=== PATIENT | female | born 1935 | race Caucasian/White ===

== ENCOUNTER → 2016-08-12 | Outpatient (CLI) | payer MEDICARE, BC ==
[~2016-08-12] MED LIST: DENOSUMAB 60 MG/ML 1 ML SYRINGE SQ ONE
[2016-08-12 11:51] VITALS: BP 127/62; PULSE 73; RESP 17; TEMP 98.7
== END | disposition home or self-care (01) ==
LOC: PROCWHC3 11:03
PROVIDERS: ATTEND Family Medicine
DX: M81.0 Age-related osteoporosis without current pathological fracture (principal)
CPT/HCPCS: 96372; J0897

== ENCOUNTER → 2017-08-30 | Outpatient (CLI) | payer MEDICARE, BC ==
[2017-08-30 11:11] VITALS: BP 143/65; PULSE 74; RESP 16; TEMP 97.9
== END | disposition home or self-care (01) ==
LOC: PROCWHC3 10:44
PROVIDERS: ATTEND Family Medicine
DX: M81.0 Age-related osteoporosis without current pathological fracture (principal)
CPT/HCPCS: 96372; J0897

== ENCOUNTER → 2018-03-24 | Outpatient (CLI) | payer MEDICARE, BC ==
[2018-03-24 12:57] VITALS: BP 159/75; PULSE 102; RESP 18; TEMP 97.9
== END ==
LOC: PROCWHC3 12:23
PROVIDERS: ATTEND Family Medicine
DX: M81.0 Age-related osteoporosis without current pathological fracture (principal)
CPT/HCPCS: 96372; J0897

== ENCOUNTER → 2018-08-25 | Outpatient (CLI) | payer MEDICARE, BC ==
[2018-08-25 12:43] VITALS: BP 124/57; PULSE 66; RESP 16; TEMP 97.9
== END ==
LOC: PROCWHC3 12:25
PROVIDERS: ATTEND Family Medicine
DX: M81.0 Age-related osteoporosis without current pathological fracture (principal)
CPT/HCPCS: 96372; J0897

== ENCOUNTER → 2018-12-21 | Outpatient (CLI) | payer MEDICARE, BC ==
--- NOTE | 2018-12-21 15:41 | US ---
EXAMINATION TYPE: US venous doppler duplex LE DATE OF EXAM: 12/21/2018 2:37 PM LOWER EXTREMITY VENOUS INSUFFICIENCY CLINICAL HISTORY: E11.51 Peripheral circulatory disorder associated. SIDE PERFORMED: Bilateral 1) Color flow is present and patency is documented in the following vessels. No DVT or SVT is noted . EIV Common Femoral Vein Deep Femoral Vein Femoral Vein Popliteal Vein Proximal Calf Veins Greater Saph Vein Upper Small Saph Vein 2) There is venous reflux noted at the following venous levels: none 3) Incompetent perforators are noted at these levels: none IMPRESSION: No evidence for venous reflux for DVT.
== END ==
LOC: RADUSWWP 13:40
PROVIDERS: ATTEND Family Medicine
DX: E11.51 Type 2 diabetes mellitus with diabetic peripheral angiopathy without gangrene (principal); R60.0 Localized edema
CPT/HCPCS: 93922; 93970

== ENCOUNTER → 2019-04-05 | Outpatient (CLI) | payer MEDICARE, BC ==
[2019-04-05 11:11] VITALS: BP 144/84; PULSE 84; RESP 16; TEMP 97.9
== END ==
LOC: PROCWHC3 10:58
PROVIDERS: ATTEND Family Medicine
DX: M81.0 Age-related osteoporosis without current pathological fracture (principal)
CPT/HCPCS: 96372; J0897

== ENCOUNTER → 2019-10-05 | Outpatient (CLI) | payer MEDICARE, BC ==
[2019-10-05 12:12] VITALS: BP 159/72; PULSE 67; RESP 16; TEMP 97.8
== END | disposition home or self-care (01) ==
LOC: PROCWHC3 11:19
DX: M81.0 Age-related osteoporosis without current pathological fracture (principal)
CPT/HCPCS: 96372; J0897

== ENCOUNTER → 2020-04-08 | Outpatient (CLI) | payer MEDICARE, BC ==
[~2020-04-08] MED LIST changes: +DENOSUMAB 60 MG/ML 1 ML SYRINGE SQ NR; -DENOSUMAB 60 MG/ML 1 ML SYRINGE SQ ONE
[2020-04-08 10:34] VITALS: BP 177/71; PULSE 89; RESP 18; TEMP 97.8
== END | disposition home or self-care (01) ==
LOC: PROCWHC3 10:25
PROVIDERS: ATTEND Family Medicine
DX: M81.0 Age-related osteoporosis without current pathological fracture (principal)
CPT/HCPCS: 96372; J0897

== ENCOUNTER → 2020-06-03 | Outpatient (CLI) | payer MEDICARE, BC ==
[2020-06-03 13:51] LABS: Basophils # (A) 0.1 k/uL (0-0.2); Basophils % (A) 1 %; Eosinophils # (A) 0.2 k/uL (0-0.7); Eosinophils % (A) 2 %; HCT 39.7 % (34.0-46.0); HGB 13.7 gm/dL (11.4-16.0); Lymphocytes % (A) 11 %; MCH 31.4 pg (25.0-35.0); MCHC 34.4 g/dL (31.0-37.0); MCV 91.3 fL (80.0-100.0); Monocytes # (A) 0.5 k/uL (0-1.0); Monocytes % (A) 5 %; Neutrophils # (A) 7.6 k/uL (1.3-7.7); Neutrophils % (A) 81 %; Platelet Count 463 k/uL (150-450); RBC 4.35 m/uL (3.80-5.40); RDW 13.2 % (11.5-15.5); WBC 9.4 k/uL (3.8-10.6)
[2020-06-03 14:00] LABS: Calcium 9.4 mg/dL (8.4-10.2); Potassium 4.2 mmol/L (3.5-5.1)
== END | disposition home or self-care (01) ==
LOC: LABPAT 12:55
PROVIDERS: ATTEND Obstetrics & Gynecology
DX: Z01.812 Encounter for preprocedural laboratory examination (principal); N81.4 Uterovaginal prolapse, unspecified; E11.9 Type 2 diabetes mellitus without complications; I10 Essential (primary) hypertension; R94.31 Abnormal electrocardiogram [ECG] [EKG]
CPT/HCPCS: 36415; 80048; 85025; 86850; 86900; 86901; 87077; 87086; 87186; 93005

== ENCOUNTER → 2020-06-07 | Outpatient (CLI) | payer MEDICARE, BC ==
--- NOTE | 2020-06-07 12:34 | CT ---
EXAMINATION TYPE: CT chest wo con DATE OF EXAM: 06/07/2020 COMPARISON: None HISTORY: Pleural scarring CT DLP: 222.6 mGycm, Automated exposure control for dose reduction was used. CONTRAST: Performed injected with 0 mL of Isovue 300. TECHNIQUE: Axial images were obtained at 5 mm thick sections. Reconstructed images are reviewed on [employer] computer in the coronal plane. FINDINGS: Portion of the thyroid visualized is normal. There is a 0.3 cm by 0.6 cm dimension focus of density at the left apex. This could be some apical sc arring. Nodule is not excluded. Follow-up is recommended. There appears to be a loculated pleural effusion on the right extending from the apex to the base. Co mpressive atelectasis may be at the right lung base. There is a lobular mass in the posterior right upper lobe measuring 5.4 x 4.4 x 6.3 cm. Additional wo rkup for neoplasm is recommended. Left lung appears otherwise clear No enlarged mediastinal or hilar adenopathy is evident. The ascending aorta diameter at the level o f the main pulmonary artery is 2.8 cm. The main pulmonary artery diameter at the bifurcation is 2.5 cm. Very minimal pericardial effusion may be present. Limited CT sections are obtained through the upper abdomen. Abdomen is essentially unremarkable. IMPRESSIONS: 1. 5 x 4 x 6 cm lobular mass right upper lobe suspicious for neoplasm. 2. Loculated right pleural effusion. 3. Compressive atelectasis right base. 4. Enlarged paratracheal lymphadenopathy suspicious for metastatic disease.
== END ==
LOC: RADCTMAIN 11:06
PROVIDERS: ATTEND Family Medicine
DX: J90 Pleural effusion, not elsewhere classified (principal); J98.11 Atelectasis; R59.1 Generalized enlarged lymph nodes
CPT/HCPCS: 71250

== ENCOUNTER 2020-06-10 13:52 | Inpatient (IN) | payer MEDICARE, BC ==
[2020-06-10] MEDS ORDERED: SODIUM CHLORIDE 0.9% 1,000 ML IV STA (14:40)
--- NOTE | 2020-06-10 14:43 | ED ---
General Adult HPI - General Chief complaint: Shortness of Breath Stated complaint: Weakness Time Seen by Provider: 06/10/20 14:02 Source: patient, family, RN notes reviewed, old records reviewed Mode of arrival: ambulatory Limitations: no limitations - History of Present Illness Initial comments: Patient is a pleasant 84-year-old female presenting to the emergency Department with complaints of fatigue and generalized weakness. Onset of symptoms was c lose to a month ago. Patient does have mild cough. No dyspnea. Patient did have computed tomography scan done several days ago with concerning for right upper lobe mass. Patient was diagnosed with pneumonia. Patient has worsening symptoms. Patient has decreased oral intake. Patient feels dry and thirsty. Patient also had recent urinary tract infection on laboratory work from a few days ago. - Related Data Home Medications Medication Instructions Recorded Confirmed Aspirin [Adult Low Dose Aspirin EC] 81 mg PO DAILY 08/12/16 04/08/20 Atorvastatin [Lipitor] 20 mg PO DAILY 08/12/16 04/08/20 Calcium Carbonate/Vitamin D3 1 each PO DAILY 08/12/16 04/08/20 [Calcium 500-Vit D3 600 Tablet] Levothyroxine Sodium [Synthroid] 100 mcg PO DAILY 08/12/16 04/08/20 amLODIPine [Norvasc] 10 mg PO DAILY 08/12/16 04/08/20 Metoclopramide HCl [Reglan] 5 mg PO TID 04/08/20 04/08/20 Semaglutide [Ozempic] 0.25 mg SQ 04/08/20 Allergies Allergy/AdvReac Type Severity Reaction Status Date / Time No Known Allergies Allergy Verified 06/10/20 14:00 Review of Systems ROS Statement: Those systems with pertinent positive or pertinent negative responses have been documented in the HPI. ROS Other: All systems not noted in ROS Statement are negative. Constitutional: Denies: fever Eyes: Denies: eye pain ENT: Denies: ear pain Respiratory: Reports: cough Cardiovascular: Denies: chest pain Endocrine: Reports: fatigue Gastrointestinal: Reports: nausea. Denies: abdominal pain Genitourinary: Denies: dysuria Musculoskeletal: Denies: back pain Skin: Denies: rash Neurological: Denies: headache Past Medical History Past Medical History: Asthma, Diabetes Mellitus, GERD/Reflux Additional Past Medical History / Comment(s): broke L knee cap, L hand,R foot, L shoulder, Multiple ribs, R hand, R foot, L wrist, Nose. Branden cataract. kidney stones. plates L wrist. osteoporosis. History of Any Multi-Drug Resistant Organisms: None Reported Past Surgical History: Cholecystectomy Past Anesthesia/Blood Transfusion Reactions: No Reported Reaction Past Psychological History: No Psychological Hx Reported Smoking Status: Former smoker Past Alcohol Use History: None Reported Past Drug Use History: None Reported General Exam Limitations: no limitations General appearance: alert, in no apparent distress Head exam: Present: atraumatic Eye exam: Present: normal appearance, PERRL ENT exam: Present: mucous membranes dry Neck exam: Present: normal inspection Respiratory exam: Present: normal lung sounds bilaterally Cardiovascular Exam: Present: regular rate, normal rhythm GI/Abdominal exam: Present: soft. Absent: tenderness Extremities exam: Present: normal inspection. Absent: pedal edema, calf tenderness Neurological exam: Present: alert Psychiatric exam: Present: normal affect, normal mood Skin exam: Present: normal color Course Vital Signs 06/10/20 06/10/20 06/10/20 13:58 15:00 15:23 Temperature 98.1 F Pulse Rate 102 H 94 Respiratory 24 20 18 Rate Blood Pressure 130/61 108/73 O2 Sat by Pulse 91 L 95 Oximetry - Reevaluation(s) Reevaluation #1: 06/10/20 16:02 Patient has document a urinary tract infection and questionable pneumonia. Patient does meet sepsis criteria diagnosed at 1600. Blood culture and lactic acid were ordered. IV antibiotics ordered. EKG Findings - EKG Comments: EKG Findings:: Sinus rhythm with rate of 96. MA 142. QRS 70. QT 328. QTC 419. Normal axis. Septal Q waves. No acute ST change. Medical Decision Making - Medical Decision Making Patient reevaluated. Patient and family updated on results and plan. Case was discussed with Dr. Judd, who will admit covering with Dr. Munson. - Lab Data Result diagrams: 06/10/20 14:58 06/10/20 14:58 Lab Results 06/10/20 06/10/20 06/10/20 Range/Units 14:58 14:58 14:58 WBC 8.6 (3.8-10.6) k/uL RBC 4.69 (3.80-5.40) m/uL Hgb 14.0 (11.4-16.0) gm/dL Hct 42.4 (34.0-46.0) % MCV 90.4 (80.0-100.0) fL MCH 29.9 (25.0-35.0) pg MCHC 33.1 (31.0-37.0) g/dL RDW 13.8 (11.5-15.5) % Plt Count 345 (150-450) k/uL MPV 6.9 Neutrophils % 89 % Lymphocytes % 3 % Monocytes % 5 % Eosinophils % 1 % Basophils % 0 % Neutrophils # 7.7 (1.3-7.7) k/uL Lymphocytes # 0.3 L (1.0-4.8) k/uL Monocytes # 0.5 (0-1.0) k/uL Eosinophils # 0.1 (0-0.7) k/uL Basophils # 0.0 (0-0.2) k/uL PT 12.4 H (9.0-12.0) sec INR 1.2 H (<1.2) APTT 27.2 (22.0-30.0) sec Sodium 132 L (137-145) mmol/L Potassium 4.5 (3.5-5.1) mmol/L Chloride 96 L (98-107) mmol/L Carbon Dioxide 18 L (22-30) mmol/L Anion Gap 18 mmol/L BUN 26 H (7-17) mg/dL Creatinine 1.15 H (0.52-1.04) mg/dL Est GFR (CKD-EPI)AfAm 51 (>60 ml/min/1.73 sqM) Est GFR (CKD-EPI)NonAf 45 (>60 ml/min/1.73 sqM) Glucose 183 H (74-99) mg/dL Plasma Lactic Acid Brandon (0.7-2.0) mmol/L Calcium 9.5 (8.4-10.2) mg/dL Total Bilirubin 0.7 (0.2-1.3) mg/dL AST 35 (14-36) U/L ALT 18 (4-34) U/L Alkaline Phosphatase 99 (38-126) U/L Total Protein 7.9 (6.3-8.2) g/dL Albumin 4.5 (3.5-5.0) g/dL 06/10/20 Range/Units 14:58 WBC (3.8-10.6) k/uL RBC (3.80-5.40) m/uL Hgb (11.4-16.0) gm/dL Hct (34.0-46.0) % MCV (80.0-100.0) fL MCH (25.0-35.0) pg MCHC (31.0-37.0) g/dL RDW (11.5-15.5) % Plt Count (150-450) k/uL MPV Neutrophils % % Lymphocytes % % Monocytes % % Eosinophils % % Basophils % % Neutrophils # (1.3-7.7) k/uL Lymphocytes # (1.0-4.8) k/uL Monocytes # (0-1.0) k/uL Eosinophils # (0-0.7) k/uL Basophils # (0-0.2) k/uL PT (9.0-12.0) sec INR (<1.2) APTT (22.0-30.0) sec Sodium (137-145) mmol/L Potassium (3.5-5.1) mmol/L Chloride (98-107) mmol/L Carbon Dioxide (22-30) mmol/L Anion Gap mmol/L BUN (7-17) mg/dL Creatinine (0.52-1.04) mg/dL Est GFR (CKD-EPI)AfAm (>60 ml/min/1.73 sqM) Est GFR (CKD-EPI)NonAf (>60 ml/min/1.73 sqM) Glucose (74-99) mg/dL Plasma Lactic Acid Brandon 1.6 (0.7-2.0) mmol/L Calcium (8.4-10.2) mg/dL Total Bilirubin (0.2-1.3) mg/dL AST (14-36) U/L ALT (4-34) U/L Alkaline Phosphatase (38-126) U/L Total Protein (6.3-8.2) g/dL Albumin (3.5-5.0) g/dL - Radiology Data Radiology results: image reviewed (Chest x-ray shows right mid to upper lobe mass with right-sided effusion. Cannot exclude pneumonia.) Critical Care Time Critical Care Time: Yes Total Critical Care Time: 32 Disposition Clinical Impression: Urinary tract infection, Lung mass, Pneumonia, Sepsis Disposition: ADMITTED IP TO THIS HOSP Is patient prescribed a controlled substance at d/c from ED?: No Referrals: Aguilar Aj MD [Primary Care Provider] - 1-2 days Decision Time: 16:02
[2020-06-10 15:12] LABS: Basophils % (A) 0 %; Eosinophils # (A) 0.1 k/uL (0-0.7); Eosinophils % (A) 1 %; HCT 42.4 % (34.0-46.0); Lymphocytes # (A) 0.3 k/uL (1.0-4.8); Lymphocytes % (A) 3 %; MCH 29.9 pg (25.0-35.0); MCHC 33.1 g/dL (31.0-37.0); MCV 90.4 fL (80.0-100.0); Mean Platelet Volume 6.9; Monocytes # (A) 0.5 k/uL (0-1.0); Monocytes % (A) 5 %; Neutrophils # (A) 7.7 k/uL (1.3-7.7); Neutrophils % (A) 89 %; Platelet Count 345 k/uL (150-450); RBC 4.69 m/uL (3.80-5.40); RDW 13.8 % (11.5-15.5); WBC 8.6 k/uL (3.8-10.6)
[2020-06-10 15:20] LABS: INR 1.2 (<1.2); Partial Thromboplastin Time 27.2 sec (22.0-30.0); Prothrombin Time 12.4 sec (9.0-12.0)
[2020-06-10 15:22] LABS: Albumin 4.5 g/dL (3.5-5.0); Calcium 9.5 mg/dL (8.4-10.2); Potassium 4.5 mmol/L (3.5-5.1); Total Bilirubin 0.7 mg/dL (0.2-1.3); Total Protein 7.9 g/dL (6.3-8.2)
--- NOTE | 2020-06-10 15:46 | XR ---
EXAMINATION TYPE: XR chest 2V DATE OF EXAM: 06/10/2020 COMPARISON: CT chest 07/08/2020 HISTORY: Abnormal chest CT, lung mass TECHNIQUE: Frontal and lateral views of the chest are obtained. FINDINGS: Lung mass in the right upper lobe is again seen, there is some volume loss in the right he mithorax, right hemidiaphragm is obscured and there is blunting the right costophrenic angle. There i s no evident pneumothorax. Aorta is dense. Heart is partially obscured and not felt likely to be enla rged. Old right-sided rib fractures again noted on the right. Question some left-sided patchy density within the lungs. IMPRESSION: Findings suggest right upper lobe lung mass, pleural effusion, difficult to exclude pneu monia, atelectasis
[2020-06-10] MEDS ORDERED: PNEUMONIA PROTOCOL UTILIZED 1 EACH MISC PO PRN (16:05)
[2020-06-10] MEDS ORDERED: AZITHROMYCIN 500 MG in SODIUM CHLORIDE 0.9% 250 ML IVPB STA (16:05)
[2020-06-10] MEDS ORDERED: ACETAMINOPHEN TAB 325 MG TAB PO STA (16:16)
[2020-06-10] MEDS: SODIUM CHLORIDE 0.9% 1,000 ML IV SCH (16:34)
[2020-06-11] MEDS: SODIUM CHLORIDE 0.9% 1,000 ML IV SCH ×3 (02:12→20:46)
--- NOTE | 2020-06-11 08:18 | XR ---
EXAMINATION TYPE: XR chest 2V DATE OF EXAM: 06/11/2020 COMPARISON: 06/11/1999 TECHNIQUE: PA and lateral views submitted. HISTORY: Difficulty breathing FINDINGS: Lung mass in the right upper lobe is again seen, there is some volume loss in the right hemithorax, r ight hemidiaphragm is obscured and there is blunting the right costophrenic angle. There is no eviden t pneumothorax. Aorta is dense. Heart is partially obscured and not felt likely to be enlarged. Old r ight-sided rib fractures again noted on the right. Question some left-sided patchy density within the lungs. IMPRESSION: 1. Right-sided pleural-parenchymal changes stable from prior exam. A large right lung mass with areas of consolidation and pleural effusion noted. Underlying pneumonia not excluded
[2020-06-11] MEDS ORDERED: METOCLOPRAMIDE 5 MG TAB PO PRN (08:31)
[2020-06-11] MEDS: amLODIPine 10 MG TAB PO SCH (09:35)
[2020-06-11] MEDS: LEVOTHYROXINE 100 MCG TAB PO SCH (09:39)
[2020-06-11] MEDS: FAMOTIDINE 20 MG TAB PO SCH (09:39)
[2020-06-11 11:27] LABS: Glucose,Whole Blood 112 mg/dL (75-99)
[2020-06-11] MEDS: INSULIN ASPART (NovoLOG) 100 UNIT/ML VIAL SQ SCH ×3 (11:30→20:45)
--- NOTE | 2020-06-11 12:07 | P.CNPUL ---
History of Present Illness Consult date: 06/11/20 Reason for consult: dyspnea, lung mass History of present illness: This is a 84-year-old female patient was admitted for some increased shortness of breath and generalized weakness. Note that the patient has been having this issue for quite some time. The patient a chest x-ray on outpatient basis that showed a right upper lobe mass. The patient was in a CAT scan of the was done on 06/07/2020 patient was found to have a lobular mass in the supraclavicular low measuring 5.4 x 4.4 x 6.3 cm in size and neoplasm is highly suspected. At the same time, the patient have another 6 mm nodular focus in the left apex, apical scarring, a loculated right-sided effusion was present along with compressive atelectasis of the right lung base and there was enlarged mediastinal lymphadenopathy. Upon further review, there is paratracheal lymphadenopathy to suspicious also for metastasis. Left lung was essentially clear. The pulmonary consultation was requested. There was a COVID 19 screening was done that was negative. Liver function test is within normal limits. BUN is 26 with a creatinine of 1.15.. The patient was hospitalized. The patient was further broad-spectrum antibiotics with initially Rocephin and Zithromax. The patient was taking Bactrim on outpatient basis. Review of Systems Constitutional: Denies chills, Denies fever Eyes: denies as per HPI, denies blurred vision, denies bulging eye, denies decr eased vision, denies diplopia, denies discharge, denies dry eye, denies irritation, denies itching, denies pain, denies photophobia, denies loss of peripheral vision, denies loss of vision, denies tunnel vision/blind spots Ears: deny: decreased hearing, ear discharge, earache, tinnitus Ears, nose, mouth and throat: Reports as per HPI Breasts: absent: as per HPI, change in shape, gynecomastia, masses, nipple discharge, pain, skin changes, swelling Cardiovascular: Reports decreased exercise tolerance, Reports dyspnea on exertion Respiratory: Reports dyspnea Gastrointestinal: Reports as per HPI Genitourinary: Reports as per HPI Menstruation: Reports as per HPI Musculoskeletal: Reports as per HPI Musculoskeletal: absent: ankle pain, ankle stiffness, ankle swelling, as per HPI, elbow pain, elbow stiffness, elbow swelling, foot pain, foot stiffness, foot swelling, hand pain, hand stiffness, hand swelling, hip pain, hip stiffness, hip swelling, knee pain, knee stiffness, knee swelling, shoulder pain, shoulder stiffness, shoulder swelling, wrist pain, wrist stiffness, wrist swelling Integumentary: Reports as per HPI Neurological: Reports as per HPI Psychiatric: Reports as per HPI Endocrine: Reports as per HPI Hematologic/Lymphatic: Reports as per HPI Allergic/Immunologic: Reports as per HPI Past Medical History Past Medical History: Asthma, Diabetes Mellitus, GERD/Reflux Additional Past Medical History / Comment(s): broke L knee cap, L hand,R foot, L shoulder, Multiple ribs, R hand, R foot, L wrist, Nose. Branden cataract. kidney stones. plates L wrist. osteoporosis. History of Any Multi-Drug Resistant Organisms: None Reported Past Surgical History: Cholecystectomy Past Anesthesia/Blood Transfusion Reactions: No Reported Reaction Past Psychological History: No Psychological Hx Reported Smoking Status: Former smoker Past Alcohol Use History: None Reported Past Drug Use History: None Reported Medications and Allergies Home Medications Medication Instructions Recorded Confirmed Type Atorvastatin [Lipitor] 20 mg PO HS 08/12/16 06/10/20 History Levothyroxine Sodium [Synthroid] 100 mcg PO DAILY 08/12/16 06/10/20 History amLODIPine [Norvasc] 10 mg PO DAILY 08/12/16 06/10/20 History Metoclopramide HCl [Reglan] 5 mg PO TID PRN 04/08/20 06/10/20 History Exenatide Microspheres [Bydureon 2 mg SQ CUMMINGS 06/10/20 06/10/20 History Pen] Famotidine 40 mg PO DAILY 06/10/20 06/10/20 History Pantoprazole Sodium 40 mg PO HS 06/10/20 06/10/20 History Sulfamethoxazole/Trimethoprim 1 tab PO BID 06/10/20 06/10/20 History [Bactrim DS 800-160 mg] Allergies Allergy/AdvReac Type Severity Reaction Status Date / Time No Known Allergies Allergy Verified 06/10/20 14:00 Physical Exam Vitals: Vital Signs Temp Pulse Pulse Resp BP BP Pulse Ox 06/11/20 07:36 97.8 F 78 20 113/45 94 L 06/11/20 02:22 97.5 F L 89 116/65 93 L 03/23/21 02:07 18 06/11/20 01:13 97.9 F 86 18 122/63 92 L 06/11/20 00:00 98.0 F 90 18 114/57 92 L 06/10/20 19:13 94 L 06/10/20 19:00 91 18 94 L 06/10/20 18:00 91 18 107/61 94 L 06/10/20 17:00 18 94 L 06/10/20 16:00 99 18 138/63 94 L 06/10/20 15:23 18 06/10/20 15:00 94 20 108/73 95 06/10/20 13:58 98.1 F 102 H 24 130/61 91 L Intake and Output 06/10/20 06/11/20 06/11/20 22:59 06:59 14:59 Other: Voiding Method Toilet # Voids 1 Weight 58.513 kg Gen. appearance, comfortable active distress and the patient is currently on 2 L about 2 by nasal cannula Head exam was generally normal. There was no scleral icterus or corneal arcus. Mucous membranes were moist. Neck was supple and without jugular venous distension, thyromegaly, or carotid bruits. Carotids were easily palpable bilaterally. There was no adenopathy. Lungs sounds are diminished in the right lung base along with that there is dullness to percussion and the rest of the face symmetrical diminished breath on the right lung base Cardiac exam revealed the PMI to be normally situated and sized. The rhythm was regular and no extrasystoles were noted during several minutes of auscultation. The first and second heart sounds were normal and physiologic splitting of the second heart sound was noted. There were no murmurs, rubs, clicks, or gallops. Abdominal exam revealed normal bowel sounds. The abdomen was soft, non-tender, and without masses, organomegaly, or appreciable enlargement of the abdominal aorta. Examination of the extremities revealed easily palpable radial, femoral and pedal pulses. There was no cyanosis, clubbing or edema. Examination of the skin revealed no evidence of significant rashes, suspicious appearing nevi or other concerning lesions. Neurologically, the patient is awake and alert and the patient does not have any focal neurological deficit. Cranial nerves are essentially intact. Results - Laboratory Findings CBC and BMP: 06/10/20 14:58 06/10/20 14:58 PT/INR, D-dimer PT 12.4 sec (9.0-12.0) H 06/10/20 14:58 INR 1.2 (<1.2) H 06/10/20 14:58 Abnormal lab findings: Abnormal Labs 06/10/20 06/10/20 06/10/20 14:58 14:58 14:58 Lymphocytes # 0.3 L PT 12.4 H INR 1.2 H Sodium 132 L Chloride 96 L Carbon Dioxide 18 L BUN 26 H Creatinine 1.15 H Glucose 183 H POC Glucose (mg/dL) 06/11/20 11:26 Lymphocytes # PT INR Sodium Chloride Carbon Dioxide BUN Creatinine Glucose POC Glucose (mg/dL) 112 H - Diagnostic Findings Chest x-ray: image reviewed CT scan - chest: image reviewed Assessment and Plan Plan: Assessment 1 right upper lobe mass, lobulated,5.4 x 4.4 x 6.3 , involving the posterior/apical segment of the right upper lobe associated with a right-sided pleural effusion and right paratracheal lymphadenopathy and some atelectatic changes in the right lung base. Findings are highly suspicious for a primary bronchogenic carcinoma. 2 shortness of breath secondary to above, 3 diabetes mellitus 4 history of kidney stones 5 osteoarthritis 6 osteoporosis 7 history of kidney stones Plan patient will need a diagnostic and therapeutic procedure. This will be a thoracentesis which would improve the patient shortness of breath and at the same time may be diagnostic in terms of malignancy. Also, a bronchoscopy will be done today to stage especially if the calculus comes back negative and cytology. Is a high suspicion for underlying malignancy family concern is an underlying bronchogenic carcinoma the lung. The patient will be given all the details and the procedure be explained and further recommendations are to follow.
--- NOTE | 2020-06-11 12:25 | P.PCN ---
Date of Procedure: 06/11/20 Preoperative Diagnosis: Right-sided pleural effusion, right upper lobe mass Postoperative Diagnosis: Right-sided pleural effusion, right upper lobe mass Procedure(s) Performed: Thoracentesis Anesthesia: local Surgeon: Pete Rodriguez Estimated Blood Loss (ml): 0 Pathology: other Disposition: floor Operative Findings: A time out was performed and the chest x-ray was reviewed, the appropriate side was confirmed and marked. My hands were washed immediately prior to the procedure. I wore a surgical cap, mask with protective eyewear, sterile gown and sterile gloves throughout the procedure. The patient was prepped and draped in a sterile manner using chlorhexidine scrub after the appropriate level was percussed and confirmed by ultrasound. 1% lidocaine was used to anesthesize the skin, subcutaneous tissue, superior aspect of the rib periosteum and parietal pleura. A finder needle was then introduced over the superior aspect of the rib to locate the pleural fluid; 2colored fluid was aspirated at a depth of approximately 2 cm. A 10-blade scalpel was used to pili the skin at the insertion site. The [id number] needle was then introduced through the skin incision into the pleural space using negative aspiration pressure and the red colometric indicator to confirm appropriate positioning of the needle. The thoracentesis catheter was then threaded without difficulty. 750 ml of turbid colored fluid was removed without difficulty. The catheter was then removed. No immediate complications were noted during the procedure. A post-procedure chest x-ray is pending at the time of this note. The fluid will be sent for studies. Estimated blood loss is 0cc
--- NOTE | 2020-06-11 12:52 | XR ---
EXAMINATION TYPE: XR chest 1V portable DATE OF EXAM: 06/11/2020 COMPARISON: 06/11/2020 HISTORY: Post right thoracentesis TECHNIQUE: Single frontal view of the chest is obtained. FINDINGS: Persistent pleural-based density and consolidation with large right upper lobe lung mass. Left lung is clear. There is a deformity of the left humerus. Diffuse osteopenia. No pneumothorax. Bi apical pleural thickening. Elevated right hemidiaphragm. Atherosclerotic change of the aorta. IMPRESSION: 1. Right upper lobe lung mass with right lower lobe consolidation and small effusion.
[2020-06-11] MEDS: AZITHROMYCIN 500 MG TAB PO SCH (16:28)
[2020-06-11 16:42] LABS: Glucose,Whole Blood 126 mg/dL (75-99)
[2020-06-11 17:21] LABS: Appearance,BF Hazy; Nucleated Cells, Body Fluid 140 /uL; RBC, Body Fluid 1630 /uL
[2020-06-11 17:23] LABS: Mononuclear WBC,Body Fluid 98 %; Total Cells Counted,Body Fluid 100
[2020-06-11 20:37] LABS: Glucose,Whole Blood 132 mg/dL (75-99)
[2020-06-11] MEDS: ATORVASTATIN 20 MG TAB PO SCH (20:57)
[2020-06-11] MEDS: PANTOPRAZOLE 40 MG TABLET PO SCH (20:57)
--- NOTE | 2020-06-12 00:10 | P.HPIM ---
History of Present Illness H&P Date: 06/11/20 Chief Complaint: Short of breath History of presenting complaint: This is a pleasant 84-year-old patient of Dr. valdes. Chronic stable medical conditions include diabetes, GERD, osteoarthritis, kidney stones. Patient presents for increasing shortness of breath more so in the last 1 week. Does been present for some time. Has got a cough. No fever no chills. Patient appetite has been poor. Has lost some weight. Does feel a bit tired and rundown. X-ray was showing a mass in the ER. Admitted for same. Review of systems: GEN.: Decreased appetite, weight loss EYES: None HEENT: None NECK: None RESPIRATORY: As above CARDIOVASCULAR: None GASTROINTESTINAL: None GENITOURINARY: None MUSCULOSKELETAL: None LYMPHATICS: None HEMATOLOGICAL: None PSYCHIATRY: None NEUROLOGICAL: None Past medical history to include: Asthma, diabetes, GERD, kidney stones, osteoporosis Social history: lives with her. Patient smoked for about 17 years stopped about 40 years ago. No alcohol Family history: Reviewed, noncontributory to presentation Physical examination: VITAL SIGNS: 98.1, 94, 20, 108/73, 91% on room air upon presentation GENERAL: BMI 22.9, not reclining in bed, tired. EYES: Pupils equal. Conjunctiva palel. HEENT: External appearance of nose and ears normal, oral cavity grossly normal. NECK: JVD not raised; masses not palpable. HEART: First and second heart sounds are normal; no edema. LUNGS: Respiratory rate increased, bronchial breathing on the right side dullness to percussion at the base. ABDOMEN: Soft, nontender, liver spleen not palpable, no masses palpable. PSYCH: [Alert and oriented x3; mood and affect tired l. NEUROLOGICAL: Cranial nerves grossly intact; no facial asymmetry, power and sensation grossly intact. LYMPHATICS: No lymph nodes palpable in the axilla and neck INVESTIGATIONS, reviewed in the clinical context: WBC 8.6 hemoglobin 14 platelets 345 potassium 4.5 bun 26 creatinine 1.15 Coronavirus [PCR]-not detected EKG tracing personally reviewed by me-normal sinus rhythm with some nonspecific changes Chest x-ray film personally reviewed by me-appears to be right upper lobe mass. And right-sided pleural effusion Assessment and plan: -Right upper lobe mass in a patient was an ex-smoker with decreased appetite and weight loss. Strongly suspicious for malignancy. Pulmonary's consulted. Will need a tissue diagnosis -Large right pleural effusion. Patient will need to have thoracentesis and fluid to be sent off for cytology -Hypothyroid, continue with Synthroid -Essential hypertension continue with Norvasc -Hyperlipidemia continue with Lipitor -DVT prophylaxis. Subcu Lovenox Secondary pneumonia less likely. We discussed with pulmonary and then DC antibiotics care was discussed with the patient Given the complexity and severity of patient's condition expect the patient to be in the hospital at least for 2 overnights Past Medical History Past Medical History: Asthma, Diabetes Mellitus, GERD/Reflux Additional Past Medical History / Comment(s): broke L knee cap, L hand,R foot, L shoulder, Multiple ribs, R hand, R foot, L wrist, Nose. Branden cataract. kidney stones. plates L wrist. osteoporosis. History of Any Multi-Drug Resistant Organisms: None Reported Past Surgical History: Cholecystectomy Past Anesthesia/Blood Transfusion Reactions: No Reported Reaction Past Psychological History: No Psychological Hx Reported Smoking Status: Former smoker Past Alcohol Use History: None Reported Past Drug Use History: None Reported Medications and Allergies Home Medications Medication Instructions Recorded Confirmed Type Atorvastatin [Lipitor] 20 mg PO HS 08/12/16 06/10/20 History Levothyroxine Sodium [Synthroid] 100 mcg PO DAILY 08/12/16 06/10/20 History amLODIPine [Norvasc] 10 mg PO DAILY 08/12/16 06/10/20 History Metoclopramide HCl [Reglan] 5 mg PO TID PRN 04/08/20 06/10/20 History Exenatide Microspheres [Bydureon 2 mg SQ CUMMINGS 06/10/20 06/10/20 History Pen] Famotidine 40 mg PO DAILY 06/10/20 06/10/20 History Pantoprazole Sodium 40 mg PO HS 06/10/20 06/10/20 History Sulfamethoxazole/Trimethoprim 1 tab PO BID 06/10/20 06/10/20 History [Bactrim DS 800-160 mg] Allergies Allergy/AdvReac Type Severity Reaction Status Date / Time No Known Allergies Allergy Verified 06/10/20 14:00 Physical Exam Vitals: Vital Signs Temp Pulse Pulse Resp BP BP Pulse Ox 06/11/20 07:36 97.8 F 78 20 113/45 94 L 06/11/20 02:22 97.5 F L 89 116/65 93 L 06/11/20 02:07 18 06/11/20 01:13 97.9 F 86 18 122/63 92 L 06/11/20 00:00 98.0 F 90 18 114/57 92 L 06/10/20 19:13 94 L 06/10/20 19:00 91 18 94 L 06/10/20 18:00 91 18 107/61 94 L 06/10/20 17:00 18 94 L 06/10/20 16:00 99 18 138/63 94 L 06/10/20 15:23 18 06/10/20 15:00 94 20 108/73 95 06/10/20 13:58 98.1 F 102 H 24 130/61 91 L Intake and Output 06/10/20 06/11/20 06/11/20 22:59 06:59 14:59 Other: # Voids 1 Weight 58.513 kg Results CBC & Chem 7: 06/10/20 14:58 06/10/20 14:58 Labs: Abnormal Lab Results - Last 24 Hours (Table) 06/10/20 06/10/20 06/10/20 Range/Units 14:58 14:58 14:58 Lymphocytes # 0.3 L (1.0-4.8) k/uL PT 12.4 H (9.0-12.0) sec INR 1.2 H (<1.2) Sodium 132 L (137-145) mmol/L Chloride 96 L (98-107) mmol/L Carbon Dioxide 18 L (22-30) mmol/L BUN 26 H (7-17) mg/dL Creatinine 1.15 H (0.52-1.04) mg/dL Glucose 183 H (74-99) mg/dL Thrombosis Risk Factor Assmnt - Choose All That Apply Each Risk Factor Represents 3 Points: Age 75 years or older Thrombosis Risk Factor Assessment Total Risk Factor Score: 3 Thrombosis Risk Factor Assessment Level: Moderate Risk
[2020-06-12 04:14] LABS: Glucose, BF Source Pleural Fluid; Glucose, Body Fluid 123 mg/dL; LDH, Body Fluid Source Pleural Fluid
[2020-06-12] MEDS: LEVOTHYROXINE 100 MCG TAB PO SCH (05:28)
[2020-06-12 07:11] LABS: Glucose,Whole Blood 96 mg/dL (75-99)
[2020-06-12] MEDS: INSULIN ASPART (NovoLOG) 100 UNIT/ML VIAL SQ SCH ×4 (08:27→20:27)
[2020-06-12] MEDS: SODIUM CHLORIDE 0.9% 1,000 ML IV SCH ×2 (08:37→17:21)
[2020-06-12] MEDS: ACETAMINOPHEN TAB 500 MG TAB PO PRN ×2 (08:37→19:54)
[2020-06-12] MEDS: FAMOTIDINE 20 MG TAB PO SCH (08:39)
[2020-06-12] MEDS: amLODIPine 10 MG TAB PO SCH (08:39)
[2020-06-12] MEDS: ENOXAPARIN 40 MG/0.4 ML SYRINGE SQ SCH (09:07)
[2020-06-12 11:47] LABS: Glucose,Whole Blood 134 mg/dL (75-99)
--- NOTE | 2020-06-12 12:05 | P.PN ---
Subjective Progress Note Date: 06/12/20 Principal diagnosis: Shortness of breath, lung mass, pleural effusion This is a 84-year-old female patient was admitted for some increased shortness of breath and generalized weakness. Note that the patient has been having this issue for quite some time. The patient a chest x-ray on outpatient basis that showed a right upper lobe mass. The patient was in a CAT scan of the was done on 06/07/2020 patient was found to have a lobular mass in the supraclavicular low measuring 5.4 x 4.4 x 6.3 cm in size and neoplasm is highly suspected. At the same time, the patient have another 6 mm nodular focus in the left apex, apical scarring, a loculated right-sided effusion was present along with compressive atelectasis of the right lung base and there was enlarged mediastinal lymphadenopathy. Upon further review, there is paratracheal lymphadenopathy to suspicious also for metastasis. Left lung was essentially clear. The pulmonary consultation was requested. There was a COVID 19 screening was done that was negative. Liver function test is within normal limits. BUN is 26 with a creatinine of 1.15.. The patient was hospitalized. The patient was further broad-spectrum antibiotics with initially Rocephin and Zithromax. The patient was taking Bactrim on outpatient basis. The patient is seen today 06/12/2020 in follow-up on the regular medical floor. She is currently sitting up in a chair at the bedside. Awake and alert in no acute distress. Maintaining O2 saturation in the 90s on 2 L/m per nasal cannula. Afebrile. Hemodynamically stable. She states she is breathing easier today compared to yesterday. She did undergo a right-sided thoracentesis by Dr. Rodriguez at which x-ray 750 mL of turbulent fluid was removed. Protein 3.8. LDH 745. Cultures and cytology pending. The patient does have a previous history of right-sided breast cancer with lumpectomy and radiation treatments followed by tamoxifen for 5 years that was diagnosed back in 2009. She is currently on antibiotics in the form of ceftriaxone and azithromycin. Anticoagulated with Lovenox. Objective - Vital Signs Vital signs: Vital Signs Temp 98.1 F 06/12/20 07:40 Pulse 74 06/12/20 07:40 Resp 16 06/12/20 07:40 BP 126/57 06/12/20 07:40 Pulse Ox 91 L 06/12/20 07:40 Intake & Output 06/11/20 06/12/20 06/12/20 18:59 06:59 18:59 Intake Total 540 Balance 540 Intake: Oral 540 Other: Voiding Method Toilet Toilet Toilet # Voids 1 4 - Exam Gen. appearance: in a chair at the bedside. Awake and alert 84-year-old female patient, comfortable active distress and the patient is currently on 2 L by nasal cannula Head exam was generally normal. There was no scleral icterus or corneal arcus. Mucous membranes were moist. Neck was supple and without jugular venous distension, thyromegaly, or carotid bruits. Carotids were easily palpable bilaterally. There was no adenopathy. Lungs sounds are diminished in the right lung base along with that there is dullness to percussion and the rest of the face symmetrical diminished breath on the right lung base Cardiac exam revealed the PMI to be normally situated and sized. The rhythm was regular and no extrasystoles were noted during several minutes of auscultation. The first and second heart sounds were normal and physiologic splitting of the second heart sound was noted. There were no murmurs, rubs, clicks, or gallops. Abdominal exam revealed normal bowel sounds. The abdomen was soft, non-tender, and without masses, organomegaly, or appreciable enlargement of the abdominal aorta. Examination of the extremities revealed easily palpable radial, femoral and pedal pulses. There was no cyanosis, clubbing or edema. Examination of the skin revealed no evidence of significant rashes, suspicious appearing nevi or other concerning lesions. Neurologically, the patient is awake and alert and the patient does not have any focal neurological deficit. Cranial nerves are essentially intact. - Labs CBC & Chem 7: 06/10/20 14:58 06/10/20 14:58 Labs: Abnormal Lab Results - Last 24 Hours (Table) 06/11/20 06/11/20 06/12/20 Range/Units 16:41 20:35 11:41 POC Glucose (mg/dL) 126 H 132 H 134 H (75-99) mg/dL Microbiology - Last 24 Hours (Table) 06/11/20 12:00 Gram Stain - Preliminary Pleural Fluid Body Fluid Culture - Preliminary 06/11/20 12:30 Fungal Culture - Preliminary Pleural Fluid 06/11/20 12:30 Acid Fast Bacilli Culture - Preliminary Pleural Fluid 06/10/20 14:35 Blood Culture - Preliminary Blood No Growth after 24 hours Assessment and Plan Assessment: 1 right upper lobe mass, lobulated,5.4 x 4.4 x 6.3 , involving the posterior/apical segment of the right upper lobe associated with a right-sided pleural effusion and right paratracheal lymphadenopathy and some atelectatic changes in the right lung base. Findings are highly suspicious for a primary bronchogenic carcinoma. Status post right-sided thoracentesis on 06/11/2020 with 750 ML's turbulent fluid removed. Cytology pending. 2 History of right-sided breast cancer status post lumpectomy and radiation treatments in 2009, completed a 5 year course of tamoxifen 3 diabetes mellitus 4 history of kidney stones 5 osteoarthritis 6 osteoporosis 7 history of kidney stones Plan: The patient was seen and evaluated by Dr. Rodriguez Cytology and cultures of the fluid pleural fluid are pending Highly suspicious for underlying malignancy Continue current treatment plan We'll continue to follow I, the cosigning physician, performed a history & physical examination of the patient. Lungs sounds crackles in the right base, diminished. Maintaining good O2 saturations in the 90s on 2 L/m per nasal. I discussed the assessment and plan of care with my nurse practitioner, Isatu Turcios. I attest to the above note as dictated by her.
[2020-06-12] MEDS: AZITHROMYCIN 500 MG TAB PO SCH (15:55)
[2020-06-12 17:18] LABS: Glucose,Whole Blood 182 mg/dL (75-99)
[2020-06-12] MEDS: PANTOPRAZOLE 40 MG TABLET PO SCH (19:54)
[2020-06-12] MEDS: ATORVASTATIN 20 MG TAB PO SCH (19:54)
--- NOTE | 2020-06-13 00:36 | P.PN ---
Progress Note - Text Progress Note Date: 06/12/20 Chief Complaint: Short of breath History of presenting complaint: This is a pleasant 84-year-old patient of Dr. valdes. Chronic stable medical conditions include diabetes, GERD, osteoarthritis, kidney stones. Patient presents for increasing shortness of breath more so in the last 1 week. Does been present for some time. Has got a cough. No fever no chills. Patient appetite has been poor. Has lost some weight. Does feel a bit tired and rundown. X-ray was showing a mass in the ER. Admitted for same. Admitted with a lung mass and right pleural effusion. 7 50 mL of thoracentesis off turbid fluid was carried out. Today-laying in bed. Short of breath. Tired. Review of systems: Was done for constitutional, cardiovascular, GI, pulmonary. relevant finding as above Active Medications Acetaminophen (Acetaminophen Tab 500 Mg Tab) 500 mg PO Q6HR PRN PRN Reason: Fever and/ or Pain Last Admin: 06/12/20 19:54 Dose: 500 mg Documented by: Amlodipine Besylate (Amlodipine 10 Mg Tab) 10 mg PO DAILY [facility] Last Admin: 06/12/20 08:39 Dose: 10 mg Documented by: Atorvastatin Calcium (Atorvastatin 20 Mg Tab) 20 mg PO HS [facility] Last Admin: 06/12/20 19:54 Dose: 20 mg Documented by: Azithromycin (Azithromycin 500 Mg Tab) 500 mg PO DAILY@1600 [facility] Stop: 06/15/20 16:01 Last Admin: 06/12/20 15:55 Dose: 500 mg Documented by: Enoxaparin Sodium (Enoxaparin 40 Mg/0.4 Ml Syringe) 40 mg SQ DAILY [facility] Last Admin: 06/12/20 09:07 Dose: 40 mg Documented by: Famotidine (Famotidine 20 Mg Tab) 20 mg PO DAILY [facility] Ceftriaxone Sodium 1 gm/ (Sodium Chloride) 50 mls @ 100 mls/hr IVPB Q24HR [facility] Last Admin: 06/12/20 08:37 Dose: 100 mls/hr Documented by: Sodium Chloride (Saline 0.9%) 1,000 mls @ 100 mls/hr IV .Q10H [facility] Last Admin: 06/12/20 17:21 Dose: 100 mls/hr Documented by: Insulin Aspart (Insulin Aspart (Novolog) 100 Unit/Ml Vial) 0 unit SQ ACHS [facility]; Protocol Last Admin: 06/12/20 20:27 Dose: Not Given Documented by: Levothyroxine Sodium (Levothyroxine 100 Mcg Tab) 100 mcg PO DAILY@0630 [facility] Last Admin: 06/12/20 05:28 Dose: 100 mcg Documented by: Metoclopramide HCl (Metoclopramide 5 Mg Tab) 5 mg PO TID PRN PRN Reason: Nausea Miscellaneous Information (Pneumonia Protocol Utilized 1 Each Misc) 1 each PO ONCE PRN PRN Reason: Per Protocol Pantoprazole Sodium (Pantoprazole 40 Mg Tablet) 40 mg PO HS [facility] Last Admin: 06/12/20 19:54 Dose: 40 mg Documented by: Past medical history to include: Asthma, diabetes, GERD, kidney stones, osteoporosis Social history: lives with her. Patient smoked for about 17 years stopped about 40 years ago. No alcohol Family history: Reviewed, noncontributory to presentation Physical examination: VITAL SIGNS: 97.8, 81, 16, 122/72, 94% on 2 L GENERAL: Reclining in bed, tired, short of breath. EYES: Pupils equal. Conjunctiva pale. NECK: JVD not raised; masses not palpable. HEART: First and second heart sounds are normal; no edema. LUNGS: Respiratory rate increased, decreased sounds on the right side ABDOMEN: Soft, nontender, liver spleen not palpable, no masses palpable. PSYCH: [Alert and oriented x3; mood and affect tired INVESTIGATIONS, reviewed in the clinical context: WBC 8.6 hemoglobin 14 platelets 345 potassium 4.5 bun 26 creatinine 1.15 Coronavirus [PCR]-not detected EKG tracing personally reviewed by me-normal sinus rhythm with some nonspecific changes Chest x-ray film personally reviewed by me-appears to be right upper lobe mass. And right-sided pleural effusion Assessment and plan: -Right upper lobe mass in a patient was an ex-smoker with decreased appetite and weight loss. Strongly suspicious for malignancy. -Large right pleural effusion. 7 50 mL of thoracentesis done. Cytology pending. -Hypothyroid, continue with Synthroid -Essential hypertension continue with Norvasc -Hyperlipidemia continue with Lipitor -DVT prophylaxis. Subcu Lovenox I would cytology. Follow with pulmonary. Discussed with the patient.
[2020-06-13] MEDS: SODIUM CHLORIDE 0.9% 1,000 ML IV SCH ×3 (04:43→22:16)
[2020-06-13] MEDS: LEVOTHYROXINE 100 MCG TAB PO SCH (05:36)
[2020-06-13 07:32] LABS: Glucose,Whole Blood 111 mg/dL (75-99)
[2020-06-13] MEDS: INSULIN ASPART (NovoLOG) 100 UNIT/ML VIAL SQ SCH ×4 (07:54→20:30)
[2020-06-13] MEDS: ENOXAPARIN 40 MG/0.4 ML SYRINGE SQ SCH (08:57)
[2020-06-13] MEDS: amLODIPine 10 MG TAB PO SCH (08:57)
[2020-06-13] MEDS ORDERED: FAMOTIDINE 20 MG TAB PO SCH (09:00)
[2020-06-13] MEDS: ACETAMINOPHEN TAB 500 MG TAB PO PRN ×2 (09:10→20:29)
[2020-06-13 11:58] LABS: Glucose,Whole Blood 128 mg/dL (75-99)
--- NOTE | 2020-06-13 12:44 | P.CONS ---
History of Present Illness - Reason for Consult Consult date: 06/13/20 Lung Mass Requesting physician: Quintin Judd - History of Present Illness Mrs. Xochilt solomon a patient was found to have a lobular mass in the supraclavicular low measuring 5.4 x 4.4 x 6.3 cm in size and neoplasm is highly suspected. At the same time, the patient have another 6 mm nodular focus in the left apex, apical scarring, a loculated right-sided effusion was present along with compressive atelectasis of the right lung base and there was enlarged mediastinal lymphadenopathy. She is status post thoracentesis Review of Systems ROS unobtainable: due to mental status Past Medical History Past Medical History: Asthma, Diabetes Mellitus, GERD/Reflux Additional Past Medical History / Comment(s): broke L knee cap, L hand,R foot, L shoulder, Multiple ribs, R hand, R foot, L wrist, Nose. Branden cataract. kidney stones. plates L wrist. osteoporosis. History of Any Multi-Drug Resistant Organisms: None Reported Past Surgical History: Cholecystectomy Past Anesthesia/Blood Transfusion Reactions: No Reported Reaction Past Psychological History: No Psychological Hx Reported Smoking Status: Former smoker Past Alcohol Use History: None Reported Past Drug Use History: None Reported Medications and Allergies Home Medications Medication Instructions Recorded Confirmed Type Atorvastatin [Lipitor] 20 mg PO HS 08/12/16 06/10/20 History Levothyroxine Sodium [Synthroid] 100 mcg PO DAILY 08/12/16 06/10/20 History amLODIPine [Norvasc] 10 mg PO DAILY 08/12/16 06/10/20 History Metoclopramide HCl [Reglan] 5 mg PO TID PRN 04/08/20 06/10/20 History Exenatide Microspheres [Bydureon 2 mg SQ CUMMINGS 06/10/20 06/10/20 History Pen] Famotidine 40 mg PO DAILY 06/10/20 06/10/20 History Pantoprazole Sodium 40 mg PO HS 06/10/20 06/10/20 History Sulfamethoxazole/Trimethoprim 1 tab PO BID 06/10/20 06/10/20 History [Bactrim DS 800-160 mg] Allergies Allergy/AdvReac Type Severity Reaction Status Date / Time No Known Allergies Allergy Verified 06/10/20 14:00 Physical Exam Vitals: Vital Signs Temp Pulse Resp BP Pulse Ox 06/13/20 07:41 97.7 F 73 16 135/71 98 06/13/20 02:10 97.6 F 74 18 142/70 91 L 06/12/20 19:45 81 16 06/12/20 19:32 98.4 F 78 16 129/68 93 L 06/12/20 14:00 97.8 F 81 16 122/72 94 L Intake and Output 06/12/20 06/13/20 06/13/20 22:59 06:59 14:59 Intake Total 400 200 Balance 400 200 Intake: Oral 400 200 Other: Voiding Method Toilet Toilet # Voids 2 3 - Constitutional General appearance: cooperative, no acute distress - EENT Eyes: EOMI ENT: hard of hearing, NA/AT - Respiratory Respiratory: bilateral: diminished, rhonchi - Cardiovascular Rhythm: regularly irregular - Gastrointestinal General gastrointestinal: soft - Integumentary Integumentary: pale - Neurologic inconsisent due to mental status - Musculoskeletal Musculoskeletal: generalized weakness - Psychiatric Alert x1-2 Results CBC & Chem 7: 06/13/20 12:47 06/13/20 12:47 Labs: Abnormal Lab Results - Last 24 Hours (Table) 06/12/20 06/13/20 06/13/20 Range/Units 17:03 07:23 11:50 POC Glucose (mg/dL) 182 H 111 H 128 H (75-99) mg/dL Microbiology - Last 24 Hours (Table) 06/11/20 12:00 Gram Stain - Preliminary Pleural Fluid Body Fluid Culture - Preliminary 06/11/20 12:30 Acid Fast Bacilli Smear - Final Pleural Fluid Acid Fast Bacilli Culture - Preliminary 06/10/20 14:35 Blood Culture - Preliminary Blood No Growth after [address] scan - chest: report reviewed Assessment and Plan Plan: Assessment and Recommendations: 1. Right Lobular Lung Mass and Loculated Pleural Effusion: - Status Post Thoracentesis await cytology - MRI Brain as she is alert x1-2 and concern for advanced disease - PET scan as outpatient - CT Chest Measures Lung Mass 5.4x4.4x6.3 Physician Attest: I have completed the full history and physical and agree with above dictation, dictated as a scribe
[2020-06-13 13:14] LABS: HCT 40.3 % (34.0-46.0); HGB 12.8 gm/dL (11.4-16.0); MCH 28.9 pg (25.0-35.0); MCHC 31.8 g/dL (31.0-37.0); MCV 90.9 fL (80.0-100.0); Platelet Count 321 k/uL (150-450); RBC 4.44 m/uL (3.80-5.40); RDW 13.5 % (11.5-15.5); WBC 7.6 k/uL (3.8-10.6)
[2020-06-13 13:22] LABS: ALT 17 U/L (4-34); AST 29 U/L (14-36); African American GFR (CKD) >90 (>60 ml/min/1.73 sqM); Albumin 3.3 g/dL (3.5-5.0); Albumin/Globulin Ratio 1.1; Alkaline Phosphatase 84 U/L (38-126); Anion Gap 7 mmol/L; Blood Urea Nitrogen 5 mg/dL (7-17); Calcium 8.9 mg/dL (8.4-10.2); Carbon Dioxide 27 mmol/L (22-30); Chloride 102 mmol/L (98-107); Globulin 2.9 g/dL; Glucose 138 mg/dL (74-99); Non-African American GFR(CKD) >90 (>60 ml/min/1.73 sqM); Sodium 136 mmol/L (137-145); Total Bilirubin 0.5 mg/dL (0.2-1.3); Total Protein 6.2 g/dL (6.3-8.2)
[2020-06-13 13:52] LABS: Band Neutrophils % 1 %; Basophils # (M) 0.08 k/uL (0-0.2); Eosinophils # (M) 0.23 k/uL (0-0.7); Lymphocytes # (M) 1.44 k/uL (1.0-4.8); Monocytes # (M) 0.46 k/uL (0-1.0); Myelocytes # (M) 0.08 k/uL (0); Myelocytes % 1 %; Neutrophils % (M) 70 %; Nucleated Red Blood Cells 0 /100 WBC (0-0); Total Cells Counted 200
[2020-06-13 13:53] LABS: Poikilocytosis (M) Present
--- NOTE | 2020-06-13 14:14 | P.PN ---
Subjective Progress Note Date: 06/13/20 Shortness of breath, lung mass, pleural effusion This is a 84-year-old female patient was admitted for some increased shortness of breath and generalized weakness. Note that the patient has been having this issue for quite some time. The patient a chest x-ray on outpatient basis that showed a right upper lobe mass. The patient was in a CAT scan of the was done on 06/07/2020 patient was found to have a lobular mass in the supraclavicular low measuring 5.4 x 4.4 x 6.3 cm in size and neoplasm is highly suspected. At the same time, the patient have another 6 mm nodular focus in the left apex, apical scarring, a loculated right-sided effusion was present along with compressive atelectasis of the right lung base and there was enlarged mediastinal lymphadenopathy. Upon further review, there is paratracheal lymphadenopathy to suspicious also for metastasis. Left lung was essentially clear. The pulmonary consultation was requested. There was a COVID 19 screening was done that was negative. Liver function test is within normal limits. BUN is 26 with a creatinine of 1.15.. The patient was hospitalized. The patient was further broad-spectrum antibiotics with initially Rocephin and Zithromax. The patient was taking Bactrim on outpatient basis. The patient is seen today 06/12/2020 in follow-up on the regular medical floor. She is currently sitting up in a chair at the bedside. Awake and alert in no acute distress. Maintaining O2 saturation in the 90s on 2 L/m per nasal cannula . Afebrile. Hemodynamically stable. She states she is breathing easier today compared to yesterday. She did undergo a right-sided thoracentesis by Dr. Rodriguez at which x-ray 750 mL of turbulent fluid was removed. Protein 3.8. LDH 745. Cultures and cytology pending. The patient does have a previous history of right-sided breast cancer with lumpectomy and radiation treatments followed by tamoxifen for 5 years that was diagnosed back in 2009. She is currently on antibiotics in the form of ceftriaxone and azithromycin. Anticoagulated with Lovenox. On 06/13/2020 patient seen in follow-up on medical surgical floor, her pleural fluid cytology results are still pending at this time, in the meantime clinically patient has remained stable, no worsening dyspnea she is on 2 L of oxygen pulse ox of 98%, no fever or chills, she does get very short of breath with exertion, no complaints of chest discomfort. Chest x-ray today. No fever or chills. She remains on IV fluids with 0.9 normal saline at a rate of 100 ML per hour, oral fluid cultures have shown no growth thus far. Oncology has seen the patient in consultation, and has ordered MRI of the brain for staging purposes. Objective - Vital Signs Vital signs: Vital Signs Temp 97.7 F 06/13/20 07:41 Pulse 73 06/13/20 07:41 Resp 16 06/13/20 07:41 BP 135/71 06/13/20 07:41 Pulse Ox 98 06/13/20 07:41 Intake & Output 06/12/20 06/13/20 06/13/20 18:59 06:59 18:59 Intake Total 200 400 200 Balance 200 400 200 Intake: Oral 200 400 200 Other: Voiding Method Toilet Toilet Toilet # Voids 2 3 - Exam GENERAL EXAM: Alert, pleasant, 84-year-old white female, comfortable in no noe arent distress. HEAD: Normocephalic/atraumatic. EYES: Normal reaction of pupils, equal size. Conjunctiva pink, sclera white. NOSE: Clear with pink turbinates. THROAT: No erythema or exudates. NECK: No masses, no JVD, no thyroid enlargement, no adenopathy. CHEST: No chest wall deformity. Symmetrical expansion. LUNGS: Equal air entry with diminished sounds at the bases CVS: Regular rate and rhythm, normal S1 and S2, no gallops, no murmurs, no rubs ABDOMEN: Soft, nontender. No hepatosplenomegaly, normal bowel sounds, no guarding or rigidity. EXTREMITIES: No clubbing, no edema, no cyanosis, 2+ pulses and upper and lower extremities. MUSCULOSKELETAL: Muscle strength and tone normal. SPINE: No scoliosis or deformity SKIN: No rashes CENTRAL NERVOUS SYSTEM: Alert and oriented -3. No focal deficits, tone is normal in all 4 extremities. PSYCHIATRIC: Alert and oriented -3. Appropriate affect. Intact judgment and insight. - Labs CBC & Chem 7: 06/13/20 12:47 06/13/20 12:47 Labs: Abnormal Lab Results - Last 24 Hours (Table) 06/12/20 06/13/20 06/13/20 Range/Units 17:03 07:23 11:50 Myelocytes # (Manual) (0) k/uL Sodium (137-145) mmol/L BUN (7-17) mg/dL Creatinine (0.52-1.04) mg/dL Glucose (74-99) mg/dL POC Glucose (mg/dL) 182 H 111 H 128 H (75-99) mg/dL Total Protein (6.3-8.2) g/dL Albumin (3.5-5.0) g/dL 06/13/20 06/13/20 Range/Units 12:47 12:47 Myelocytes # (Manual) 0.08 H (0) k/uL Sodium 136 L (137-145) mmol/L BUN 5 L (7-17) mg/dL Creatinine 0.47 L (0.52-1.04) mg/dL Glucose 138 H (74-99) mg/dL POC Glucose (mg/dL) (75-99) mg/dL Total Protein 6.2 L (6.3-8.2) g/dL Albumin 3.3 L (3.5-5.0) g/dL Microbiology - Last 24 Hours (Table) 06/11/20 12:00 Gram Stain - Preliminary Pleural Fluid Body Fluid Culture - Preliminary 06/11/20 12:30 Acid Fast Bacilli Smear - Final Pleural Fluid Acid Fast Bacilli Culture - Preliminary 06/10/20 14:35 Blood Culture - Preliminary Blood No Growth after 48 hours Assessment and Plan Plan: Assessment: 1 right upper lobe mass, lobulated,5.4 x 4.4 x 6.3 , involving the posterior/apical segment of the right upper lobe associated with a right-sided pleural effusion and right paratracheal lymphadenopathy and some atelectatic changes in the right lung base. Findings are highly suspicious for a primary bronchogenic carcinoma. Status post right-sided thoracentesis on 06/11/2020 with 750 ML's turbulent fluid removed. Cytology pending. 2 History of right-sided breast cancer status post lumpectomy and radiation treatments in 2009, completed a 5 year course of tamoxifen 3 diabetes mellitus 4 history of kidney stones 5 osteoarthritis 6 osteoporosis 7 history of kidney stones Plan: Still awaiting results of the pleural fluid cytology, pleural fluid cultures remain negative, vital signs have been stable, no worsening dyspnea, no fever or chills, discussed with the patient possibility of bronchoscopy with biopsies of the right upper lobe mass, and the patient and her daughter are agreeable to proceed, we'll put the patient on schedule for tomorrow, nothing by mouth after midnight. I performed a history & physical examination of the patient and discussed their management with my nurse practitioner, Aixa Riley. I reviewed the nurse practitioner's note and agree with the documented findings and plan of care. Lung sounds are positive for diminished breath sounds at the bases. The findings and the impression was discussed with the patient. I attest to the documentation by the nurse practitioner. Time with Patient: Less than 30
--- NOTE | 2020-06-13 15:43 | MR ---
EXAMINATION TYPE: MR brain wo/w con DATE OF EXAM: 06/13/2020 COMPARISON: None HISTORY: Shortness of breath, abnormal chest xray, Assess for metastatic disease CONTRAST: Performed utilizing 6 mL intravenous Gadavist gadolinium contrast. TECHNIQUE: Multiplanar, multiecho imaging on a 3.0 Manasa magnet is performed through the brain. Stud y is performed within 24 hours of arrival to the hospital. The craniovertebral junction is normal. The pituitary is normal. Diffusion-weighted imaging is performed. No abnormal hyperintensity is present to suggest an acute i ntracranial infarct or acute ischemic change. There are scattered punctate areas of hyperintensity on T2 and Inversion Recovery weighted sequences which are non-specific but can be related to microvascular ischemic changes. Ventricles and sulci are mildly prominent for the patient age. IMPRESSIONS: 1. Nonspecific scattered chronic appearing periventricular white matter changes with atrophy. 2. No suspicious changes to suggest intracranial metastatic disease
[2020-06-13] MEDS: AZITHROMYCIN 500 MG TAB PO SCH (17:44)
[2020-06-13 20:17] LABS: Glucose,Whole Blood 181 mg/dL (75-99)
[2020-06-13] MEDS: PANTOPRAZOLE 40 MG TABLET PO SCH (20:29)
[2020-06-13] MEDS: ATORVASTATIN 20 MG TAB PO SCH (20:29)
[2020-06-14 05:47] LABS: Cancer Antigen 153 15.1 U/mL (0.0-32.3)
[2020-06-14] MEDS: LEVOTHYROXINE 100 MCG TAB PO SCH (06:25)
[2020-06-14] MEDS: ENOXAPARIN 40 MG/0.4 ML SYRINGE SQ SCH (06:57)
[2020-06-14] MEDS: amLODIPine 10 MG TAB PO SCH (06:57)
[2020-06-14] MEDS: FAMOTIDINE 20 MG TAB PO SCH ×2 (06:57→15:49)
[2020-06-14 07:03] LABS: Glucose,Whole Blood 119 mg/dL (75-99)
[2020-06-14] MEDS: INSULIN ASPART (NovoLOG) 100 UNIT/ML VIAL SQ SCH ×4 (07:35→21:07)
[2020-06-14 11:10] LABS: Glucose,Whole Blood 117 mg/dL (75-99)
[2020-06-14] MEDS ORDERED: RX INFO: IV CONTRAST WAS GIVEN 1 EACH MISC MISCELLANE PRN (11:13)
--- NOTE | 2020-06-14 11:14 | P.PN ---
Subjective Progress Note Date: 06/14/20 This is a 84-year-old female patient was admitted for some increased shortness of breath and generalized weakness. Note that the patient has been having this issue for quite some time. The patient a chest x-ray on outpatient basis that showed a right upper lobe mass. The patient was in a CAT scan of the was done on 06/07/2020 patient was found to have a lobular mass in the supraclavicular low measuring 5.4 x 4.4 x 6.3 cm in size and neoplasm is highly suspected. At the same time, the patient have another 6 mm nodular focus in the left apex, apical scarring, a loculated right-sided effusion was present along with compressive atelectasis of the right lung base and there was enlarged mediastinal lymphadenopathy. Upon further review, there is paratracheal lymphadenopathy to suspicious also for metastasis. Left lung was essentially clear. The pulmonary consultation was requested. There was a COVID 19 screening was done that was negative. Liver function test is within normal limits. BUN is 26 with a creatinine of 1.15.. The patient was hospitalized. The patient was further broad-spectrum antibiotics with initially Rocephin and Zithromax. The patient was taking Bactrim on outpatient basis. The patient is seen today 06/12/2020 in follow-up on the regular medical floor. She is currently sitting up in a chair at the bedside. Awake and alert in no acute distress. Maintaining O2 saturation in the 90s on 2 L/m per nasal cannula. Afebrile. Hemodynamically stable. She states she is breathing easier today compared to yesterday. She did undergo a right-sided thoracentesis by Dr. Rodriguez at which x-ray 750 mL of turbulent fluid was removed. Protein 3.8. LDH 745. Cultures and cytology pending. The patient does have a previous history of right-sided breast cancer with lumpectomy and radiation treatments followed by tamoxifen for 5 years that was diagnosed back in 2009. She is currently on antibiotics in the form of ceftriaxone and azithromycin. Anticoagulated with Lovenox. On 06/13/2020 patient seen in follow-up on medical surgical floor, her pleural fluid cytology results are still pending at this time, in the meantime clinically patient has remained stable, no worsening dyspnea she is on 2 L of oxygen pulse ox of 98%, no fever or chills, she does get very short of breath with exertion, no complaints of chest discomfort. Chest x-ray today. No fever or chills. She remains on IV fluids with 0.9 normal saline at a rate of 100 ML per hour, oral fluid cultures have shown no growth thus far. Oncology has seen the patient in consultation, and has ordered MRI of the brain for staging purposes. 06/14/2020, were still awaiting the pleural fluid cytology. The patient is currently nothing by mouth and if the pleural fluid cytology is negative, clue going to proceed with left upper lobe bronchoscopy and right lung biopsy. The patient has no specific complaints. The patient's overall breathing is improved compared to yesterday. Her Lovenox is currently on hold. She is on IV fluids at 50 mL/hr Objective - Vital Signs Vital signs: Vital Signs Temp 98.2 F 06/14/20 08:17 Pulse 75 06/14/20 08:17 Resp 20 06/14/20 08:17 BP 132/67 06/14/20 08:17 Pulse Ox 94 L 06/14/20 08:17 Intake & Output 06/13/20 06/14/20 06/14/20 18:59 06:59 18:59 Intake Total 200 1000 Balance 200 1000 Intake: Intake, IV Titration 600 Amount Sodium Chloride 0.9% 1, 600 000 ml @ 50 mls/hr IV . Q20H [facility] Rx#:[id number] Oral 200 400 Other: Voiding Method Toilet Toilet Toilet # Voids 3 - Exam GENERAL EXAM: Alert, pleasant, 84-year-old white female, comfortable in no apparent distress. HEAD: Normocephalic/atraumatic. EYES: Normal reaction of pupils, equal size. Conjunctiva pink, sclera white. NOSE: Clear with pink turbinates. THROAT: No erythema or exudates. NECK: No masses, no JVD, no thyroid enlargement, no adenopathy. CHEST: No chest wall deformity. Symmetrical expansion. LUNGS: Equal air entry with diminished sounds at the bases CVS: Regular rate and rhythm, normal S1 and S2, no gallops, no murmurs, no rubs ABDOMEN: Soft, nontender. No hepatosplenomegaly, normal bowel sounds, no guarding or rigidity. EXTREMITIES: No clubbing, no edema, no cyanosis, 2+ pulses and upper and lower extremities. MUSCULOSKELETAL: Muscle strength and tone normal. SPINE: No scoliosis or deformity SKIN: No rashes CENTRAL NERVOUS SYSTEM: Alert and oriented -3. No focal deficits, tone is normal in all 4 extremities. PSYCHIATRIC: Alert and oriented -3. Appropriate affect. Intact judgment and insight. - Labs CBC & Chem 7: 06/13/20 12:47 06/13/20 12:47 Labs: Abnormal Lab Results - Last 24 Hours (Table) 06/13/20 06/13/20 06/13/20 Range/Units 11:50 12:47 12:47 Myelocytes # (Manual) 0.08 H (0) k/uL Sodium 136 L (137-145) mmol/L BUN 5 L (7-17) mg/dL Creatinine 0.47 L (0.52-1.04) mg/dL Glucose 138 H (74-99) mg/dL POC Glucose (mg/dL) 128 H (75-99) mg/dL Total Protein 6.2 L (6.3-8.2) g/dL Albumin 3.3 L (3.5-5.0) g/dL 06/13/20 06/14/20 Range/Units 20:15 07:01 Myelocytes # (Manual) (0) k/uL Sodium (137-145) mmol/L BUN (7-17) mg/dL Creatinine (0.52-1.04) mg/dL Glucose (74-99) mg/dL POC Glucose (mg/dL) 181 H 119 H (75-99) mg/dL Total Protein (6.3-8.2) g/dL Albumin (3.5-5.0) g/dL Microbiology - Last 24 Hours (Table) 06/11/20 12:00 Gram Stain - Preliminary Pleural Fluid Body Fluid Culture - Preliminary 06/10/20 14:35 Blood Culture - Preliminary Blood No Growth after 72 hours Assessment and Plan Plan: 1 right upper lobe mass, lobulated,5.4 x 4.4 x 6.3 , involving the posterior/apical segment of the right upper lobe associated with a right-sided pleural effusion and right paratracheal lymphadenopathy and some atelectatic changes in the right lung base. Findings are highly suspicious for a primary bronchogenic carcinoma. Status post right-sided thoracentesis on 06/11/2020 with 750 ML's turbulent fluid removed. Cytology pending. 2 History of right-sided breast cancer status post lumpectomy and radiation treatments in 2010, completed a 5 year course of tamoxifen 3 diabetes mellitus 4 history of kidney stones 5 osteoarthritis 6 osteoporosis 7 history of kidney stones Plan: Keep the patient nothing by mouth pending pleural fluid cytology. If negative, we'll going to proceed with a bronchoscopy. 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 Based on this, I'm going to proceed with a bronchoscopy and a biopsy.. This will be under navigational guidance.
[2020-06-14] MEDS ORDERED: IV FLUID CONTINUATION 1,000 ML IV ONE (12:53)
--- NOTE | 2020-06-14 13:27 | CT ---
EXAMINATION TYPE: CT Chest wo geovany Bautista Protocol DATE OF EXAM: 06/14/2020 COMPARISON: 06/07/2020 HISTORY: GASPER [facility]AK[facility] protocol CT DLP: [address] of the chest was performed with lung and mediastinal window settings submitted. The la ck of contrast limits evaluation of the vascular, mediastinal and parenchymal structures including th e upper abdomen. LUNGS: There is a right upper lobe mass measuring 5.1 x 5.6 cm. There is adjacent focal calcification . Pleural-based mass is noted within the right upper lobe as well laterally measuring 3.8 x 1.3 cm. L arge loculated right-sided pleural effusion is redemonstrated. Right lower lobe compressive atelectas is or infiltrate. 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 The left lung is clear. MEDIASTINUM/AMBER: Thoracic aorta is of normal caliber with limited evaluation given lack of contrast . The heart is not enlarged. No evidence for mediastinal mass. No lymph nodes greater than 1cm. UPPER ABDOMEN: No significant abnormality is seen. OTHER: No significant other abnormality. IMPRESSION: 1. Mass density right upper lobe redemonstrated. Additional pleural-based masslike density right upp er lobe may reflect increased attenuation within a loculated pleural effusion versus additional mass. 2. Loculated pleural effusion redemonstrated. Right lower lobe atelectasis and/or infiltrate.
[2020-06-14] MEDS ORDERED: SUCCINYLCHOLINE CHLORIDE 100 MG/5 ML SYR IV ONE (13:43)
[2020-06-14] MEDS ORDERED: fentaNYL (PF) 50 MCG/ML 2 ML AMP ONE (13:43)
[2020-06-14] MEDS ORDERED: LIDOCAINE 1% INJ 10MG/ML (20 ML MDV) ONE (13:43)
[2020-06-14] MEDS ORDERED: PROPOFOL 10 MG/ML 20 ML VIAL IV ONE (13:43)
--- NOTE | 2020-06-14 14:21 | P.PCN ---
Date of Procedure: 06/14/20 Preoperative Diagnosis: Right upper lobe mass Postoperative Diagnosis: Right upper lobe mass Procedure(s) Performed: 1 flexible bronchoscopy with medication guidance 2 transbronchial biopsy of the right upper lobe 3 transbronchial brushings of the right upper lobe 4 BAL of the right upper lobe Anesthesia: STEPH Surgeon: Pete Rodriguez Estimated Blood Loss (ml): 0 Pathology: other Condition: stable Disposition: floor Operative Findings: The procedure was done in the endoscopy room. Preoperatively, the patient underwent a computed tomography scan of the chest using the [facility] protocol. The appropriate Vpads (a total of 6) was applied to the patient's chest. The patient was brought to the endoscopy suite where the patient was intubated and placed on a mechanical ventilator. As for the CAT scan images, there were uploaded into the [facility] navigational system with appropriate mapping and the measurements were done and all of this information was uploaded into the [facility]. After the patient being intubated and mechanically ventilated, the procedure was initiated. Note that the intubation process was not by [employer] DYER 75. The flexible bronchoscope was introduced through the orotracheal tube with Viviana in the lower trachea. The tip of the endotracheal tube was seen about 2 cm above the sarika. Examination of right mainstem bronchus was within normal limits. Left mainstem bronchus was within normal limits. Examination of the left side included the left upper lobe bronchus and the left lower lobe bronchus and the various times segments of the left lung and they were all within normal limits. The bronchoscope was then moved to the right side. Bronchus intermedius was extrinsically compressed and was quite tortuous. I was able to press the bronchoscope. Right middle lobe and the right lower lobe. Bronchoscope was removed. The right upper lobe and a 3 different segments of the right upper lobe was seen and visualized. The posterior segment of the right upper lobe had only 2 sessions. Using navigational guidance, transbronchial biopsies of the of the right upper lobe mass was done with multiple biopsies of the right upper lobe posterior segment was done under navigational guidance. Transbronchial brushings of the right upper lobe mass was done. At the completion of the procedure, total of 60 mL of saline was infused in the right upper lobe posterior segment and 20 ccwas suctioned back. Respiratory was minimally bloody. No complications. Therapeutic it was suctioning was done. Bronchoscope was removed. Patient was extubated and then transferred to recovery in stable condition. Chest x-rays to be done to rule out pneumothorax.
--- NOTE | 2020-06-14 15:03 | XR ---
EXAMINATION TYPE: XR chest 1V DATE OF EXAM: 06/14/2020 COMPARISON: 06/11/2020 HISTORY: Postthoracentesis TECHNIQUE: Single frontal view of the chest is obtained. FINDINGS: Right-sided consolidation and pleural effusion. No pneumothorax. Diffuse interstitial eyal melissa. Heart size normal. Deformity of the left humerus seen with diffuse osteopenia. Chronic rib cage deformities are seen on the right. Atherosclerotic change aorta. Right upper lung mass noted and stab le. IMPRESSION: 1. Right-sided consolidation and pleural effusion increased from prior exam. Right upper lobe mass ag ain noted.
--- NOTE | 2020-06-14 15:28 | P.PN ---
Subjective Progress Note Date: 06/14/20 Principal diagnosis: mass Fluid cytology positive for adenocarcoma, bronch with tissue biopsy for more definitive diagnosis. Objective - Vital Signs Vital signs: Vital Signs Temp 98.2 F 06/14/20 12:54 Pulse 88 06/14/20 15:01 Resp 16 06/14/20 15:01 BP 182/78 06/14/20 15:01 Pulse Ox 94 L 06/14/20 15:01 Intake & Output 06/13/20 06/14/20 06/14/20 18:59 06:59 18:59 Intake Total 200 1000 500 Balance 200 1000 500 Weight 58.513 kg Intake: IV 500 Intake, IV Titration 600 Amount Sodium Chloride 0.9% 1, 600 000 ml @ 50 mls/hr IV . Q20H [facility] Rx#:[id number] Oral 200 400 Other: Voiding Method Toilet Toilet Toilet # Voids 3 - Exam - Constitutional General appearance: cooperative, no acute distress - EENT Eyes: EOMI ENT: hard of hearing, NA/AT - Respiratory Respiratory: bilateral: diminished, rhonchi - Cardiovascular Rhythm: regularly irregular - Gastrointestinal General gastrointestinal: soft - Integumentary Integumentary: pale - Neurologic inconsisent due to mental status - Musculoskeletal Musculoskeletal: generalized weakness - Psychiatric Alert x1-2 - Labs CBC & Chem 7: 06/13/20 12:47 06/13/20 12:47 Labs: Abnormal Lab Results - Last 24 Hours (Table) 06/13/20 06/14/20 06/14/20 Range/Units 20:15 07:01 11:06 POC Glucose (mg/dL) 181 H 119 H 117 H (75-99) mg/dL Microbiology - Last 24 Hours (Table) 06/11/20 12:00 Gram Stain - Preliminary Pleural Fluid Body Fluid Culture - Preliminary 06/10/20 14:35 Blood Culture - Preliminary Blood No Growth after 72 hours Assessment and Plan Plan: Assessment and Recommendations: 1. Right Lobular Lung Mass and Loculated Pleural Effusion: - Status Post Thoracentesis await cytology - MRI Brain negative for metastatic disease - PET scan as outpatient - CT Chest Measures Lung Mass 5.4x4.4x6.3 = Status POst RUL lung mass biopsy per pulm - Await pathology for further recs
[2020-06-14] MEDS: ACETAMINOPHEN TAB 500 MG TAB PO PRN ×2 (15:50→21:05)
--- NOTE | 2020-06-14 16:23 | P.PN ---
Subjective Progress Note Date: 06/13/20 Principal diagnosis: Large right pleural effusion. Ms. Lemon is an 84-year-old female with a past medical history of diabetes mellitus, GERD, osteoarthritis, nephrolithiasis who presented frankly shortness of breath for one week. Patient had a chest x-ray as outpatient showing right upper lobe mass so she had a CAT scan done on 06/07 showing lobular mass in the supraclavicular area which is highly suspicious for neoplasm. She also had 6 mm nodular focus in the left apex, with apical scarring and a loculated right-sided pleural effusion along with enlarged mediastinal lymphadenopathy. Patient had thoracentesis done with 600 mL out. She was started on ceftriaxone and Z ithromax and admitted for further management. On 06/13/2020- patient was seen and examined at the bedside. Her daughter is at the bedside. She states that her breathing is much better after thoracentesis. She denies having any chest pain or palpitations. No abdominal pain nausea vomiting or diarrhea. No fevers chills or rigors. She denies having any dysuria or hematuria. On reviewing her vitals temperature 97.7, heart rate 94, respiratory rate 18, blood pressure 1 29 x 74, saturating at 94% on 2 L of oxygen. Last from this morning showing sodium 136, but patient 4, chloride 102, bicarbonate 27, BUN 5, creatinine 0.47. White count of 7.6, hemoglobin 12.8, platelets 321. Active Medications Acetaminophen (Acetaminophen Tab 500 Mg Tab) 500 mg PO Q6HR PRN PRN Reason: Fever and/ or Pain Last Admin: 06/13/20 20:29 Dose: 500 mg Documented by: Amlodipine Besylate (Amlodipine 10 Mg Tab) 10 mg PO DAILY [facility] Last Admin: 06/13/20 08:57 Dose: 10 mg Documented by: Atorvastatin Calcium (Atorvastatin 20 Mg Tab) 20 mg PO HS [facility] Last Admin: 06/13/20 20:29 Dose: 20 mg Documented by: Azithromycin (Azithromycin 500 Mg Tab) 500 mg PO DAILY@1600 [facility] Stop: 06/15/20 16:01 Last Admin: 06/13/20 17:44 Dose: 500 mg Documented by: Enoxaparin Sodium (Enoxaparin 40 Mg/0.4 Ml Syringe) 40 mg SQ DAILY [facility] Last Admin: 06/13/20 08:57 Dose: 40 mg Documented by: Famotidine (Famotidine 20 Mg Tab) 40 mg PO DAILY [facility] Sodium Chloride (Saline 0.9%) 1,000 mls @ 50 mls/hr IV .Q20H [facility] Last Admin: 06/13/20 22:16 Dose: Not Given Documented by: Insulin Aspart (Insulin Aspart (Novolog) 100 Unit/Ml Vial) 0 unit SQ ACHS [facility]; Protocol Last Admin: 06/13/20 20:30 Dose: 2 unit Documented by: Levothyroxine Sodium (Levothyroxine 100 Mcg Tab) 100 mcg PO DAILY@0630 [facility] Last Admin: 06/13/20 05:36 Dose: 100 mcg Documented by: Metoclopramide HCl (Metoclopramide 5 Mg Tab) 5 mg PO TID PRN PRN Reason: Nausea Miscellaneous Information (Pneumonia Protocol Utilized 1 Each Misc) 1 each PO ONCE PRN PRN Reason: Per Protocol Pantoprazole Sodium (Pantoprazole 40 Mg Tablet) 40 mg PO HS [facility] Last Admin: 06/13/20 20:29 Dose: 40 mg Documented by: Objective - Vital Signs Vital signs: Vital Signs Temp 97.7 F 06/13/20 07:41 Pulse 73 06/13/20 07:41 Resp 16 06/13/20 07:41 BP 135/71 06/13/20 07:41 Pulse Ox 98 06/13/20 07:41 Intake & Output 06/12/20 06/13/20 06/13/20 18:59 06:59 18:59 Intake Total 200 400 200 Balance 200 400 200 Intake: Oral 200 400 200 Other: Voiding Method Toilet Toilet Toilet # Voids 2 3 - Exam Physical examination: GENERAL: Lying in bed appears to be in no acute distress. Daughter at bedside. EYES: Pupils equal. Conjunctiva pale. NECK: JVD not raised; masses not palpable. HEART: First and second heart sounds are normal; no edema. LUNGS: Bilateral breath sounds are positive. Decreased breath sounds on the right lower lobe. ABDOMEN: Soft, nontender, liver spleen not palpable, no masses palpable. PSYCH: Alert and oriented x3; mood and affect tired DELIVERY DRIVER: No focal neurological deficits on gross exam - Labs CBC & Chem 7: 06/13/20 12:47 06/13/20 12:47 Labs: Abnormal Lab Results - Last 24 Hours (Table) 06/12/20 06/13/20 06/13/20 Range/Units 17:03 07:23 11:50 Myelocytes # (Manual) (0) k/uL Sodium (137-145) mmol/L BUN (7-17) mg/dL Creatinine (0.52-1.04) mg/dL Glucose (74-99) mg/dL POC Glucose (mg/dL) 182 H 111 H 128 H (75-99) mg/dL Total Protein (6.3-8.2) g/dL Albumin (3.5-5.0) g/dL 06/13/20 06/13/20 Range/Units 12:47 12:47 Myelocytes # (Manual) 0.08 H (0) k/uL Sodium 136 L (137-145) mmol/L BUN 5 L (7-17) mg/dL Creatinine 0.47 L (0.52-1.04) mg/dL Glucose 138 H (74-99) mg/dL POC Glucose (mg/dL) (75-99) mg/dL Total Protein 6.2 L (6.3-8.2) g/dL Albumin 3.3 L (3.5-5.0) g/dL Microbiology - Last 24 Hours (Table) 06/11/20 12:00 Gram Stain - Preliminary Pleural Fluid Body Fluid Culture - Preliminary 06/11/20 12:30 Acid Fast Bacilli Smear - Final Pleural Fluid Acid Fast Bacilli Culture - Preliminary 06/10/20 14:35 Blood Culture - Preliminary Blood No Growth after 48 hours Assessment and Plan Assessment: ASSESSMENT Right upper lobe mass Right-sided pleural effusion status post thoracentesis- 750 mL removed Type 2 diabetes mellitus Osteoarthritis multiple joints History of right-sided breast cancer status post lumpectomy and radiation therapy in 2009 Nephrolithiasis Osteoporosis PLAN: Patient's breathing status has improved after thoracentesis. She is re quiring 2 L of oxygen to maintain saturations above 90%. Continue antibodies in the form of ceftriaxone and Zithromax. Pleural fluid cytology pending. Pulmonary on board and following the patient closely. Further admonitions depending on the progress of the patient. Treatment plan was discussed in detail with the patient's daughter at bedside.
[2020-06-14 16:30] LABS: Appearance,BF Blood Tinged; Color,BF Pink; Nucleated Cells, Body Fluid 6 /uL; RBC, Body Fluid 4310 /uL
[2020-06-14 16:50] LABS: Glucose,Whole Blood 137 mg/dL (75-99)
[2020-06-14] MEDS: AZITHROMYCIN 500 MG TAB PO SCH (17:48)
[2020-06-14 20:38] LABS: Glucose,Whole Blood 120 mg/dL (75-99)
[2020-06-14] MEDS: SODIUM CHLORIDE 0.9% 1,000 ML IV SCH (21:05)
[2020-06-14] MEDS: ATORVASTATIN 20 MG TAB PO SCH (21:06)
[2020-06-14] MEDS: PANTOPRAZOLE 40 MG TABLET PO SCH (21:06)
[2020-06-15] MEDS: LEVOTHYROXINE 100 MCG TAB PO SCH (06:28)
[2020-06-15 07:02] LABS: Glucose,Whole Blood 105 mg/dL (75-99)
[2020-06-15] MEDS: INSULIN ASPART (NovoLOG) 100 UNIT/ML VIAL SQ SCH ×2 (08:04→12:37)
[2020-06-15] MEDS: FAMOTIDINE 20 MG TAB PO SCH (08:06)
[2020-06-15] MEDS: amLODIPine 10 MG TAB PO SCH (08:06)
[2020-06-15 08:10] VITALS: RESP 18
--- NOTE | 2020-06-15 11:37 | P.PN ---
Subjective Progress Note Date: 06/15/20 This is a 84-year-old female patient was admitted for some increased shortness of breath and generalized weakness. Note that the patient has been having this issue for quite some time. The patient a chest x-ray on outpatient basis that showed a right upper lobe mass. The patient was in a CAT scan of the was done on 06/07/2020 patient was found to have a lobular mass in the supraclavicular low measuring 5.4 x 4.4 x 6.3 cm in size and neoplasm is highly suspected. At the same time, the patient have another 6 mm nodular focus in the left apex, apical scarring, a loculated right-sided effusion was present along with compressive atelectasis of the right lung base and there was enlarged mediastinal lymphadenopathy. Upon further review, there is paratracheal lymphadenopathy to suspicious also for metastasis. Left lung was essentially clear. The pulmonary consultation was requested. There was a COVID 19 screening was done that was negative. Liver function test is within normal limits. BUN is 26 with a creatinine of 1.15.. The patient was hospitalized. The patient was further broad-spectrum antibiotics with initially Rocephin and Zithromax. The patient was taking Bactrim on outpatient basis. The patient is seen today 06/12/2020 in follow-up on the regular medical floor. She is currently sitting up in a chair at the bedside. Awake and alert in no acute distress. Maintaining O2 saturation in the 90s on 2 L/m per nasal cannula. Afebrile. Hemodynamically stable. She states she is breathing easier today compared to yesterday. She did undergo a right-sided thoracentesis by Dr. Rodriguez at which x-ray 750 mL of turbulent fluid was removed. Protein 3.8. LDH 745. Cultures and cytology pending. The patient does have a previous history of right-sided breast cancer with lumpectomy and radiation treatments followed by tamoxifen for 5 years that was diagnosed back in 2009. She is currently on antibiotics in the form of ceftriaxone and azithromycin. Anticoagulated with Lovenox. On 06/13/2020 patient seen in follow-up on medical surgical floor, her pleural fluid cytology results are still pending at this time, in the meantime clinically patient has remained stable, no worsening dyspnea she is on 2 L of oxygen pulse ox of 98%, no fever or chills, she does get very short of breath with exertion, no complaints of chest discomfort. Chest x-ray today. No fever or chills. She remains on IV fluids with 0.9 normal saline at a rate of 100 ML per hour, oral fluid cultures have shown no growth thus far. Oncology has seen the patient in consultation, and has ordered MRI of the brain for staging purposes. 06/14/2020, were still awaiting the pleural fluid cytology. The patient is currently nothing by mouth and if the pleural fluid cytology is negative, clue going to proceed with left upper lobe bronchoscopy and right lung biopsy. The patient has no specific complaints. The patient's overall breathing is improved compared to yesterday. Her Lovenox is currently on hold. She is on IV fluids at 50 mL/hr 06/15/2020, the patient is post bronchoscopy. Patient is doing well and the patient is on room air oxygen and ambulating and she is around 93%. Oncology is on the case. Chest monitor biopsy of the right upper lobe mass was done. 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 Unable to tell if it's of a lung versus breast primary because of limited of the sample size. The patient has had an MRI of the brain that showed no evidence of any metastases. It showed PERSONAL CHEF atrophy. Oncology is on the case. Objective - Vital Signs Vital signs: Vital Signs Temp 98.3 F 06/15/20 08:10 Pulse 76 06/15/20 08:10 Resp 18 06/15/20 08:10 BP 134/67 06/15/20 08:10 Pulse Ox 96 06/15/20 08:10 Intake & Output 06/14/20 06/15/20 06/15/20 18:59 06:59 18:59 Intake Total 500 Balance 500 Weight 58.513 kg Intake: IV 500 Other: Voiding Method Toilet Toilet Toilet # Voids 2 2 1 # Bowel Movements 1 - Exam GENERAL EXAM: Alert, pleasant, 84-year-old white female, comfortable in no apparent distress. HEAD: Normocephalic/atraumatic. EYES: Normal reaction of pupils, equal size. Conjunctiva pink, sclera white. NOSE: Clear with pink turbinates. THROAT: No erythema or exudates. NECK: No masses, no JVD, no thyroid enlargement, no adenopathy. CHEST: No chest wall deformity. Symmetrical expansion. LUNGS: Equal air entry with diminished sounds at the bases CVS: Regular rate and rhythm, normal S1 and S2, no gallops, no murmurs, no rubs ABDOMEN: Soft, nontender. No hepatosplenomegaly, normal bowel sounds, no guarding or rigidity. EXTREMITIES: No clubbing, no edema, no cyanosis, 2+ pulses and upper and lower extremities. MUSCULOSKELETAL: Muscle strength and tone normal. SPINE: No scoliosis or deformity SKIN: No rashes CENTRAL NERVOUS SYSTEM: Alert and oriented -3. No focal deficits, tone is normal in all 4 extremities. PSYCHIATRIC: Alert and oriented -3. Appropriate affect. Intact judgment and insight. - Labs CBC & Chem 7: 06/13/20 12:47 06/13/20 12:47 Labs: Abnormal Lab Results - Last 24 Hours (Table) 06/14/20 06/14/20 06/15/20 Range/Units 16:48 20:35 07:01 POC Glucose (mg/dL) 137 H 120 H 105 H (75-99) mg/dL Microbiology - Last 24 Hours (Table) 06/14/20 14:00 Gram Stain - Preliminary Bronchial Washings - Right Bronchial Washings Culture - Preliminary 06/10/20 14:35 Blood Culture - Preliminary Blood No Growth after 96 hours Assessment and Plan Plan: 1 right upper lobe mass, lobulated,5.4 x 4.4 x 6.3 , involving the posterior/apical segment of the right upper lobe associated with a right-sided pleural effusion and right paratracheal lymphadenopathy and some atelectatic changes in the right lung base. Findings are highly suspicious for a primary b ronchogenic carcinoma. Status post right-sided thoracentesis on 06/11/2020 with 750 ML's turbulent fluid removed. 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 Transbronchial biopsy of the right upper lobe was done. 2 History of right-sided breast cancer status post lumpectomy and radiation treatments in 2009, completed a 5 year course of tamoxifen 3 diabetes mellitus 4 history of kidney stones 5 osteoarthritis 6 osteoporosis 7 history of kidney stones Plan: Patient is post bronchoscopy. I was able to contact the pathologist and after discussion, was made aware that the pleural fluid cytology was positive for adenocarcinoma which could be breast versus lung and the final decision could not be made short of limited material. Bronchoscopy was done. Biopsy results are still pending. Meanwhile, the patient can be released home to be followed up on outpatient basis. MRI of the brain shows no evidence of any metastases. IV fluids can be cut down to KVO , possible discharge today.
[2020-06-15 11:45] LABS: Glucose,Whole Blood 134 mg/dL (75-99)
[2020-06-15 15:19] VITALS: BP 145/73; PULSE 87; TEMP 97.5
--- NOTE | 2020-06-17 02:00 | P.PN ---
Subjective Progress Note Date: 06/14/20 Principal diagnosis: Large right pleural effusion. Ms. Lemon is an 84-year-old female with a past medical history of diabetes mellitus, GERD, osteoarthritis, nephrolithiasis who presented frankly shortness of breath for one week. Patient had a chest x-ray as outpatient showing right upper lobe mass so she had a CAT scan done on 06/07 showing lobular mass in the supraclavicular area which is highly suspicious for neoplasm. She also had 6 mm nodular focus in the left apex, with apical scarring and a loculated right-sided pleural effusion along with enlarged mediastinal lymphadenopathy. Patient had thoracentesis done with 600 mL out. She was started on ceftriaxone and Z ithromax and admitted for further management. On 06/13/2020- patient was seen and examined at the bedside. Her daughter is at the bedside. She states that her breathing is much better after thoracentesis. She denies having any chest pain or palpitations. No abdominal pain nausea vomiting or diarrhea. No fevers chills or rigors. She denies having any dysuria or hematuria. On reviewing her vitals temperature 97.7, heart rate 94, respiratory rate 18, blood pressure 1 29 x 74, saturating at 94% on 2 L of oxygen. Last from this morning showing sodium 136, but patient 4, chloride 102, bicarbonate 27, BUN 5, creatinine 0.47. White count of 7.6, hemoglobin 12.8, platelets 321. On 06/14/2020 -patient was seen and examined at bedside. She is scheduled to go for a left upper lobe bronchoscopy and biopsy by Dr. Alonso this afternoon. She has no complaints. She denies having any fevers chills or rigors. No abdominal pain nausea vomiting or diarrhea. No dysuria or hematuria. No chest pain or palpitations. On reviewing the vitals temperature of 98.2, heart rate 75, respiratory 20, blood pressure 131 x 67 saturating at 94% on 2 L of oxygen. On reviewing the labs no new labs from this morning. All medications reviewed and pertinent changes made. Objective - Vital Signs Vital signs: Vital Signs Temp 98.2 F 06/14/20 08:17 Pulse 75 06/14/20 08:17 Resp 20 06/14/20 08:17 BP 132/67 06/14/20 08:17 Pulse Ox 94 L 06/14/20 08:17 Intake & Output 06/13/20 06/14/20 06/14/20 18:59 06:59 18:59 Intake Total 200 1000 Balance 200 1000 Intake: Intake, IV Titration 600 Amount Sodium Chloride 0.9% 1, 600 000 ml @ 50 mls/hr IV . Q20H [facility] Rx#:[id number] Oral 200 400 Other: Voiding Method Toilet Toilet Toilet # Voids 3 - Exam Physical examination: GENERAL: Lying in bed appears to be in no acute distress. EYES: Pupils equal. Conjunctiva pale. NECK: JVD not raised; masses not palpable. HEART: First and second heart sounds are normal; no edema. LUNGS: Bilateral breath sounds are positive. Decreased breath sounds on the right lower lobe. ABDOMEN: Soft, nontender, liver spleen not palpable, no masses palpable. PSYCH: Alert and oriented x3; mood and affect tired MEDICAL CARE MANAGER: No focal neurological deficits on gross exam - Labs CBC & Chem 7: 06/13/20 12:47 06/13/20 12:47 Labs: Abnormal Lab Results - Last 24 Hours (Table) 06/13/20 06/13/20 06/13/20 Range/Units 12:47 12:47 20:15 Myelocytes # (Manual) 0.08 H (0) k/uL Sodium 136 L (137-145) mmol/L BUN 5 L (7-17) mg/dL Creatinine 0.47 L (0.52-1.04) mg/dL Glucose 138 H (74-99) mg/dL POC Glucose (mg/dL) 181 H (75-99) mg/dL Total Protein 6.2 L (6.3-8.2) g/dL Albumin 3.3 L (3.5-5.0) g/dL 06/14/20 06/14/20 Range/Units 07:01 11:06 Myelocytes # (Manual) (0) k/uL Sodium (137-145) mmol/L BUN (7-17) mg/dL Creatinine (0.52-1.04) mg/dL Glucose (74-99) mg/dL POC Glucose (mg/dL) 119 H 117 H (75-99) mg/dL Total Protein (6.3-8.2) g/dL Albumin (3.5-5.0) g/dL Microbiology - Last 24 Hours (Table) 06/11/20 12:00 Gram Stain - Preliminary Pleural Fluid Body Fluid Culture - Preliminary 06/10/20 14:35 Blood Culture - Preliminary Blood No Growth after 72 hours Assessment and Plan Assessment: ASSESSMENT Right upper lobe mass Right-sided pleural effusion status post thoracentesis- 750 mL removed Type 2 diabetes mellitus Osteoarthritis multiple joints History of right-sided breast cancer status post lumpectomy and radiation therapy in 2009 Nephrolithiasis Osteoporosis PLAN: Patient's breathing status has improved after thoracentesis. She is requiring 2 L of oxygen to maintain saturations above 90%. Continue antibodies in the form of ceftriaxone and Zithromax. Pleural fluid cytology pending. Pulmonary Dr. Rodriguez taking her for a bronchoscopy and right lung biopsy this afternoon. . Further recommendations depending on the progress of the patient. Treatment plan was discussed in detail with the patient's daughter at bedside.
--- NOTE | 2020-06-17 02:11 | P.DS ---
Providers Date of admission: 06/10/20 16:05 Expected date of discharge: 06/15/20 Attending physician: Quintin Judd Consults: 06/10/20 16:05 Consult Physician Routine Consulting Provider: Pete Rodriguez Consult Reason/Comments: lung mass/pneumonia Do you want consulting provider notified?: Yes 06/12/20 11:12 Consult Physician Routine Consulting Provider: Michael Gil Consult Reason/Comments: lung mass/pending cytology Do you want consulting provider notified?: Yes Primary care physician: Aguilar Aj MD Hospital Course: HPI - Ms. Xochilt solomon a 84-year-old female patient was admitted for some increased shortness of breath and generalized weakness. The patient a chest x- ray on outpatient basis that showed a right upper lobe mass. The patient was in a CAT scan of the was done on 06/07/2020 patient was found to have a lobular mass in the supraclavicular low measuring 5.4 x 4.4 x 6.3 cm in size and neoplasm is highly suspected.She also has another 6 mm nodular focus in the left apex, apical scarring, a loculated right-sided effusion was present along with compressive atelectasis of the right lung base and there was enlarged mediastinal lymphadenopathy. There is paratracheal lymphadenopathy to have a suspicious for metastasis. Left lung was essentially clear. There was a COVID 19 screening was done that was negative. Liver function test is within normal limits. BUN is 26 with a creatinine of 1.15.. The patient was hospitalized. The patient was started on broad-spectrum antibiotics with initially Rocephin and Zithromax. The patient was taking Bactrim on outpatient basis. Hospital course - Patient had right-sided pleural effusion drained by 06/11/2020 and also had bronchoscopy with biopsy of the right upper lobe and biopsy of the right upper lobe 06/14/2020. Her Respiratory status improved after the drainage of right-sided pleural effusion. She completed her antibiotic course. Patient also had MRI of the brain that was negative for any metastasis. 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 She was cleared by pulmonary to be discharged home and to follow-up as outpatient with oncology and her PCP. Vital Signs Temp 98.3 F 06/15/20 08:10 Pulse 76 06/15/20 08:10 Resp 18 06/15/20 08:10 BP 134/67 06/15/20 08:10 Pulse Ox 96 06/15/20 08:10 Intake & Output 06/14/20 06/15/20 06/15/20 18:59 06:59 18:59 Intake Total 500 Balance 500 Weight 58.513 kg Intake: IV 500 Other: Voiding Method Toilet Toilet Toilet # Voids 2 2 1 # Bowel Movements 1 PHYSICAL EXAMINATION GENERAL: Lying in bed appears to be in no acute distress. EYES: Pupils equal. Conjunctiva pale. NECK: JVD not raised; masses not palpable. HEART: First and second heart sounds are normal; no edema. LUNGS: Bilateral breath sounds are positive. Decreased breath sounds on the right lower lobe. ABDOMEN: Soft, nontender, liver spleen not palpable, no masses palpable. PSYCH: Alert and oriented x3; mood and affect tired INFORMATION SCIENTIST: No focal neurological deficits on gross exam - Labs CBC & Chem 7: 06/13/20 12:47 06/13/20 12:47 Labs: Abnormal Lab Results - Last 24 Hours (Table) 06/14/20 06/14/20 06/15/20 Range/Units 16:48 20:35 07:01 POC Glucose (mg/dL) 137 H 120 H 105 H (75-99) mg/dL 06/15/20 Range/Units 11:44 POC Glucose (mg/dL) 134 H (75-99) mg/dL Microbiology - Last 24 Hours (Table) 06/14/20 14:00 Gram Stain - Preliminary Bronchial Washings - Right Bronchial Washings Culture - Preliminary 06/10/20 14:35 Blood Culture - Preliminary Blood No Growth after 96 hours DISCHARGE DIAGNOSIS Right upper lobe mass Right-sided pleural effusion status post thoracentesis- Cytology positive for Adenocarcinoma Type 2 diabetes mellitus Osteoarthritis multiple joints History of right-sided breast cancer status post lumpectomy and radiation therapy in 2009 Nephrolithiasis Osteoporosis Follow up -she is advised to follow-up with her PCP in 1 to 2 days. Also advised to follow-up with oncology and pulmonary, as her biopsy results are still pending. Discussed in detail with the patient's daughter at bedside. Patient's daughter got all the information that is needed for outpatient follow- up, appointments could not be done as it is a weekend. The patient is being discharged home. Patient Condition at Discharge: Fair Plan - Discharge Summary New Discharge Prescriptions: Continue amLODIPine [Norvasc] 10 mg PO DAILY Atorvastatin [Lipitor] 20 mg PO HS Levothyroxine Sodium [Synthroid] 100 mcg PO DAILY Metoclopramide HCl [Reglan] 5 mg PO TID PRN PRN Reason: Nausea Pantoprazole Sodium 40 mg PO HS Exenatide Microspheres [Bydureon Pen] 2 mg SQ [place] Famotidine 40 mg PO DAILY Discontinued Sulfamethoxazole/Trimethoprim [Bactrim DS 800-160 mg] 1 tab PO BID Discharge Medication List Atorvastatin [Lipitor] 20 mg PO HS 08/12/16 [History] Levothyroxine Sodium [Synthroid] 100 mcg PO DAILY 08/12/16 [History] amLODIPine [Norvasc] 10 mg PO DAILY 08/12/16 [History] Metoclopramide HCl [Reglan] 5 mg PO TID PRN 04/08/20 [History] Exenatide Microspheres [Bydureon Pen] 2 mg SQ [place] 06/10/20 [History] Famotidine 40 mg PO DAILY 06/10/20 [History] Pantoprazole Sodium 40 mg PO HS 06/10/20 [History] Follow up Appointment(s)/Referral(s): Aguilar Aj MD [Primary Care Provider] - 1-2 days Patient Instructions/Handouts: Pneumonia (DC) Discharge Disposition: HOME SELF-CARE
== END 2020-06-15 15:35 | disposition home or self-care (01) | DRG 167 ==
LOC: EC 13:52 → 5NMEDONC 16:05 → 4SSUR 19:26
PROVIDERS: ADMIT Hospitalist; ATTEND Hospitalist
PROC: 0W993ZX Drainage of Right Pleural Cavity, Percutaneous Approach, Diagnostic (ICD-10-PCS; 2020-06-11)
PROC: 0BBC8ZX Excision of Right Upper Lung Lobe, Via Natural or Artificial Opening Endoscopic, Diagnostic (ICD-10-PCS; principal; 2020-06-14 07:30)
PROC: 0B9C8ZX Drainage of Right Upper Lung Lobe, Via Natural or Artificial Opening Endoscopic, Diagnostic (ICD-10-PCS; principal; 2020-06-14 07:30)
PROC: 0BD48ZX Extraction of Right Upper Lobe Bronchus, Via Natural or Artificial Opening Endoscopic, Diagnostic (ICD-10-PCS; principal; 2020-06-14 07:30)
DX: C34.11 Malignant neoplasm of upper lobe, right bronchus or lung (principal); C34.01 Malignant neoplasm of right main bronchus; J91.0 Malignant pleural effusion; J98.11 Atelectasis; N39.0 Urinary tract infection, site not specified; Z87.891 Personal history of nicotine dependence; E03.9 Hypothyroidism, unspecified; E11.9 Type 2 diabetes mellitus without complications; E78.5 Hyperlipidemia, unspecified; I10 Essential (primary) hypertension; J45.909 Unspecified asthma, uncomplicated; K21.9 Gastro-esophageal reflux disease without esophagitis; M15.9 Polyosteoarthritis, unspecified; M81.0 Age-related osteoporosis without current pathological fracture; N20.0 Calculus of kidney; Z79.82 Long term (current) use of aspirin; Z79.890 Hormone replacement therapy; Z79.899 Other long term (current) drug therapy; Z20.822 Contact with and (suspected) exposure to COVID-19; Z85.3 Personal history of malignant neoplasm of breast; Z87.442 Personal history of urinary calculi; Z92.3 Personal history of irradiation; Z90.49 Acquired absence of other specified parts of digestive tract; Z98.42 Cataract extraction status, left eye; Z98.41 Cataract extraction status, right eye; R59.0 Localized enlarged lymph nodes; Z88.2 Allergy status to sulfonamides
CPT/HCPCS: 36415; 70553; 71045; 71046; 71250; 80053; 82945; 83605; 83615; 84157; 85025; 85610; 85730; 86300; 87040; 87070; 87102; 87116; 87205; 87206; 87252; 87496; 87498; 87502; 87529; 87634; 87635; 87798; 88104; 88108; 88305; 88341; 88342; 89050; 93005; 96361; 96365; 99285

== ENCOUNTER 2020-06-18 09:44 | Inpatient (IN) | payer MEDICARE, BC ==
[2020-06-18] MEDS ORDERED: SODIUM CHLORIDE 0.9% 1,000 ML IV STA (10:14)
--- NOTE | 2020-06-18 10:18 | ED ---
SOB HPI - General Source: patient Mode of arrival: wheelchair Limitations: physical limitation <Dustin Brantley - Last Filed: 06/18/20 12:51> <Sami Louis - Last Filed: 06/18/20 13:22> - General Chief Complaint: Shortness of Breath Stated Complaint: sob - History of Present Illness Initial Comments: 84-year-old female presents to the emergency department with chief complaint of shortness of breath. Patient reports she was discharged about 4 days ago from this hospital after having a pneumonia and pleural effusion that was drained. Patient reports after drainage, her breathing has greatly improved. However, since discharge, she continued to have increased weakness and dyspnea. She has a pulse oximeter at home which reads 84% whenever she is ambulating between rooms. She denies any chest pain, back pain, headache lightheadedness, dizziness, one-sided weakness or paresthesias. Denies any urinary or vaginal symptoms. Denies any nausea or vomiting or diarrhea. Denies any fevers or chills at home. (Dustin Brantley) - Related Data Home Medications Medication Instructions Recorded Confirmed Atorvastatin [Lipitor] 20 mg PO HS 08/12/16 06/10/20 Levothyroxine Sodium [Synthroid] 100 mcg PO DAILY 08/12/16 06/10/20 amLODIPine [Norvasc] 10 mg PO DAILY 08/12/16 06/10/20 Metoclopramide HCl [Reglan] 5 mg PO TID PRN 04/08/20 06/10/20 Exenatide Microspheres [Bydureon 2 mg SQ CUMMINGS 06/10/20 06/10/20 Pen] Famotidine 40 mg PO DAILY 06/10/20 06/10/20 Pantoprazole Sodium 40 mg PO HS 06/10/20 06/10/20 Allergies Allergy/AdvReac Type Severity Reaction Status Date / Time No Known Allergies Allergy Verified 06/18/20 13:20 Review of Systems ROS Other: All systems not noted in ROS Statement are negative. <Dustin Brantley - Last Filed: 06/18/20 12:51> ROS Other: All systems not noted in ROS Statement are negative. <Sami Louis - Last Filed: 06/18/20 13:22> ROS Statement: Those systems with pertinent positive or pertinent negative responses have been documented in the HPI. Past Medical History Past Medical History: Asthma, Diabetes Mellitus, GERD/Reflux Additional Past Medical History / Comment(s): broke L knee cap, L hand,R foot, L shoulder, Multiple ribs, R hand, R foot, L wrist, Nose. Branden cataract. kidney stones. plates L wrist. osteoporosis. History of Any Multi-Drug Resistant Organisms: None Reported Past Surgical History: Cholecystectomy Past Anesthesia/Blood Transfusion Reactions: No Reported Reaction Past Psychological History: No Psychological Hx Reported Smoking Status: Former smoker Past Alcohol Use History: None Reported Past Drug Use History: None Reported <Dustin Brantley - Last Filed: 06/18/20 12:51> General Exam Limitations: physical limitation General appearance: alert, in no apparent distress Head exam: Present: atraumatic, normocephalic, normal inspection Eye exam: Present: normal appearance, PERRL, EOMI Pupils: Present: normal accommodation ENT exam: Present: normal exam, normal oropharynx, mucous membranes moist, TM's normal bilaterally, normal external ear exam Neck exam: Present: normal inspection, full ROM. Absent: tenderness Respiratory exam: Present: decreased breath sounds (Decreased lung sounds at the right lung base.). Absent: wheezes, chest wall tenderness, accessory muscle use Cardiovascular Exam: Present: regular rate, normal rhythm, normal heart sounds GI/Abdominal exam: Present: soft. Absent: distended, tenderness Extremities exam: Present: normal inspection, full ROM, normal capillary refill. Absent: tenderness Back exam: Present: normal inspection, full ROM. Absent: tenderness, CVA tenderness (R), CVA tenderness (L) Neurological exam: Present: alert, oriented X3 Psychiatric exam: Present: normal affect, normal mood Skin exam: Present: warm, dry, intact, normal color <Dustin Brantley - Last Filed: 06/18/20 12:51> Course <Dustin Brantley - Last Filed: 06/18/20 12:51> <Sami Louis - Last Filed: 06/18/20 13:22> Vital Signs 06/18/20 06/18/20 09:49 11:09 Temperature 99.5 F Pulse Rate 100 90 Respiratory 18 20 Rate Blood Pressure 126/63 146/66 O2 Sat by Pulse 89 L 96 Oximetry - Reevaluation(s) Reevaluation #1: 06/18/20 12:51 Medical records reviewed (Dustin Brantley) Reevaluation #2: 06/18/20 13:21 PA supervision: I did personally do a [id number] evaluation the patient she does present with complaints of shortness of breath she does have a recent d iagnosis of cancer and had a right pleural effusion drained. She appears to have a recurrence of the effusion. She is awake alert in no distress while in bed at 30. I did discuss findings with her and her daughter who is present. Patient will be admitted to Dr. Jeter who did come the emergency department to see the patient. I do agree with the assessment and plan. (Sami Louis) Medical Decision Making - Lab Data Result diagrams: 06/18/20 11:03 06/18/20 11:03 <Dustin Brantley - Last Filed: 06/18/20 12:51> - Lab Data Result diagrams: 06/18/20 11:03 06/18/20 11:03 <Sami Louis - Last Filed: 06/18/20 13:22> - Medical Decision Making 84-year-old female presents to the emergency department with a chief complaint of shortness of breath. On physical examination, patient does not appear to be in significant respiratory distress. She does have decreased breath sounds in the right lung base. X-ray reveals a right-sided pleural effusion. CBC CMP and UA unremarkable. Patient is 95% on 3 L of oxygen nasal cannula. Coags within normal limits. I spoke with who will admit for DR Christiansen. Case discussed with Dr. Louis. Dr. dupont on consult. Dr. Gil on consult. (Dustin Brantley) - Lab Data Lab Results 06/18/20 06/18/20 06/18/20 Range/Units 11:03 11:03 11:03 WBC 5.8 (3.8-10.6) k/uL RBC 4.02 (3.80-5.40) m/uL Hgb 12.3 (11.4-16.0) gm/dL Hct 35.8 (34.0-46.0) % MCV 89.1 (80.0-100.0) fL MCH 30.7 (25.0-35.0) pg MCHC 34.4 (31.0-37.0) g/dL RDW 13.6 (11.5-15.5) % Plt Count 292 (150-450) k/uL MPV 6.7 Neutrophils % 80 % Lymphocytes % 8 % Monocytes % 8 % Eosinophils % 2 % Basophils % 1 % Neutrophils # 4.7 (1.3-7.7) k/uL Lymphocytes # 0.5 L (1.0-4.8) k/uL Monocytes # 0.4 (0-1.0) k/uL Eosinophils # 0.1 (0-0.7) k/uL Basophils # 0.1 (0-0.2) k/uL PT 11.3 (9.0-12.0) sec INR 1.1 (<1.2) APTT 25.2 (22.0-30.0) sec Sodium 136 L (137-145) mmol/L Potassium 3.9 (3.5-5.1) mmol/L Chloride 101 (98-107) mmol/L Carbon Dioxide 28 (22-30) mmol/L Anion Gap 7 mmol/L BUN 6 L (7-17) mg/dL Creatinine 0.50 L (0.52-1.04) mg/dL Est GFR (CKD-EPI)AfAm >90 (>60 ml/min/1.73 sqM) Est GFR (CKD-EPI)NonAf >90 (>60 ml/min/1.73 sqM) Glucose 179 H (74-99) mg/dL Plasma Lactic Acid Brandon (0.7-2.0) mmol/L Calcium 9.1 (8.4-10.2) mg/dL Total Bilirubin 0.6 (0.2-1.3) mg/dL AST 28 (14-36) U/L ALT 23 (4-34) U/L Alkaline Phosphatase 74 (38-126) U/L Total Protein 6.6 (6.3-8.2) g/dL Albumin 3.4 L (3.5-5.0) g/dL Urine Color Urine Appearance (Clear) Urine pH (5.0-8.0) Ur Specific Ivel (1.001-1.035) Urine Protein (Negative) Urine Glucose (UA) (Negative) Urine Ketones (Negative) Urine Blood (Negative) Urine Nitrite (Negative) Urine Bilirubin (Negative) Urine Urobilinogen (<2.0) mg/dL Ur Leukocyte Esterase (Negative) Urine RBC (0-5) /hpf Urine WBC (0-5) /hpf Ur Squamous Epith Cells (0-4) /hpf Urine Bacteria (None) /hpf Hyaline Casts (0-2) /lpf Urine Mucus (None) /hpf 06/18/20 06/18/20 Range/Units 11:03 12:02 WBC (3.8-10.6) k/uL RBC (3.80-5.40) m/uL Hgb (11.4-16.0) gm/dL Hct (34.0-46.0) % MCV (80.0-100.0) fL MCH (25.0-35.0) pg MCHC (31.0-37.0) g/dL RDW (11.5-15.5) % Plt Count (150-450) k/uL MPV Neutrophils % % Lymphocytes % % Monocytes % % Eosinophils % % Basophils % % Neutrophils # (1.3-7.7) k/uL Lymphocytes # (1.0-4.8) k/uL Monocytes # (0-1.0) k/uL Eosinophils # (0-0.7) k/uL Basophils # (0-0.2) k/uL PT (9.0-12.0) sec INR (<1.2) APTT (22.0-30.0) sec Sodium (137-145) mmol/L Potassium (3.5-5.1) mmol/L Chloride (98-107) mmol/L Carbon Dioxide (22-30) mmol/L Anion Gap mmol/L BUN (7-17) mg/dL Creatinine (0.52-1.04) mg/dL Est GFR (CKD-EPI)AfAm (>60 ml/min/1.73 sqM) Est GFR (CKD-EPI)NonAf (>60 ml/min/1.73 sqM) Glucose (74-99) mg/dL Plasma Lactic Acid Brandon 1.3 (0.7-2.0) mmol/L Calcium (8.4-10.2) mg/dL Total Bilirubin (0.2-1.3) mg/dL AST (14-36) U/L ALT (4-34) U/L Alkaline Phosphatase (38-126) U/L Total Protein (6.3-8.2) g/dL Albumin (3.5-5.0) g/dL Urine Color Yellow Urine Appearance Clear (Clear) Urine pH 6.0 (5.0-8.0) Ur Specific Ivel 1.013 (1.001-1.035) Urine Protein 1+ H (Negative) Urine Glucose (UA) 1+ H (Negative) Urine Ketones Trace H (Negative) Urine Blood Negative (Negative) Urine Nitrite Negative (Negative) Urine Bilirubin Negative (Negative) Urine Urobilinogen <2.0 (<2.0) mg/dL Ur Leukocyte Esterase Small H (Negative) Urine RBC 2 (0-5) /hpf Urine WBC 1 (0-5) /hpf Ur Squamous Epith Cells 2 (0-4) /hpf Urine Bacteria Rare H (None) /hpf Hyaline Casts 3 H (0-2) /lpf Urine Mucus Few H (None) /hpf - EKG Data EKG Comments: Sinus rhythm, no ST changes Ventricular rate 90, WA 132, QRS 80, QTC 413. (Dustin Brantley) Disposition Is patient prescribed a controlled substance at d/c from ED?: No Time of Disposition: 12:54 <Dustin Brantley - Last Filed: 06/18/20 12:51> <Sami Louis - Last Filed: 06/18/20 13:22> Clinical Impression: Lung mass, Pleural effusion Disposition: ADMITTED IP TO THIS HOSP Condition: Fair
[2020-06-18 11:12] LABS: Basophils # (A) 0.1 k/uL (0-0.2); Basophils % (A) 1 %; Eosinophils # (A) 0.1 k/uL (0-0.7); Eosinophils % (A) 2 %; HCT 35.8 % (34.0-46.0); HGB 12.3 gm/dL (11.4-16.0); Lymphocytes # (A) 0.5 k/uL (1.0-4.8); Lymphocytes % (A) 8 %; MCH 30.7 pg (25.0-35.0); MCHC 34.4 g/dL (31.0-37.0); MCV 89.1 fL (80.0-100.0); Mean Platelet Volume 6.7; Monocytes # (A) 0.4 k/uL (0-1.0); Monocytes % (A) 8 %; Neutrophils # (A) 4.7 k/uL (1.3-7.7); Neutrophils % (A) 80 %; Platelet Count 292 k/uL (150-450); RBC 4.02 m/uL (3.80-5.40); RDW 13.6 % (11.5-15.5); WBC 5.8 k/uL (3.8-10.6)
[2020-06-18 11:26] LABS: INR 1.1 (<1.2); Partial Thromboplastin Time 25.2 sec (22.0-30.0); Prothrombin Time 11.3 sec (9.0-12.0)
[2020-06-18 11:33] LABS: ALT 23 U/L (4-34); AST 28 U/L (14-36); African American GFR (CKD) >90 (>60 ml/min/1.73 sqM); Albumin 3.4 g/dL (3.5-5.0); Alkaline Phosphatase 74 U/L (38-126); Anion Gap 7 mmol/L; Blood Urea Nitrogen 6 mg/dL (7-17); Calcium 9.1 mg/dL (8.4-10.2); Carbon Dioxide 28 mmol/L (22-30); Chloride 101 mmol/L (98-107); Glucose 179 mg/dL (74-99); Non-African American GFR(CKD) >90 (>60 ml/min/1.73 sqM); Potassium 3.9 mmol/L (3.5-5.1); Sodium 136 mmol/L (137-145); Total Bilirubin 0.6 mg/dL (0.2-1.3); Total Protein 6.6 g/dL (6.3-8.2)
--- NOTE | 2020-06-18 12:13 | XR ---
EXAMINATION TYPE: XR chest 2V DATE OF EXAM: 06/18/2020 COMPARISON: 06/14/2020 HISTORY: 84-year-old female coughing recently drained effusion. TECHNIQUE: AP and lateral views FINDINGS: Right heart margin obscured by adjacent pleural parenchymal opacity. There is persistent moderate rig ht pleural effusion. Extensive opacity extends up to the upper lung level, increased from prior. Old healed right-sided rib fracture deformities. Left lung relatively clear. IMPRESSION: Persistent moderate right pleural effusion with adjacent atelectasis and/or consolidation. There is e xtensive opacity on the right as well which extends up to the upper lung level, increased from 021. Some of this density relates to the patient's known underlying mass. Superimposed increasing ate lectasis or infiltrate is difficult to exclude.
[2020-06-18 12:25] LABS: Appearance,Urine Clear (Clear); Bacteria,Urine Rare /hpf; Bilirubin,Urine Negative (Negative); Blood,Urine Negative (Negative); Color,Urine Yellow; Glucose,Urine (UA) 1+ (Negative); Hyaline Casts,Urine 3 /lpf (0-2); Ketones,Urine Trace (Negative); Leukocyte Esterase,Urine Small (Negative); Mucus,Urine Few /hpf; Nitrite,Urine Negative (Negative); Protein,Urine 1+ (Negative); RBC,Urine 2 /hpf (0-5); Specific Gravity,Urine 1.013 (1.001-1.035); Squamous Epithelial Cell,Urine 2 /hpf (0-4); Urobilinogen,Urine <2.0 mg/dL (<2.0); WBC,Urine 1 /hpf (0-5)
[2020-06-18] MEDS ORDERED: LORazepam 2 MG/ML INJ IV PRN (12:49)
[2020-06-18] MEDS ORDERED: NALOXONE 0.4 MG/ML 1 ML VIAL IV PRN (12:49)
[2020-06-18] MEDS ORDERED: METOCLOPRAMIDE 5 MG TAB PO PRN (14:46)
--- NOTE | 2020-06-18 14:50 | P.HPIM ---
History of Present Illness Patient is a pleasant 10-year-old female came in with comments of shortness of breath patient has been hypoxic around 84% when checked and family members. Patient has been using oxygen from one of the friends because she gets short of breath easily. Patient was discharged recently from the hospital after she was treated for right-sided pleural effusion patient had thoracentesis twice. 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 Patient is found to have recurrence of this pleural effusion. Patient may need Pleurx catheter, cardiac thoracic surgery is being consulted there is no evidence of infection at this time. Patient will not need any antibiotics. Review of Systems REVIEW OF SYSTEMS: CONSTITUTIONAL: No fever, no malaise, no fatigue. HEENT: No recent visual problems or hearing problems. Denied any sore throat. CARDIOVASCULAR: No chest pain, orthopnea, PND, no palpitations, no syncope. PULMONARY: As mentioned in HPI GASTROINTESTINAL: No diarrhea, no nausea, no vomiting, no abdominal pain. NEUROLOGICAL: No headaches, no weakness, no numbness. HEMATOLOGICAL: Denies any bleeding or petechiae. GENITOURINARY: Denies any burning micturition, frequency, or urgency. MUSCULOSKELETAL/RHEUMATOLOGICAL: Denies any joint pain, swelling, or any muscle pain. ENDOCRINE: Denies any polyuria or polydipsia. The rest of the 14-point review of systems is negative. Past Medical History Past Medical History: Asthma, Diabetes Mellitus, GERD/Reflux Additional Past Medical History / Comment(s): broke L knee cap, L hand,R foot, L shoulder, Multiple ribs, R hand, R foot, L wrist, Nose. Branden cataract. kidney stones. plates L wrist. osteoporosis. History of Any Multi-Drug Resistant Organisms: None Reported Past Surgical History: Cholecystectomy Past Anesthesia/Blood Transfusion Reactions: No Reported Reaction Past Psychological History: No Psychological Hx Reported Smoking Status: Former smoker Past Alcohol Use History: None Reported Past Drug Use History: None Reported Medications and Allergies Home Medications Medication Instructions Recorded Confirmed Type Atorvastatin [Lipitor] 20 mg PO HS 08/12/16 06/18/20 History Levothyroxine Sodium [Synthroid] 100 mcg PO DAILY 08/12/16 06/18/20 History amLODIPine [Norvasc] 10 mg PO DAILY 08/12/16 06/18/20 History Metoclopramide HCl [Reglan] 5 mg PO TID PRN 04/08/20 06/18/20 History Exenatide Microspheres [Bydureon 2 mg SQ CUMMINGS 06/10/20 06/18/20 History Pen] Famotidine 40 mg PO DAILY 06/10/20 06/18/20 History Pantoprazole Sodium 40 mg PO HS 06/10/20 06/18/20 History Allergies Allergy/AdvReac Type Severity Reaction Status Date / Time No Known Allergies Allergy Verified 06/18/20 13:20 Physical Exam Vitals: Vital Signs Temp Pulse Resp BP Pulse Ox 06/18/20 11:09 90 20 146/66 96 06/18/20 09:49 99.5 F 100 18 126/63 89 L Intake and Output 06/17/20 06/18/20 06/18/20 22:59 06:59 14:59 Other: Weight 58.967 kg PHYSICAL EXAMINATION: GENERAL: The patient is alert and oriented x3, not in any acute distress. Thin built female HEENT: Pupils are round and equally reacting to light. EOMI. No scleral icterus. No conjunctival pallor. Normocephalic, atraumatic. No pharyngeal erythema. No th yromegaly. CARDIOVASCULAR: S1 and S2 present. No murmurs, rubs, or gallops. PULMONARY: Decreased air movement in the posterior lung thao on the right side no wheezing was appreciated ABDOMEN: Soft, nontender, nondistended, normoactive bowel sounds. No palpable organomegaly. MUSCULOSKELETAL: No joint swelling or deformity. EXTREMITIES: No cyanosis, clubbing, or pedal edema. NEUROLOGICAL: Gross neurological examination did not reveal any focal deficits. SKIN: No rashes. Results CBC & Chem 7: 06/18/20 11:03 06/18/20 11:03 Labs: Abnormal Lab Results - Last 24 Hours (Table) 06/18/20 06/18/20 06/18/20 Range/Units 11:03 11:03 12:02 Lymphocytes # 0.5 L (1.0-4.8) k/uL Sodium 136 L (137-145) mmol/L BUN 6 L (7-17) mg/dL Creatinine 0.50 L (0.52-1.04) mg/dL Glucose 179 H (74-99) mg/dL Albumin 3.4 L (3.5-5.0) g/dL Urine Protein 1+ H (Negative) Urine Glucose (UA) 1+ H (Negative) Urine Ketones Trace H (Negative) Ur Leukocyte Esterase Small H (Negative) Urine Bacteria Rare H (None) /hpf Hyaline Casts 3 H (0-2) /lpf Urine Mucus Few H (None) /hpf Assessment and Plan Plan: -Acute hypoxic respiratory failure: Secondary to right-sided pleural effusion patient has malignant pleural effusion recurrent pleural effusion With thoracic surgery will be consulted for possible Pleurx catheter placement. -Adenocarcinoma of the right lung patient underwent workup for metastasis to the brain which was negative during her last hospitalization oncology was consulted as well -Type 2 diabetes mellitus -Hypertension -COPD without any acute exacerbation DVT prophylaxis with Lovenox
[2020-06-18] MEDS: SODIUM CHLORIDE 0.9% 1,000 ML IV SCH (15:57)
[2020-06-18] MEDS: ACETAMINOPHEN TAB 325 MG TAB PO PRN (20:47)
[2020-06-18] MEDS: ATORVASTATIN 20 MG TAB PO SCH (21:55)
[2020-06-18] MEDS: PANTOPRAZOLE 40 MG TABLET PO SCH (21:55)
[2020-06-19] MEDS: SODIUM CHLORIDE 0.9% 1,000 ML IV SCH (04:59)
[2020-06-19 06:02] LABS: African American GFR (CKD) >90 (>60 ml/min/1.73 sqM); Anion Gap 4 mmol/L; Blood Urea Nitrogen 5 mg/dL (7-17); Calcium 8.3 mg/dL (8.4-10.2); Carbon Dioxide 33 mmol/L (22-30); Chloride 101 mmol/L (98-107); Glucose 130 mg/dL (74-99); Non-African American GFR(CKD) >90 (>60 ml/min/1.73 sqM); Potassium 4.1 mmol/L (3.5-5.1); Sodium 138 mmol/L (137-145)
[2020-06-19] MEDS: LEVOTHYROXINE 100 MCG TAB PO SCH (06:36)
[2020-06-19] MEDS: FAMOTIDINE 20 MG TAB PO SCH (07:29)
[2020-06-19] MEDS: amLODIPine 10 MG TAB PO SCH (07:29)
[2020-06-19 09:09] LABS: HCT 33.9 % (37.2-46.3); HGB 10.4 g/dL (12.0-15.0); MCH 29.5 pg (27.0-32.0); MCHC 30.7 g/dL (32.0-37.0); Mean Platelet Volume 9.4 fL (9.5-12.2); Platelet Count 249 X 10*3/uL (140-440); RBC 3.53 X 10*6/uL (4.10-5.20); RDW 13.8 % (11.5-14.5); WBC 5.01 X 10*3/uL (4.50-10.00)
--- NOTE | 2020-06-19 09:36 | US ---
EXAMINATION TYPE: US chest DATE OF EXAM: 06/19/2020 COMPARISON: Chest x-ray 06/19/2020 CLINICAL HISTORY: Markings for thoracentesis by pulmonary staff. TECHNIQUE: Targeted ultrasound of the posterior lower bilateral hemithoraces EXAM MEASUREMENTS: Right Pleural Effusion pocket size: 9.3 cm Right skin surface to fluid distance: 2.4 cm Left Pleural Effusion pocket size: 0 cm Right side marked for possible thoracentesis outside the dept. Pulmonologists are able to review the images in the patient?s EMR. Limited ultrasound performed posterior chest bilaterally, no evident effusion on the left. IMPRESSIONS: Large right pleural effusion
--- NOTE | 2020-06-19 09:44 | XR ---
EXAMINATION TYPE: XR chest 1V portable DATE OF EXAM: 06/19/2020 COMPARISON: Chest x-ray 06/18/2020 HISTORY: Pleural effusion TECHNIQUE: Single frontal view of the chest is obtained. FINDINGS: Abnormal density at the right lung base obscures the hemidiaphragm and right heart border. Apical pleural thickening present on the right. Heart is partially obscured but thought to be stable . No evident pneumothorax. Distortion of the proximal left humerus likely due to remote trauma. There are overlying leads. IMPRESSION: Right pleural effusion and associated atelectasis, correlate for pneumonia.
--- NOTE | 2020-06-19 10:46 | P.GSCN ---
<June Cervantes - Last Filed: 06/19/20 10:30> History of Present Illness Consult date: 06/19/20 Reason for Consult: Pleural effusion Requesting physician: Dustin Brantley History of present illness: This is an 84-year-old female who follows on an outpatient basis with Dr. Maria Isabel Anthony. She is a previous medical history of asthma, diabetes, GERD, and previous tobacco dependence. She was discharged from [facility] 06/15/2020 after a 5 day stay for shortness of breath with pneumonia and lung mass. During that stay she had a CT scan demonstrating supraclavicular mass measuring 5.4 x 4.4 x 6.3 cm, loculated right pleural effusion, and paratracheal lymphadenopathy. She underwent thoracentesis by Dr. Rodriguez June 11 with removal of 750 mL turbid colored fluid, cytology was positive for adenocarcinoma. She was stabilized and discharged to follow-up as an outpatient with pulmonology and oncology. Unfortunately, she had been home for a couple of days and started to have increasing shortness of breath, home pulse oximeter registered her saturation at 84% and she presented back to [facility] emergency room. She was again admitted for evaluation and treatment with consultation placed to pulmonology as well as cardiothoracic surgery for moderate right-sided pleural effusion. Review of Systems Review of symptoms completed from chart review as patient is positive for Covid - Respiratory Respiratory Comment(s): Hypoxemia as evidenced by patient reporting oxygen saturation 84% on room air at home Reports as per HPI, Reports dyspnea Past Medical History Past Medical History: Asthma, Diabetes Mellitus, GERD/Reflux Additional Past Medical History / Comment(s): broke L knee cap, L hand,R foot, L shoulder, Multiple ribs, R hand, R foot, L wrist, Nose. Branden cataract. kidney stones. plates L wrist. osteoporosis. History of Any Multi-Drug Resistant Organisms: None Reported Past Surgical History: Cholecystectomy Past Anesthesia/Blood Transfusion Reactions: No Reported Reaction Past Psychological History: No Psychological Hx Reported Smoking Status: Former smoker Past Alcohol Use History: None Reported Past Drug Use History: None Reported Medications and Allergies Home Medications Medication Instructions Recorded Confirmed Type Atorvastatin [Lipitor] 20 mg PO HS 08/12/16 06/18/20 History Levothyroxine Sodium [Synthroid] 100 mcg PO DAILY 08/12/16 06/18/20 History amLODIPine [Norvasc] 10 mg PO DAILY 08/12/16 06/18/20 History Metoclopramide HCl [Reglan] 5 mg PO TID PRN 04/08/20 06/18/20 History Exenatide Microspheres [Bydureon 2 mg SQ CUMMINGS 06/10/20 06/18/20 History Pen] Famotidine 40 mg PO DAILY 06/10/20 06/18/20 History Pantoprazole Sodium 40 mg PO HS 06/10/20 06/18/20 History Allergies Allergy/AdvReac Type Severity Reaction Status Date / Time No Known Allergies Allergy Verified 06/18/20 13:20 Surgical - Exam Vital Signs Temp Pulse Resp BP Pulse Ox 99.5 F 100 18 126/63 89 L 06/18/20 09:49 06/18/20 09:49 06/18/20 09:49 06/18/20 09:49 06/18/20 09:49 Physical exam not completed as patient is positive for Covid Results - Labs 06/19/20 04:29 06/19/20 04:29 Abnormal Lab Results - Last 24 Hours (Table) 06/18/20 06/18/20 06/18/20 Range/Units 11:03 11:03 12:02 RBC (4.10-5.20) X 10*6/uL Hgb (12.0-15.0) g/dL Hct (37.2-46.3) % MCHC (32.0-37.0) g/dL MPV (9.5-12.2) fL Lymphocytes # 0.5 L (1.0-4.8) k/uL Sodium 136 L (137-145) mmol/L Carbon Dioxide (22-30) mmol/L BUN 6 L (7-17) mg/dL Creatinine 0.50 L (0.52-1.04) mg/dL Glucose 179 H (74-99) mg/dL Calcium (8.4-10.2) mg/dL Albumin 3.4 L (3.5-5.0) g/dL Urine Protein 1+ H (Negative) Urine Glucose (UA) 1+ H (Negative) Urine Ketones Trace H (Negative) Ur Leukocyte Esterase Small H (Negative) Urine Bacteria Rare H (None) /hpf Hyaline Casts 3 H (0-2) /lpf Urine Mucus Few H (None) /hpf Coronavirus (PCR) (Not Detectd) 06/18/20 06/19/20 06/19/20 Range/Units 15:24 04:29 04:29 RBC 3.53 L (4.10-5.20) X 10*6/uL Hgb 10.4 L (12.0-15.0) g/dL Hct 33.9 L (37.2-46.3) % MCHC 30.7 L (32.0-37.0) g/dL MPV 9.4 L (9.5-12.2) fL Lymphocytes # (1.0-4.8) k/uL Sodium (137-145) mmol/L Carbon Dioxide 33 H (22-30) mmol/L BUN 5 L (7-17) mg/dL Creatinine 0.50 L (0.52-1.04) mg/dL Glucose 130 H (74-99) mg/dL Calcium 8.3 L (8.4-10.2) mg/dL Albumin (3.5-5.0) g/dL Urine Protein (Negative) Urine Glucose (UA) (Negative) Urine Ketones (Negative) Ur Leukocyte Esterase (Negative) Urine Bacteria (None) /hpf Hyaline Casts (0-2) /lpf Urine Mucus (None) /hpf Coronavirus (PCR) Detected A (Not Detectd) Diabetes panel 06/18/20 06/19/20 Range/Units 11:03 04:29 Sodium 136 L 138 (137-145) mmol/L Potassium 3.9 4.1 (3.5-5.1) mmol/L Chloride 101 101 (98-107) mmol/L Carbon Dioxide 28 33 H (22-30) mmol/L BUN 6 L 5 L (7-17) mg/dL Creatinine 0.50 L 0.50 L (0.52-1.04) mg/dL Glucose 179 H 130 H (74-99) mg/dL Calcium 9.1 8.3 L (8.4-10.2) mg/dL AST 28 (14-36) U/L ALT 23 (4-34) U/L Alkaline Phosphatase 74 (38-126) U/L Total Protein 6.6 (6.3-8.2) g/dL Albumin 3.4 L (3.5-5.0) g/dL Calcium panel 06/18/20 06/19/20 Range/Units 11:03 04:29 Calcium 9.1 8.3 L (8.4-10.2) mg/dL Albumin 3.4 L (3.5-5.0) g/dL Pituitary panel 06/18/20 06/19/20 Range/Units 11:03 04:29 Sodium 136 L 138 (137-145) mmol/L Potassium 3.9 4.1 (3.5-5.1) mmol/L Chloride 101 101 (98-107) mmol/L Carbon Dioxide 28 33 H (22-30) mmol/L BUN 6 L 5 L (7-17) mg/dL Creatinine 0.50 L 0.50 L (0.52-1.04) mg/dL Glucose 179 H 130 H (74-99) mg/dL Calcium 9.1 8.3 L (8.4-10.2) mg/dL Adrenal panel 06/18/20 06/19/20 Range/Units 11:03 04:29 Sodium 136 L 138 (137-145) mmol/L Potassium 3.9 4.1 (3.5-5.1) mmol/L Chloride 101 101 (98-107) mmol/L Carbon Dioxide 28 33 H (22-30) mmol/L BUN 6 L 5 L (7-17) mg/dL Creatinine 0.50 L 0.50 L (0.52-1.04) mg/dL Glucose 179 H 130 H (74-99) mg/dL Calcium 9.1 8.3 L (8.4-10.2) mg/dL Total Bilirubin 0.6 (0.2-1.3) mg/dL AST 28 (14-36) U/L ALT 23 (4-34) U/L Alkaline Phosphatase 74 (38-126) U/L Total Protein 6.6 (6.3-8.2) g/dL Albumin 3.4 L (3.5-5.0) g/dL - Imaging Chest x-ray: report reviewed, image reviewed Assessment and Plan Assessment: 1. Right-sided malignant pleural effusion 2. Adenocarcinoma, recent new diagnosis 3. Covid 19 positive 4. Shortness of breath, secondary to above diagnoses 5. History of asthma, COPD 6. History of diabetes 7. GERD 8. Previous tobacco dependence 9. History of right-sided breast cancer diagnosed in 2009, treated with lumpectomy followed by radiation therapy and tamoxifen Plan: Chart was reviewed with Dr. Ariza including chest x-ray. Unfortunately patient has tested positive for Covid 19 (06/18/20, previous test 06/10/20 was negative). We would recommend waiting 4-6 weeks for Pleurx catheter placement to allow time for treatment and resolution of Covid. This was discussed with Dr. Velasquez who did order a chest ultrasound for possible thoracentesis. After successful treatment of Covid if pleural effusion recurs the patient may follow in the office with Dr. Ariza to discuss Pleurx catheter placement. Our contact information will be placed on the discharge plan. Management of other comorbidities per primary care service, oncology. Thank you for this consult. Please call us with any further questions. Time with Patient: Greater than 30 <Varinder Ariza R - Last Filed: 06/19/20 13:59> Surgical - Exam Vital Signs Temp Pulse Resp BP Pulse Ox 99.5 F 100 18 126/63 89 L 06/18/20 09:49 06/18/20 09:49 06/18/20 09:49 06/18/20 09:49 06/18/20 09:49 Results - Labs 06/19/20 04:29 06/19/20 04:29 Abnormal Lab Results - Last 24 Hours (Table) 06/18/20 06/19/20 06/19/20 Range/Units 15:24 04:29 04:29 RBC 3.53 L (4.10-5.20) X 10*6/uL Hgb 10.4 L (12.0-15.0) g/dL Hct 33.9 L (37.2-46.3) % MCHC 30.7 L (32.0-37.0) g/dL MPV 9.4 L (9.5-12.2) fL Carbon Dioxide 33 H (22-30) mmol/L BUN 5 L (7-17) mg/dL Creatinine 0.50 L (0.52-1.04) mg/dL Glucose 130 H (74-99) mg/dL Calcium 8.3 L (8.4-10.2) mg/dL Coronavirus (PCR) Detected A (Not Detectd) Diabetes panel 06/19/20 Range/Units 04:29 Sodium 138 (137-145) mmol/L Potassium 4.1 (3.5-5.1) mmol/L Chloride 101 (98-107) mmol/L Carbon Dioxide 33 H (22-30) mmol/L BUN 5 L (7-17) mg/dL Creatinine 0.50 L (0.52-1.04) mg/dL Glucose 130 H (74-99) mg/dL Calcium 8.3 L (8.4-10.2) mg/dL Calcium panel 06/19/20 Range/Units 04:29 Calcium 8.3 L (8.4-10.2) mg/dL Pituitary panel 06/19/20 Range/Units 04:29 Sodium 138 (137-145) mmol/L Potassium 4.1 (3.5-5.1) mmol/L Chloride 101 (98-107) mmol/L Carbon Dioxide 33 H (22-30) mmol/L BUN 5 L (7-17) mg/dL Creatinine 0.50 L (0.52-1.04) mg/dL Glucose 130 H (74-99) mg/dL Calcium 8.3 L (8.4-10.2) mg/dL Adrenal panel 06/19/20 Range/Units 04:29 Sodium 138 (137-145) mmol/L Potassium 4.1 (3.5-5.1) mmol/L Chloride 101 (98-107) mmol/L Carbon Dioxide 33 H (22-30) mmol/L BUN 5 L (7-17) mg/dL Creatinine 0.50 L (0.52-1.04) mg/dL Glucose 130 H (74-99) mg/dL Calcium 8.3 L (8.4-10.2) mg/dL Assessment and Plan Assessment: 84-year-old female with recurrent right-sided effusion positive for adenocarcinoma. Pleurx is indicated. Unfortunately came patient is recently turned Covid positive. A period of 4-6 weeks is recommended prior to performing any [id number] surgery after this diagnosis. Recommend repeated thorac entesis as needed and Pleurx catheter in a month's time if the patient continues to have recurrent effusion.
--- NOTE | 2020-06-19 12:26 | P.CNPUL ---
History of Present Illness Consult date: 06/19/20 Requesting physician: Blane Jeter Reason for consult: dyspnea, cough, hypoxemia, pleural effusion, abnormal CXR/CT Chief complaint: Shortness of breath, and cough. History of present illness: 84-year-old female who presented to the emergency department on June 18, with chief complaints of increasing shortness of breath. The patient was recently discharged from the hospital about 4 days ago having had a pneumonia and pleural effusion. She had a right-sided thoracentesis. Also, on June 10, she underwent bronchoscopy with biopsy by Dr. Rodriguez. My nurse practitioner tells me that the pathology came back positive for adenocarcinoma. Some of the biopsies are currently pending. I'm not sure if the fluid was sent for cytology. The thoracentesis was done by interventional radiology. Anyway when she presented to the emergency department, her saturations are only 84% on room air. She was quite short of breath. She was coughing. She hasn't been feeling well for about 2 weeks now. She states that she tested positive for coronavirus just today. She apparently has a history of COPD/asthma, diabetes, acid reflux disease, and was also recently found to have a large mass in the right upper lobe. She also has a history of hypothyroidism, hyperlipidemia, and hypertension. White count is 5, he will become 0.4, hematocrit 33.9, and platelet count 209,000. Sodium 138, potassium 4.1, chlorides 101, CO2 33, anion gap 4, BUN 5, and creatinine 0.5. Urine was positive for leukocyte esterase, with rare bacteria, and 1 WBC. Chest x-ray shows a right-sided pleural effusio n, with some basilar atelectasis and collapse. The pocket of fluid on the right side is 9.3 cm. Review of Systems REVIEW OF SYSTEMS: CONSTITUTIONAL: Fatigue and weakness. NEUROLOGIC: [ Negative.] HEENT: [ Negative.] CARDIAC: [Negative.] PULMONARY: Cough and shortness of breath. GI: [Negative.] : [Negative.] RHEUMATOLOGIC: [ Negative.] IMMUNOLOGIC: [ Negative.] ENDOCRINE: [Negative. ] DERMATOLOGIC: [Negative.] Past Medical History Past Medical History: Asthma, Diabetes Mellitus, GERD/Reflux Additional Past Medical History / Comment(s): broke L knee cap, L hand,R foot, L shoulder, Multiple ribs, R hand, R foot, L wrist, Nose. Branden cataract. kidney stones. plates L wrist. osteoporosis. History of Any Multi-Drug Resistant Organisms: None Reported Past Surgical History: Cholecystectomy Past Anesthesia/Blood Transfusion Reactions: No Reported Reaction Past Psychological History: No Psychological Hx Reported Smoking Status: Former smoker Past Alcohol Use History: None Reported Past Drug Use History: None Reported Medications and Allergies Home Medications Medication Instructions Recorded Confirmed Type Atorvastatin [Lipitor] 20 mg PO HS 08/12/16 06/18/20 History Levothyroxine Sodium [Synthroid] 100 mcg PO DAILY 08/12/16 06/18/20 History amLODIPine [Norvasc] 10 mg PO DAILY 08/12/16 06/18/20 History Metoclopramide HCl [Reglan] 5 mg PO TID PRN 04/08/20 06/18/20 History Exenatide Microspheres [Bydureon 2 mg SQ CUMMINGS 06/10/20 06/18/20 History Pen] Famotidine 40 mg PO DAILY 06/10/20 06/18/20 History Pantoprazole Sodium 40 mg PO HS 06/10/20 06/18/20 History Allergies Allergy/AdvReac Type Severity Reaction Status Date / Time No Known Allergies Allergy Verified 06/18/20 13:20 Physical Exam Osteopathic Statement: *. No significant issues noted on an osteopathic structural exam other than those noted in the History and Physical/Consult. Vitals: Vital Signs Temp Pulse Resp BP Pulse Ox 06/19/20 07:42 98 F 06/19/20 07:30 95 18 140/95 92 L 06/19/20 06:38 99 F 92 18 149/92 92 L 06/19/20 03:41 98.9 F 78 18 143/69 95 06/18/20 21:56 100.6 F H 93 18 143/69 93 L 06/18/20 20:51 20 06/18/20 20:49 101 F H 96 20 162/78 94 L 06/18/20 18:02 101 F H 96 20 149/74 94 L 06/18/20 16:41 94 L 06/18/20 15:24 100.9 F H 94 18 148/75 93 L No acute distress, oriented 3. Patient currently on O2 at 4 L. No conversational dyspnea or use of accessory muscles. HEENT examination is grossly unremarkable. Mucous membranes are moist. No oral lesions. Neck supple. Full range of motion. No adenopathy thyromegaly or neck vein distention. Cardiovascular examination reveals regular rhythm rate. S1-S2 normal. No S3 or S4. No discernible murmur noted. Heart rate 95 bpm. Lungs reveal diminished breath sounds at the right base. There is dullness at the right base. A few scattered rhonchi are noted. The left lung is clear. Abdomen soft bowel sounds are heard. No masses or tenderness. Extremities are intact. No cyanosis clubbing or edema. Skin is without rash or lesion. Neurologic examination is brief but nonfocal. Results - Laboratory Findings CBC and BMP: 06/19/20 04:29 06/19/20 04:29 PT/INR, D-dimer PT 11.3 sec (9.0-12.0) 06/18/20 11:03 INR 1.1 (<1.2) 06/18/20 11:03 Abnormal lab findings: Abnormal Labs 06/18/20 06/18/20 06/18/20 11:03 11:03 12:02 RBC Hgb Hct MCHC MPV Lymphocytes # 0.5 L Sodium 136 L Carbon Dioxide BUN 6 L Creatinine 0.50 L Glucose 179 H Calcium Albumin 3.4 L Urine Protein 1+ H Urine Glucose (UA) 1+ H Urine Ketones Trace H Ur Leukocyte Esterase Small H Urine Bacteria Rare H Hyaline Casts 3 H Urine Mucus Few H Coronavirus (PCR) 06/18/20 06/19/20 06/19/20 15:24 04:29 04:29 RBC 3.53 L Hgb 10.4 L Hct 33.9 L MCHC 30.7 L MPV 9.4 L Lymphocytes # Sodium Carbon Dioxide 33 H BUN 5 L Creatinine 0.50 L Glucose 130 H Calcium 8.3 L Albumin Urine Protein Urine Glucose (UA) Urine Ketones Ur Leukocyte Esterase Urine Bacteria Hyaline Casts Urine Mucus Coronavirus (PCR) Detected A - Diagnostic Findings Chest x-ray: image reviewed CT scan - chest: image reviewed Assessment and Plan Assessment: COVID 19 infection, with hypoxemia, rule out COVID 19 pneumonia. Recent diagnosis of lung cancer, adenocarcinoma, involving the right upper lobe. Right-sided pleural effusion, status post recent thoracentesis. History of hypertension. History of hyperlipidemia. History of diabetes mellitus. History of asthma/COPD. History of gastroesophageal reflux disease. Prior history of tobacco use. History of osteoporosis. Plan: Plan dated 06/19/2020. The patient should receive Decadron 6 mg a day, Lovenox 40 mg subcu daily, and vitamin C, vitamin D3, and zinc. The patient is outside the window for REM. The patient has been sick for at least 2 weeks or so. The results of the recent thoracentesis is pending. Biopsy results from June 10 are still pending. We will continue to follow. Prognosis is guarded. She has been seen by cardiothoracic surgery. Time with Patient: Greater than 30
--- NOTE | 2020-06-19 12:51 | P.CONS ---
History of Present Illness - Reason for Consult Consult date: 06/18/20 likely newadenocarcinoma malignancy Requesting physician: Dustin Brantley - Chief Complaint Recurrent effusion - History of Present Illness Mrs. Xochilt solomon a patient who was recenly discharged last week after admission found to have a lobular mass in the supraclavicular low measuring 5.4 x 4.4 x 6.3 cm in size and neoplasm is highly suspected. At the same time, the patient have another 6 mm nodular focus in the left apex, apical scarring, a loculated right-sided effusion was present along with compressive atelectasis of the right lung base and there was enlarged mediastinal lymphadenopathy. She is status post thoracentesis which cytology is still pending 06/13 She now represents with recurrent effusion, CTS has been consulted regarding pleurex drain. During her work-up she has been found to be positive for COVID. Review of Systems All systems: negative Constitutional: Reports as per HPI Past Medical History Past Medical History: Asthma, Diabetes Mellitus, GERD/Reflux Additional Past Medical History / Comment(s): broke L knee cap, L hand,R foot, L shoulder, Multiple ribs, R hand, R foot, L wrist, Nose. Branden cataract. kidney stones. plates L wrist. osteoporosis. History of Any Multi-Drug Resistant Organisms: None Reported Past Surgical History: Cholecystectomy Past Anesthesia/Blood Transfusion Reactions: No Reported Reaction Past Psychological History: No Psychological Hx Reported Smoking Status: Former smoker Past Alcohol Use History: None Reported Past Drug Use History: None Reported Medications and Allergies Home Medications Medication Instructions Recorded Confirmed Type Atorvastatin [Lipitor] 20 mg PO HS 08/12/16 06/18/20 History Levothyroxine Sodium [Synthroid] 100 mcg PO DAILY 08/12/16 06/18/20 History amLODIPine [Norvasc] 10 mg PO DAILY 08/12/16 06/18/20 History Metoclopramide HCl [Reglan] 5 mg PO TID PRN 04/08/20 06/18/20 History Exenatide Microspheres [Bydureon 2 mg SQ CUMMINGS 06/10/20 06/18/20 History Pen] Famotidine 40 mg PO DAILY 06/10/20 06/18/20 History Pantoprazole Sodium 40 mg PO HS 06/10/20 06/18/20 History Allergies Allergy/AdvReac Type Severity Reaction Status Date / Time No Known Allergies Allergy Verified 06/18/20 13:20 Physical Exam Vitals: Vital Signs Temp Pulse Resp BP Pulse Ox 06/18/20 20:51 20 06/18/20 20:49 101 F H 96 20 162/78 94 L 06/18/20 18:02 101 F H 96 20 149/74 94 L 06/18/20 16:41 94 L 06/18/20 15:24 100.9 F H 94 18 148/75 93 L 06/18/20 12:00 20 06/18/20 11:09 90 20 146/66 96 06/18/20 09:49 99.5 F 100 18 126/63 89 L Intake and Output 06/18/20 06/18/20 06/18/20 06:59 14:59 22:59 Other: Weight 58.967 kg - Constitutional General appearance: cooperative, no acute distress - EENT Eyes: EOMI ENT: hard of hearing, NA/AT - Respiratory Respiratory: bilateral: diminished, rhonchi - Cardiovascular Rhythm: regularly irregular - Gastrointestinal General gastrointestinal: soft - Integumentary Integumentary: pale - Neurologic inconsisent due to mental status - Musculoskeletal Musculoskeletal: generalized weakness - Psychiatric Alert x1-2 Results CBC & Chem 7: 06/19/20 04:29 06/19/20 04:29 Labs: Abnormal Lab Results - Last 24 Hours (Table) 06/18/20 06/18/20 06/18/20 Range/Units 11:03 11:03 12:02 Lymphocytes # 0.5 L (1.0-4.8) k/uL Sodium 136 L (137-145) mmol/L BUN 6 L (7-17) mg/dL Creatinine 0.50 L (0.52-1.04) mg/dL Glucose 179 H (74-99) mg/dL Albumin 3.4 L (3.5-5.0) g/dL Urine Protein 1+ H (Negative) Urine Glucose (UA) 1+ H (Negative) Urine Ketones Trace H (Negative) Ur Leukocyte Esterase Small H (Negative) Urine Bacteria Rare H (None) /hpf Hyaline Casts 3 H (0-2) /lpf Urine Mucus Few H (None) /hpf Coronavirus (PCR) (Not Detectd) 06/18/20 Range/Units 15:24 Lymphocytes # (1.0-4.8) k/uL Sodium (137-145) mmol/L BUN (7-17) mg/dL Creatinine (0.52-1.04) mg/dL Glucose (74-99) mg/dL Albumin (3.5-5.0) g/dL Urine Protein (Negative) Urine Glucose (UA) (Negative) Urine Ketones (Negative) Ur Leukocyte Esterase (Negative) Urine Bacteria (None) /hpf Hyaline Casts (0-2) /lpf Urine Mucus (None) /hpf Coronavirus (PCR) Detected A (Not Detectd) Assessment and Plan Plan: Assessment and Recommendations: 1. Right Lobular Lung Mass and Loculated Pleural Effusion: - Status Post Thoracentesis prelim consitent with adenocarcinoma - MRI Brain negative for metastatic disease - Now with recurrent pleural effusion, need for pleurex drain, CTS consult. - CT Chest Measures Lung Mass 5.4x4.4x6.3 = Status POst RUL lung mass biopsy per pulm - Await pathology for further recs and send for molecular testing next gen sequ, include PDL1 COVID POsitive Infection: - Supportive Care - ID Following. Thank you for allowing us to participate in the care of this patient, will await recovery of acute viral infection and pleural effusion control prior to recommendations for systemic treatment of new diagnosis of cancer.
--- NOTE | 2020-06-19 14:03 | XR ---
EXAMINATION TYPE: XR chest 1V DATE OF EXAM: 06/19/2020 HISTORY: Status post thoracentesis. COMPARISON: 06/19/2020 TECHNIQUE: Single view of the chest is submitted. FINDINGS: Demonstrated are scattered senescent parenchymal change. There is mass density right upper lobe. Improved aeration right lower lobe and the patient is status post thoracentesis. Basilar atelectasis and/or infiltrate. No evidence for pneumothorax. The heart is stable. Hilar and mediastinal structures are within normal limits. Degenerative changes are seen of the dorsal spine. IMPRESSION: 1. No evidence for pneumothorax.
[2020-06-19] MEDS: ENOXAPARIN 30 MG/0.3 ML SYRINGE SQ SCH (14:23)
--- NOTE | 2020-06-19 15:20 | P.PN ---
Subjective 82-year-old female was admitted for right-sided pleural effusion secondary to adenocarcinoma of the right lung. Patient had recurrent pleural effusion was evaluated by cardiothoracic surgery for Pleurx catheter placement since the patient ended up being diagnosed with Covid 19, they recommended regular paracentesis, patient underwent thoracentesis with removal of around 1.6 L of pleural fluid. Patient was also started treatment for Covid with the Decadron, vitamin C vitamin D3 and zinc. Patient is feeling much better today will be enough oxygen possibility of discharge tomorrow. Constitutional: Denied any fatigue denied any fever. Cardio vascular: denied any chest pain, palpitations Gastrointestinal denied any nausea vomiting Pulmonary: Denied any shortness of breath cough Neurologic denied any new focal deficits All inpatient medications were reviewed and appropriate changes in these medications as dictated in the interval history and assessment and plan. Objective - Vital Signs Vital signs: Vital Signs Temp 98 F 06/19/20 07:42 Pulse 100 06/19/20 13:39 Resp 18 06/19/20 13:39 BP 118/53 06/19/20 13:39 Pulse Ox 98 06/19/20 13:39 Intake & Output 06/18/20 06/19/20 06/19/20 18:59 06:59 18:59 Weight 58.967 kg - Exam PHYSICAL EXAMINATION: GENERAL: The patient is alert and oriented x3, not in any acute distress. Well developed, well nourished. HEENT: Pupils are round and equally reacting to light. EOMI. No scleral icterus. No conjunctival pallor. Normocephalic, atraumatic. No pharyngeal erythema. No thyromegaly. CARDIOVASCULAR: S1 and S2 present. No murmurs, rubs, or gallops. PULMONARY: Chest is clear to auscultation, no wheezing or crackles. ABDOMEN: Soft, nontender, nondistended, normoactive bowel sounds. No palpable organomegaly. MUSCULOSKELETAL: No joint swelling or deformity. EXTREMITIES: No cyanosis, clubbing, or pedal edema. NEUROLOGICAL: Gross neurological examination did not reveal any focal deficits. SKIN: No rashes. - Labs CBC & Chem 7: 06/19/20 04:29 06/19/20 04:29 Labs: Abnormal Lab Results - Last 24 Hours (Table) 06/18/20 06/19/20 06/19/20 Range/Units 15:24 04:29 04:29 RBC 3.53 L (4.10-5.20) X 10*6/uL Hgb 10.4 L (12.0-15.0) g/dL Hct 33.9 L (37.2-46.3) % MCHC 30.7 L (32.0-37.0) g/dL MPV 9.4 L (9.5-12.2) fL Carbon Dioxide 33 H (22-30) mmol/L BUN 5 L (7-17) mg/dL Creatinine 0.50 L (0.52-1.04) mg/dL Glucose 130 H (74-99) mg/dL Calcium 8.3 L (8.4-10.2) mg/dL Coronavirus (PCR) Detected A (Not Detectd) Assessment and Plan Plan: -Acute hypoxic respiratory failure: Secondary to right-sided pleural effusion patient has malignant pleural effusion recurrent pleural effusion because of which a thoracic surgery evaluated the patient as patient the is found to have Covid 19 and they recommended just a regular Thotacentesis and if this recurs then Pleurx catheter will be considered at that time. Patient is status post rm oval of 1.6 L of pleural fluid. -Covid 19 pneumonia -Adenocarcinoma of the right lung patient underwent workup for metastasis to the brain which was negative during her last hospitalization oncology was consulted as well -Type 2 diabetes mellitus -Hypertension -COPD without any acute exacerbation DVT prophylaxis with Lovenox
[2020-06-19] MEDS: ACETAMINOPHEN TAB 325 MG TAB PO PRN ×2 (15:37→22:34)
[2020-06-19] MEDS: ALBUTEROL HFA INHALER INHALATION PRN ×2 (16:10→19:49)
[2020-06-19] MEDS: guaiFENesin-DM 100-10MG/5ML 10 ML CUP PO PRN (16:19)
--- NOTE | 2020-06-19 17:18 | PCN ---
PROCEDURE NOTE PROCEDURE PERFORMED: Right-sided thoracentesis. PREOPERATIVE DIAGNOSIS: Right pleural effusion. POSTOPERATIVE DIAGNOSIS: Right pleural effusion. ANESTHESIA USED: 2 mL of 1% lidocaine. PROCEDURE DETAILS: The patient was placed in a sitting upright position, the area below the right scapula was prepared in a sterile fashion. Drapes were applied. Using the 26-gauge needle, the area was locally anesthetized at the level of the 8th intercostal space and tip of the scapula which was earlier localized by ultrasound. Then, a 26-gauge needle was inserted and advanced into the pleural space. Fluid was localized with a needle. A small tiny incision was made. A standard thoracentesis catheter and needle were used and advanced into the place at the same site and as soon as the fluid was obtained, the catheter was advanced out of the needle and the needle was pulled out of the pleural space. Freely flowing fluid was removed, roughly 1700 mL of dark yellow fluid was removed from the right pleural space and the fluid was not sent for any diagnostic studies. This is was earlier sent by Dr. Rodriguez. Procedure was well tolerated, chest x-ray showed no evidence of complications. MMODL / IJN: [id number] /
[2020-06-19 22:31] LABS: Glucose,Whole Blood 201 mg/dL (75-99)
[2020-06-19] MEDS: PANTOPRAZOLE 40 MG TABLET PO SCH (22:34)
[2020-06-19] MEDS: ATORVASTATIN 20 MG TAB PO SCH (22:34)
[2020-06-19] MEDS: INSULIN ASPART (NovoLOG) 100 UNIT/ML VIAL SQ SCH (22:34)
[2020-06-20] MEDS: guaiFENesin-DM 100-10MG/5ML 10 ML CUP PO PRN (00:10)
[2020-06-20] MEDS: LEVOTHYROXINE 100 MCG TAB PO SCH (06:06)
[2020-06-20 07:13] LABS: Glucose,Whole Blood 127 mg/dL (75-99)
[2020-06-20] MEDS: ALBUTEROL HFA INHALER INHALATION PRN ×4 (08:17→20:49)
[2020-06-20] MEDS: INSULIN ASPART (NovoLOG) 100 UNIT/ML VIAL SQ SCH ×4 (08:25→20:37)
[2020-06-20] MEDS: dexAMETHasone 2 MG TAB PO SCH (08:32)
[2020-06-20] MEDS: FAMOTIDINE 20 MG TAB PO SCH (08:32)
[2020-06-20] MEDS: ZINC SULFATE 220 MG CAP PO SCH (08:32)
[2020-06-20] MEDS: CHOLECALCIFEROL 25 MCG (1000 IU) TABLET PO SCH (08:32)
[2020-06-20] MEDS: ASCORBIC ACID 500 MG TAB PO SCH (08:33)
[2020-06-20] MEDS: amLODIPine 10 MG TAB PO SCH (08:33)
[2020-06-20] MEDS: ENOXAPARIN 30 MG/0.3 ML SYRINGE SQ SCH (08:33)
[2020-06-20] MEDS: ACETAMINOPHEN TAB 325 MG TAB PO PRN (08:47)
[2020-06-20 10:40] VITALS: BMI 21.6
[2020-06-20 11:45] LABS: Glucose,Whole Blood 236 mg/dL (75-99)
[2020-06-20 13:42] LABS: Basophils % (A) 0 %; Eosinophils % (A) 0 %; HCT 33.6 % (34.0-46.0); HGB 11.3 gm/dL (11.4-16.0); Lymphocytes # (A) 0.3 k/uL (1.0-4.8); Lymphocytes % (A) 5 %; MCH 30.1 pg (25.0-35.0); MCHC 33.5 g/dL (31.0-37.0); MCV 89.7 fL (80.0-100.0); Mean Platelet Volume 6.7; Monocytes # (A) 0.1 k/uL (0-1.0); Monocytes % (A) 3 %; Neutrophils % (A) 91 %; Platelet Count 242 k/uL (150-450); RBC 3.75 m/uL (3.80-5.40); RDW 13.6 % (11.5-15.5); WBC 5.5 k/uL (3.8-10.6)
[2020-06-20 14:03] LABS: ALT 16 U/L (4-34); AST 30 U/L (14-36); African American GFR (CKD) >90 (>60 ml/min/1.73 sqM); Albumin 2.9 g/dL (3.5-5.0); Alkaline Phosphatase 60 U/L (38-126); Anion Gap 6 mmol/L; Blood Urea Nitrogen 10 mg/dL (7-17); Calcium 7.7 mg/dL (8.4-10.2); Carbon Dioxide 27 mmol/L (22-30); Chloride 99 mmol/L (98-107); Globulin 2.9 g/dL; Glucose 285 mg/dL (74-99); Magnesium 1.7 mg/dL (1.6-2.3); Non-African American GFR(CKD) >90 (>60 ml/min/1.73 sqM); Sodium 132 mmol/L (137-145); Total Bilirubin 0.5 mg/dL (0.2-1.3); Total Protein 5.8 g/dL (6.3-8.2)
[2020-06-20] MEDS ORDERED: FUROSEMIDE 10 MG/ML 4 ML VIAL IV STA (14:11)
--- NOTE | 2020-06-20 16:02 | P.PN ---
Subjective Progress Note Date: 06/20/20 Principal diagnosis: CoVID 19 pneumonia, adenocarcinoma of the lung, pleural effusion 84-year-old female who presented to the emergency department on June 18, with chief complaints of increasing shortness of breath. The patient was recently discharged from the hospital about 4 days ago having had a pneumonia and pleural effusion. She had a right-sided thoracentesis. Also, on June 10, she underwent bronchoscopy with biopsy by Dr. Rodriguez. My nurse practitioner tells me that the pathology came back positive for adenocarcinoma. Some of the biopsies are currently pending. I'm not sure if the fluid was sent for cytology. The thoracentesis was done by interventional radiology. Anyway when she presented to the emergency department, her saturations are only 84% on room air. She was quite short of breath. She was coughing. She hasn't been feeling well for about 2 weeks now. She states that she tested positive for coronavirus just today. She apparently has a history of COPD/asthma, diabetes, acid reflux disease, and was also recently found to have a large mass in the right upper lobe. She also has a history of hypothyroidism, hyperlipidemia, and hyperten lora. White count is 5, he will become 0.4, hematocrit 33.9, and platelet count 209,000. Sodium 138, potassium 4.1, chlorides 101, CO2 33, anion gap 4, BUN 5, and creatinine 0.5. Urine was positive for leukocyte esterase, with rare bacteria, and 1 WBC. Chest x-ray shows a right-sided pleural effusion, with some basilar atelectasis and collapse. The pocket of fluid on the right side is 9.3 cm. The patient is seen today 06/20/2020 in follow-up on the regular medical floor. She is currently resting comfortably in bed. Awake and alert in no acute distress. Chest x-ray continues to revealed feel the right upper lobe mass which is confirmed adenocarcinoma. Improved aeration of the right lower lobe post thoracentesis. Bibasilar atelectasis. No pneumothorax. Repeat thoracentesis was performed yesterday with 1.7 L of dark yellow fluid removed. Plan was for Pleurx catheter placement however the patient is positive for CoVID 19. She remains on 6 L high flow nasal cannula to maintain O2 saturations in the 90s. White count 5.5. Hemoglobin 11.3. Lymphocytes 0.3. Sodium 132. Pot assium 4.0. Creatinine 0.46. She remains on Decadron, Lovenox, vitamin supplements. Objective - Vital Signs Vital signs: Vital Signs Temp 98.6 F 06/20/20 14:35 Pulse 87 06/20/20 14:35 Resp 18 06/20/20 14:35 BP 106/51 06/20/20 14:35 Pulse Ox 93 L 06/20/20 14:35 Intake & Output 06/19/20 06/20/20 06/20/20 18:59 06:59 18:59 Weight 58.967 kg 58.967 kg Other: # Voids 2 - Exam GENERAL EXAM: Alert, pleasant, frail 84-year-old female patient, on 6 L high fl ow nasal cannula comfortable in no apparent distress. HEAD: Normocephalic. EYES: Normal reaction of pupils, equal size. NOSE: Clear with pink turbinates. THROAT: No erythema or exudates. NECK: No masses, no JVD. CHEST: No chest wall deformity. LUNGS: Equal air entry with bibasilar crackles right greater than left. CVS: S1 and S2 normal with no audible murmur, regular rhythm. ABDOMEN: No hepatosplenomegaly, normal bowel sounds, no guarding or rigidity. SPINE: No scoliosis or deformity SKIN: No rashes CENTRAL NERVOUS SYSTEM: No focal deficits, tone is normal in all 4 extremities. EXTREMITIES: There is no peripheral edema. No clubbing, no cyanosis. Peripheral pulses are intact. - Labs CBC & Chem 7: 06/20/20 13:13 06/20/20 13:13 Labs: Abnormal Lab Results - Last 24 Hours (Table) 06/19/20 06/20/20 06/20/20 Range/Units 22:30 07:11 11:44 RBC (3.80-5.40) m/uL Hgb (11.4-16.0) gm/dL Hct (34.0-46.0) % Lymphocytes # (1.0-4.8) k/uL Sodium (137-145) mmol/L Creatinine (0.52-1.04) mg/dL Glucose (74-99) mg/dL POC Glucose (mg/dL) 201 H 127 H 236 H (75-99) mg/dL Calcium (8.4-10.2) mg/dL Total Protein (6.3-8.2) g/dL Albumin (3.5-5.0) g/dL 06/20/20 06/20/20 Range/Units 13:13 13:13 RBC 3.75 L (3.80-5.40) m/uL Hgb 11.3 L (11.4-16.0) gm/dL Hct 33.6 L (34.0-46.0) % Lymphocytes # 0.3 L (1.0-4.8) k/uL Sodium 132 L (137-145) mmol/L Creatinine 0.46 L (0.52-1.04) mg/dL Glucose 285 H (74-99) mg/dL POC Glucose (mg/dL) (75-99) mg/dL Calcium 7.7 L (8.4-10.2) mg/dL Total Protein 5.8 L (6.3-8.2) g/dL Albumin 2.9 L (3.5-5.0) g/dL Assessment and Plan Assessment: 1 Acute right acute hypoxemic respiratory failure secondary to acute CoVID 19 infection complicated by adenocarcinoma of the right lung, right sided pleural effusion. 2 Recurrent right-sided pleural effusion, status post thoracentesis on 06/19/2020 with 1.7 L of fluid removed 3 Recent diagnosis of lung cancer, adenocarcinoma post biopsy 06/11/2020 4 Hypertension 5 Hyperlipidemia 6 Diabetes mellitus 7 Chronic obstructive pulmonary disease/asthma 8 Gastroesophageal reflux disease 9 Of his history of chronic tobacco dependence Osteoporosis Plan: The patient was seen and evaluated by Dr. Velasquez Outside the window for Remdesivir Continue Decadron, Lovenox, vitamin supplements Lasix 40 mg IVP 1 Repeat chest x-ray, inflammatory markers in the a.m. Titrate down the FiO2 as tolerated Oncology has been consulted Consider Pleurx catheter once recovered from CoVID 19 We will continue to follow I, the cosigning physician, performed a history & physical examination of the patient. Lungs sounds with basilar crackles more so on the right lung base. Maintaining good O2 saturations in the 90s on 6 L high flow nasal cannula. I discussed the assessment and plan of care with my nurse practitioner, Isatu Turcios. I attest to the above note as dictated by her.
--- NOTE | 2020-06-20 17:00 | P.PN ---
Subjective 82-year-old female was admitted for right-sided pleural effusion secondary to adenocarcinoma of the right lung. Patient had recurrent pleural effusion was evaluated by cardiothoracic surgery for Pleurx catheter placement since the patient ended up being diagnosed with Covid 19, they recommended regular paracentesis, patient underwent thoracentesis with removal of around 1.6 L of pleural fluid. Patient was also started treatment for Covid with the Decadron, vitamin C vitamin D3 and zinc. Patient is feeling much better today will be enough oxygen possibility of discharge tomorrow. 06/20/2020 Patient requirements have gone up patient is presently a 60 describes and this probably secondary to Covid. Patient was started on multivitamins for Covid, Decadron. Patient is a dose of Lasix today. Patient is bit hyponatremic. Will monitor sodium Constitutional: Denied any fatigue denied any fever. Cardio vascular: denied any chest pain, palpitations Gastrointestinal denied any nausea vomiting Pulmonary: Denied any shortness of breath cough Neurologic denied any new focal deficits All inpatient medications were reviewed and appropriate changes in these medications as dictated in the interval history and assessment and plan. Objective - Vital Signs Vital signs: Vital Signs Temp 98.6 F 06/20/20 14:35 Pulse 87 06/20/20 14:35 Resp 18 06/20/20 14:35 BP 106/51 06/20/20 14:35 Pulse Ox 93 L 06/20/20 14:35 Intake & Output 06/19/20 06/20/20 06/20/20 18:59 06:59 18:59 Weight 58.967 kg 58.967 kg Other: # Voids 2 - Exam PHYSICAL EXAMINATION: GENERAL: The patient is alert and oriented x3, not in any acute distress. Well developed, well nourished. HEENT: Pupils are round and equally reacting to light. EOMI. No scleral icterus. No conjunctival pallor. Normocephalic, atraumatic. No pharyngeal erythema. No thyromegaly. CARDIOVASCULAR: S1 and S2 present. No murmurs, rubs, or gallops. PULMONARY: Chest is clear to auscultation, no wheezing or crackles. ABDOMEN: Soft, nontender, nondistended, normoactive bowel sounds. No palpable organomegaly. MUSCULOSKELETAL: No joint swelling or deformity. EXTREMITIES: No cyanosis, clubbing, or pedal edema. NEUROLOGICAL: Gross neurological examination did not reveal any focal deficits. SKIN: No rashes. Note: Because of COVID 19 isolation, some of the history and physical exam findings are indirect and obtained from nursing staff, and other physician examinations to avoid unnecessary contact with the patient - Labs CBC & Chem 7: 06/20/20 13:13 06/20/20 13:13 Labs: Abnormal Lab Results - Last 24 Hours (Table) 06/19/20 06/20/20 06/20/20 Range/Units 22:30 07:11 11:44 RBC (3.80-5.40) m/uL Hgb (11.4-16.0) gm/dL Hct (34.0-46.0) % Lymphocytes # (1.0-4.8) k/uL Sodium (137-145) mmol/L Creatinine (0.52-1.04) mg/dL Glucose (74-99) mg/dL POC Glucose (mg/dL) 201 H 127 H 236 H (75-99) mg/dL Calcium (8.4-10.2) mg/dL Total Protein (6.3-8.2) g/dL Albumin (3.5-5.0) g/dL 06/20/20 06/20/20 Range/Units 13:13 13:13 RBC 3.75 L (3.80-5.40) m/uL Hgb 11.3 L (11.4-16.0) gm/dL Hct 33.6 L (34.0-46.0) % Lymphocytes # 0.3 L (1.0-4.8) k/uL Sodium 132 L (137-145) mmol/L Creatinine 0.46 L (0.52-1.04) mg/dL Glucose 285 H (74-99) mg/dL POC Glucose (mg/dL) (75-99) mg/dL Calcium 7.7 L (8.4-10.2) mg/dL Total Protein 5.8 L (6.3-8.2) g/dL Albumin 2.9 L (3.5-5.0) g/dL Assessment and Plan Plan: -Acute hypoxic respiratory failure: Secondary to right-sided pleural effusion patient has malignant pleural effusion recurrent pleural effusion because of which a thoracic surgery evaluated the patient as patient the is found to have Covid 19 and they recommended just a regular Thotacentesis and if this recurs then Pleurx catheter will be considered at that time. Patient is status post rmoval of 1.6 L of pleural fluid. Patient is presently on 6 L of oxygen -Covid 19 pneumonia -Adenocarcinoma of the right lung patient underwent workup for metastasis to the brain which was negative during her last hospitalization oncology was consulted as well -Type 2 diabetes mellitus -Hypertension -COPD without any acute exacerbation DVT prophylaxis with Lovenox
[2020-06-20 17:07] LABS: Glucose,Whole Blood 374 mg/dL (75-99)
[2020-06-20] MEDS ORDERED: INSULIN ASPART (NovoLOG) 100 UNIT/ML VIAL SQ SCH (17:30)
[2020-06-20 20:23] LABS: Glucose,Whole Blood 385 mg/dL (75-99)
[2020-06-20] MEDS: PANTOPRAZOLE 40 MG TABLET PO SCH (20:37)
[2020-06-20] MEDS: ATORVASTATIN 20 MG TAB PO SCH (20:37)
[2020-06-21] MEDS: LEVOTHYROXINE 100 MCG TAB PO SCH (05:17)
[2020-06-21 07:16] LABS: Glucose,Whole Blood 148 mg/dL (75-99)
[2020-06-21] MEDS: ALBUTEROL HFA INHALER INHALATION PRN (07:40)
--- NOTE | 2020-06-21 07:50 | XR ---
EXAMINATION TYPE: XR chest 1V portable DATE OF EXAM: 06/21/2020 COMPARISON: Chest x-ray 06/19/2020 HISTORY: Covid pneumonia, right upper lobe lung mass TECHNIQUE: Single frontal view of the chest is obtained. FINDINGS: There is not a significant interval change accounting for differences in technique. IMPRESSION: Findings consistent with patient's history. Correlate for pneumonia, there is a pleural effusion, stable density in the right upper lobe.
[2020-06-21 08:08] LABS: Basophils % (A) 0 %; Eosinophils % (A) 0 %; HCT 30.4 % (34.0-46.0); HGB 10.5 gm/dL (11.4-16.0); Lymphocytes # (A) 0.4 k/uL (1.0-4.8); Lymphocytes % (A) 11 %; MCH 30.6 pg (25.0-35.0); MCHC 34.6 g/dL (31.0-37.0); MCV 88.4 fL (80.0-100.0); Mean Platelet Volume 6.8; Monocytes # (A) 0.2 k/uL (0-1.0); Monocytes % (A) 5 %; Neutrophils % (A) 84 %; Platelet Count 265 k/uL (150-450); RBC 3.44 m/uL (3.80-5.40); RDW 13.4 % (11.5-15.5); WBC 3.6 k/uL (3.8-10.6)
[2020-06-21] MEDS: CHOLECALCIFEROL 25 MCG (1000 IU) TABLET PO SCH (08:11)
[2020-06-21] MEDS: ASCORBIC ACID 500 MG TAB PO SCH (08:11)
[2020-06-21] MEDS: FAMOTIDINE 20 MG TAB PO SCH (08:11)
[2020-06-21] MEDS: INSULIN ASPART (NovoLOG) 100 UNIT/ML VIAL SQ SCH ×4 (08:12→21:12)
[2020-06-21] MEDS: ZINC SULFATE 220 MG CAP PO SCH (08:12)
[2020-06-21] MEDS: ENOXAPARIN 30 MG/0.3 ML SYRINGE SQ SCH ×2 (08:12→21:11)
[2020-06-21] MEDS: dexAMETHasone 2 MG TAB PO SCH (08:12)
[2020-06-21] MEDS: amLODIPine 10 MG TAB PO SCH (08:12)
[2020-06-21 08:37] LABS: ALT 15 U/L (4-34); AST 26 U/L (14-36); African American GFR (CKD) >90 (>60 ml/min/1.73 sqM); Albumin 2.6 g/dL (3.5-5.0); Albumin/Globulin Ratio 0.9; Alkaline Phosphatase 60 U/L (38-126); Anion Gap 3 mmol/L; Blood Urea Nitrogen 10 mg/dL (7-17); Calcium 7.8 mg/dL (8.4-10.2); Carbon Dioxide 32 mmol/L (22-30); Chloride 100 mmol/L (98-107); Globulin 2.8 g/dL; Glucose 150 mg/dL (74-99); LDH 701 U/L (313-618); Magnesium 1.9 mg/dL (1.6-2.3); Non-African American GFR(CKD) >90 (>60 ml/min/1.73 sqM); Potassium 3.5 mmol/L (3.5-5.1); Sodium 135 mmol/L (137-145); Total Bilirubin 0.3 mg/dL (0.2-1.3); Total Protein 5.4 g/dL (6.3-8.2)
[2020-06-21 11:32] LABS: Glucose,Whole Blood 179 mg/dL (75-99)
[2020-06-21] MEDS: guaiFENesin-DM 100-10MG/5ML 10 ML CUP PO PRN (12:42)
--- NOTE | 2020-06-21 14:00 | P.PN ---
Subjective 82-year-old female was admitted for right-sided pleural effusion secondary to adenocarcinoma of the right lung. Patient had recurrent pleural effusion was evaluated by cardiothoracic surgery for Pleurx catheter placement since the patient ended up being diagnosed with Covid 19, they recommended regular paracentesis, patient underwent thoracentesis with removal of around 1.6 L of pleural fluid. Patient was also started treatment for Covid with the Decadron, vitamin C vitamin D3 and zinc. Patient is feeling much better today will be enough oxygen possibility of discharge tomorrow. 06/20/2020 Patient requirements have gone up patient is presently a 60 describes and this probably secondary to Covid. Patient was started on multivitamins for Covid, Decadron. Patient is a dose of Lasix today. Patient is bit hyponatremic. Will monitor sodium. 06/23/2020 Serum sodium improved with the Lasix. Patient states she's feeling well but remains on 6 L of oxygen. Constitutional: Denied any fatigue denied any fever. Cardio vascular: denied any chest pain, palpitations Gastrointestinal denied any nausea vomiting Pulmonary: Denied any shortness of breath cough Neurologic denied any new focal deficits All inpatient medications were reviewed and appropriate changes in these medications as dictated in the interval history and assessment and plan. Objective - Vital Signs Vital signs: Vital Signs Temp 98.0 F 06/21/20 10:00 Pulse 81 06/21/20 10:00 Resp 20 06/21/20 10:00 BP 102/75 06/21/20 10:00 Pulse Ox 94 L 06/21/20 10:00 Intake & Output 06/20/20 06/21/20 06/21/20 18:59 06:59 18:59 Weight 58.967 kg Other: Voiding Method Toilet # Voids 4 1 # Bowel Movements 2 - Exam PHYSICAL EXAMINATION: GENERAL: The patient is alert and oriented x3, not in any acute distress. Well developed, well nourished. HEENT: Pupils are round and equally reacting to light. EOMI. No scleral icterus. No conjunctival pallor. Normocephalic, atraumatic. No pharyngeal erythema. No th yromegaly. CARDIOVASCULAR: S1 and S2 present. No murmurs, rubs, or gallops. PULMONARY: Chest is clear to auscultation, no wheezing or crackles. ABDOMEN: Soft, nontender, nondistended, normoactive bowel sounds. No palpable organomegaly. MUSCULOSKELETAL: No joint swelling or deformity. EXTREMITIES: No cyanosis, clubbing, or pedal edema. NEUROLOGICAL: Gross neurological examination did not reveal any focal deficits. SKIN: No rashes. Note: Because of COVID 19 isolation, some of the history and physical exam findings are indirect and obtained from nursing staff, and other physician examinations to avoid unnecessary contact with the patient - Labs CBC & Chem 7: 06/21/20 07:24 06/21/20 07:24 Labs: Abnormal Lab Results - Last 24 Hours (Table) 06/20/20 06/20/20 06/20/20 Range/Units 13:13 16:46 20:21 WBC (3.8-10.6) k/uL RBC (3.80-5.40) m/uL Hgb (11.4-16.0) gm/dL Hct (34.0-46.0) % Lymphocytes # (1.0-4.8) k/uL D-Dimer (<0.60) mg/L FEU Sodium 132 L (137-145) mmol/L Carbon Dioxide (22-30) mmol/L Creatinine 0.46 L (0.52-1.04) mg/dL Glucose 285 H (74-99) mg/dL POC Glucose (mg/dL) 374 H 385 H (75-99) mg/dL Calcium 7.7 L (8.4-10.2) mg/dL Lactate Dehydrogenase (313-618) U/L C-Reactive Protein (<10.0) mg/L Total Protein 5.8 L (6.3-8.2) g/dL Albumin 2.9 L (3.5-5.0) g/dL 06/21/20 06/21/20 06/21/20 Range/Units 07:14 07:24 07:24 WBC 3.6 L (3.8-10.6) k/uL RBC 3.44 L (3.80-5.40) m/uL Hgb 10.5 L (11.4-16.0) gm/dL Hct 30.4 L (34.0-46.0) % Lymphocytes # 0.4 L (1.0-4.8) k/uL D-Dimer (<0.60) mg/L FEU Sodium 135 L (137-145) mmol/L Carbon Dioxide 32 H (22-30) mmol/L Creatinine 0.51 L (0.52-1.04) mg/dL Glucose 150 H (74-99) mg/dL POC Glucose (mg/dL) 148 H (75-99) mg/dL Calcium 7.8 L (8.4-10.2) mg/dL Lactate Dehydrogenase 701 H (313-618) U/L C-Reactive Protein 44.0 H (<10.0) mg/L Total Protein 5.4 L (6.3-8.2) g/dL Albumin 2.6 L (3.5-5.0) g/dL 06/21/20 06/21/20 Range/Units 07:24 11:31 WBC (3.8-10.6) k/uL RBC (3.80-5.40) m/uL Hgb (11.4-16.0) gm/dL Hct (34.0-46.0) % Lymphocytes # (1.0-4.8) k/uL D-Dimer 5.44 H (<0.60) mg/L FEU Sodium (137-145) mmol/L Carbon Dioxide (22-30) mmol/L Creatinine (0.52-1.04) mg/dL Glucose (74-99) mg/dL POC Glucose (mg/dL) 179 H (75-99) mg/dL Calcium (8.4-10.2) mg/dL Lactate Dehydrogenase (313-618) U/L C-Reactive Protein (<10.0) mg/L Total Protein (6.3-8.2) g/dL Albumin (3.5-5.0) g/dL Assessment and Plan Plan: -Acute hypoxic respiratory failure: Secondary to right-sided pleural effusion patient has malignant pleural effusion recurrent pleural effusion because of which a thoracic surgery evaluated the patient as patient the is found to have Covid 19 and they recommended just a regular Thotacentesis and if this recurs then Pleurx catheter will be considered at that time. Patient is status post rmoval of 1.6 L of pleural fluid. Patient is presently on 6 L of oxygen -Covid 19 pneumonia leading to hypoxic respiratory failure -Adenocarcinoma of the right lung patient underwent workup for metastasis to the brain which was negative during her last hospitalization oncology evaluated the patient. -Hypervolemic hyponatremia improved with IV Lasix, may have diastolic dysfunction with acute exacerbation. -Type 2 diabetes mellitus -Hypertension -COPD without any acute exacerbation DVT prophylaxis with Lovenox
--- NOTE | 2020-06-21 16:29 | P.PN ---
Subjective Progress Note Date: 06/21/20 Principal diagnosis: CoVID 19 pneumonia, adenocarcinoma of the lung, pleural effusion 84-year-old female who presented to the emergency department on June 18, with chief complaints of increasing shortness of breath. The patient was recently discharged from the hospital about 4 days ago having had a pneumonia and pleural effusion. She had a right-sided thoracentesis. Also, on June 10, she underwent bronchoscopy with biopsy by Dr. Rodriguez. My nurse practitioner tells me that the pathology came back positive for adenocarcinoma. Some of the biopsies are currently pending. I'm not sure if the fluid was sent for cytology. The thoracentesis was done by interventional radiology. Anyway when she presented to the emergency department, her saturations are only 84% on room air. She was quite short of breath. She was coughing. She hasn't been feeling well for about 2 weeks now. She states that she tested positive for coronavirus just today. She apparently has a history of COPD/asthma, diabetes, acid reflux disease, and was also recently found to have a large mass in the right upper lobe. She also has a history of hypothyroidism, hyperlipidemia, and hyperten lora. White count is 5, he will become 0.4, hematocrit 33.9, and platelet count 209,000. Sodium 138, potassium 4.1, chlorides 101, CO2 33, anion gap 4, BUN 5, and creatinine 0.5. Urine was positive for leukocyte esterase, with rare bacteria, and 1 WBC. Chest x-ray shows a right-sided pleural effusion, with some basilar atelectasis and collapse. The pocket of fluid on the right side is 9.3 cm. The patient is seen today 06/20/2020 in follow-up on the regular medical floor. She is currently resting comfortably in bed. Awake and alert in no acute distress. Chest x-ray continues to revealed feel the right upper lobe mass which is confirmed adenocarcinoma. Improved aeration of the right lower lobe post thoracentesis. Bibasilar atelectasis. No pneumothorax. Repeat thoracentesis was performed yesterday with 1.7 L of dark yellow fluid removed. Plan was for Pleurx catheter placement however the patient is positive for CoVID 19. She remains on 6 L high flow nasal cannula to maintain O2 saturations in the 90s. White count 5.5. Hemoglobin 11.3. Lymphocytes 0.3. Sodium 132. Pot assium 4.0. Creatinine 0.46. She remains on Decadron, Lovenox, vitamin supplements. The patient is seen today 06/21/2020 in follow-up on the regular medical floor. She is awake and alert in no acute distress. Currently resting fairly comfortably in bed. Doing a little better today compared to yesterday. Less short of breath. Feeling a bit stronger. Down to 4 L nasal cannula and maintaining O2 saturations in the 90s. Chest x-ray showing stable density in the right upper lobe. There is some recurrent effusion. Some increased density of the right lower lobe. White count 3.6. Hemoglobin 10.5. Lymphocytes 0.4. D-dimer 5.44. Sodium 135. Potassium 2.5. Creatinine 0.51. LDH 701. C- reactive protein 44. She is on Lovenox 30 mg daily, dexamethasone, vitamin supplements. Objective - Vital Signs Vital signs: Vital Signs Temp 98.6 F 06/21/20 14:00 Pulse 86 06/21/20 14:00 Resp 19 06/21/20 14:00 BP 120/59 06/21/20 14:00 Pulse Ox 94 L 06/21/20 15:51 Intake & Output 06/20/20 06/21/20 06/21/20 18:59 06:59 18:59 Weight 58.967 kg Other: Voiding Method Toilet # Voids 4 1 # Bowel Movements 2 - Exam GENERAL EXAM: Alert, pleasant, frail 84-year-old female patient, on 4 L high flow nasal cannula comfortable in no apparent distress. HEAD: Normocephalic. EYES: Normal reaction of pupils, equal size. NOSE: Clear with pink turbinates. THROAT: No erythema or exudates. NECK: No masses, no JVD. CHEST: No chest wall deformity. LUNGS: Equal air entry with bibasilar crackles right greater than left. CVS: S1 and S2 normal with no audible murmur, regular rhythm. ABDOMEN: No hepatosplenomegaly, normal bowel sounds, no guarding or rigidity. SPINE: No scoliosis or deformity SKIN: No rashes CENTRAL NERVOUS SYSTEM: No focal deficits, tone is normal in all 4 extremities. EXTREMITIES: There is no peripheral edema. No clubbing, no cyanosis. Peripheral pulses are intact. - Labs CBC & Chem 7: 06/21/20 07:24 06/21/20 07:24 Labs: Abnormal Lab Results - Last 24 Hours (Table) 06/20/20 06/20/20 06/21/20 Range/Units 16:46 20:21 07:14 WBC (3.8-10.6) k/uL RBC (3.80-5.40) m/uL Hgb (11.4-16.0) gm/dL Hct (34.0-46.0) % Lymphocytes # (1.0-4.8) k/uL D-Dimer (<0.60) mg/L FEU Sodium (137-145) mmol/L Carbon Dioxide (22-30) mmol/L Creatinine (0.52-1.04) mg/dL Glucose (74-99) mg/dL POC Glucose (mg/dL) 374 H 385 H 148 H (75-99) mg/dL Calcium (8.4-10.2) mg/dL Lactate Dehydrogenase (313-618) U/L C-Reactive Protein (<10.0) mg/L Total Protein (6.3-8.2) g/dL Albumin (3.5-5.0) g/dL 06/21/20 06/21/20 06/21/20 Range/Units 07:24 07:24 07:24 WBC 3.6 L (3.8-10.6) k/uL RBC 3.44 L (3.80-5.40) m/uL Hgb 10.5 L (11.4-16.0) gm/dL Hct 30.4 L (34.0-46.0) % Lymphocytes # 0.4 L (1.0-4.8) k/uL D-Dimer 5.44 H (<0.60) mg/L FEU Sodium 135 L (137-145) mmol/L Carbon Dioxide 32 H (22-30) mmol/L Creatinine 0.51 L (0.52-1.04) mg/dL Glucose 150 H (74-99) mg/dL POC Glucose (mg/dL) (75-99) mg/dL Calcium 7.8 L (8.4-10.2) mg/dL Lactate Dehydrogenase 701 H (313-618) U/L C-Reactive Protein 44.0 H (<10.0) mg/L Total Protein 5.4 L (6.3-8.2) g/dL Albumin 2.6 L (3.5-5.0) g/dL 06/21/20 Range/Units 11:31 WBC (3.8-10.6) k/uL RBC (3.80-5.40) m/uL Hgb (11.4-16.0) gm/dL Hct (34.0-46.0) % Lymphocytes # (1.0-4.8) k/uL D-Dimer (<0.60) mg/L FEU Sodium (137-145) mmol/L Carbon Dioxide (22-30) mmol/L Creatinine (0.52-1.04) mg/dL Glucose (74-99) mg/dL POC Glucose (mg/dL) 179 H (75-99) mg/dL Calcium (8.4-10.2) mg/dL Lactate Dehydrogenase (313-618) U/L C-Reactive Protein (<10.0) mg/L Total Protein (6.3-8.2) g/dL Albumin (3.5-5.0) g/dL Assessment and Plan Assessment: 1 Acute right acute hypoxemic respiratory failure secondary to acute CoVID 19 infection complicated by adenocarcinoma of the right lung, right sided pleural effusion. 2 Recurrent right-sided pleural effusion, status post thoracentesis on 06/19/2020 with 1.7 L of fluid removed 3 Recent diagnosis of lung cancer, adenocarcinoma post biopsy 06/11/2020 4 Hypertension 5 Hyperlipidemia 6 Diabetes mellitus 7 Chronic obstructive pulmonary disease/asthma 8 Gastroesophageal reflux disease 9 Of his history of chronic tobacco dependence Osteoporosis Plan: The patient was seen and evaluated by Dr. Velasquez Chest x-ray and labs reviewed Increased density of the right lower lobe, add ceftriaxone and azithromycin Check pro calcitonin, if normal will discontinue antibiotics Increased Lovenox due to elevated d-dimer Continue Decadron, vitamin supplements Continue to titrate the FiO2 as tolerated Consider Pleurx catheter once recovered from CoVID 19 We will continue to follow I, the cosigning physician, performed a history & physical examination of the patient. Lungs sounds with basilar crackles more so on the right lung base. Maintaining good O2 saturations in the 90s on 4 L high flow nasal cannula. I discussed the assessment and plan of care with my nurse practitioner, Isatu Turcios. I attest to the above note as dictated by her.
[2020-06-21 16:39] LABS: Glucose,Whole Blood 318 mg/dL (75-99)
[2020-06-21] MEDS: AZITHROMYCIN 500 MG TAB PO SCH (16:52)
--- NOTE | 2020-06-21 17:48 | P.PN ---
Subjective Progress Note Date: 06/20/20 Principal diagnosis: Adenocarcinoma, COVID Status post Thoracentesis, Temp today 99.9, she is hypoxic on 6L saturation 90%. Objective - Vital Signs Vital signs: Vital Signs Temp 99.9 F H 06/20/20 09:15 Pulse 94 06/20/20 09:15 Resp 18 06/20/20 09:15 BP 146/63 06/20/20 09:15 Pulse Ox 90 L 06/20/20 09:15 Intake & Output 06/19/20 06/20/20 06/20/20 18:59 06:59 18:59 Weight 58.967 kg 58.967 kg Other: # Voids 2 - Labs CBC & Chem 7: 06/21/20 07:24 06/21/20 07:24 Labs: Abnormal Lab Results - Last 24 Hours (Table) 06/19/20 06/20/20 06/20/20 Range/Units 22:30 07:11 11:44 POC Glucose (mg/dL) 201 H 127 H 236 H (75-99) mg/dL Assessment and Plan Plan: Assessment and Recommendations: 1. Right Lobular Lung Mass and Loculated Pleural Effusion: - Status Post Thoracentesis prelim consitent with adenocarcinoma - MRI Brain negative for metastatic disease - Now with recurrent pleural effusion, need for pleurex drain, CTS consult. - CT Chest Measures Lung Mass 5.4x4.4x6.3 = Status POst RUL lung mass biopsy per pulm - Path positive for adenocarcinoma recs and send for molecular testing next gen sequ, include PDL1 - Await recovery of acute hospital illness and follow-upafter COVID POsitive Infection: - Supportive Care - ID Following.
[2020-06-21 20:38] LABS: Glucose,Whole Blood 140 mg/dL (75-99)
[2020-06-21] MEDS: ATORVASTATIN 20 MG TAB PO SCH (21:12)
[2020-06-21] MEDS: PANTOPRAZOLE 40 MG TABLET PO SCH (21:12)
[2020-06-22] MEDS: guaiFENesin-DM 100-10MG/5ML 10 ML CUP PO PRN ×3 (02:52→17:29)
[2020-06-22] MEDS: LEVOTHYROXINE 100 MCG TAB PO SCH (06:14)
[2020-06-22 07:09] LABS: Glucose,Whole Blood 166 mg/dL (75-99)
[2020-06-22] MEDS: INSULIN ASPART (NovoLOG) 100 UNIT/ML VIAL SQ SCH ×4 (07:58→21:13)
[2020-06-22 08:22] LABS: African American GFR (CKD) >90 (>60 ml/min/1.73 sqM); Anion Gap 3 mmol/L; Blood Urea Nitrogen 12 mg/dL (7-17); Calcium 7.6 mg/dL (8.4-10.2); Carbon Dioxide 32 mmol/L (22-30); Chloride 101 mmol/L (98-107); Glucose 171 mg/dL (74-99); Non-African American GFR(CKD) >90 (>60 ml/min/1.73 sqM); Potassium 4.2 mmol/L (3.5-5.1); Sodium 136 mmol/L (137-145)
[2020-06-22] MEDS: ALBUTEROL HFA INHALER INHALATION PRN ×4 (08:25→20:45)
[2020-06-22] MEDS: ENOXAPARIN 30 MG/0.3 ML SYRINGE SQ SCH ×2 (09:46→21:14)
[2020-06-22] MEDS: ZINC SULFATE 220 MG CAP PO SCH (09:46)
[2020-06-22] MEDS: FAMOTIDINE 20 MG TAB PO SCH (09:46)
[2020-06-22] MEDS: ASCORBIC ACID 500 MG TAB PO SCH (09:47)
[2020-06-22] MEDS: AZITHROMYCIN 500 MG TAB PO SCH (09:47)
[2020-06-22] MEDS: CHOLECALCIFEROL 25 MCG (1000 IU) TABLET PO SCH (09:47)
[2020-06-22] MEDS: dexAMETHasone 2 MG TAB PO SCH (09:47)
[2020-06-22] MEDS: amLODIPine 10 MG TAB PO SCH (09:47)
[2020-06-22 11:47] LABS: Glucose,Whole Blood 146 mg/dL (75-99)
[2020-06-22] MEDS ORDERED: IPRATROPIUM-ALBUTEROL 3 ML NEB INHALATION PRN (15:28)
--- NOTE | 2020-06-22 15:29 | P.PN ---
Subjective 82-year-old female was admitted for right-sided pleural effusion secondary to adenocarcinoma of the right lung. Patient had recurrent pleural effusion was evaluated by cardiothoracic surgery for Pleurx catheter placement since the patient ended up being diagnosed with Covid 19, they recommended regular paracentesis, patient underwent thoracentesis with removal of around 1.6 L of pleural fluid. Patient was also started treatment for Covid with the Decadron, vitamin C vitamin D3 and zinc. Patient is feeling much better today will be enough oxygen possibility of discharge tomorrow. 06/20/2020 Patient requirements have gone up patient is presently a 60 describes and this probably secondary to Covid. Patient was started on multivitamins for Covid, Decadron. Patient is a dose of Lasix today. Patient is bit hyponatremic. Will monitor sodium. 06/21/2020 Serum sodium improved with the Lasix. Patient states she's feeling well but remains on 6 L of oxygen. 06/22/2020 Patient remains on 8 L of oxygen d-dimer is highly elevated because of which are patient's Lovenox was changed to twice a day. Patient has an increased density in the right lower lobe because of which patient was started on antibiotics for pneumonia that is Rocephin and azithromycin patient may have sinus secondary bacterial infection. Constitutional: Denied any fatigue denied any fever. Cardio vascular: denied any chest pain, palpitations Gastrointestinal denied any nausea vomiting Pulmonary: Denied any shortness of breath cough Neurologic denied any new focal deficits All inpatient medications were reviewed and appropriate changes in these medications as dictated in the interval history and assessment and plan. Objective - Vital Signs Vital signs: Vital Signs Temp 98.0 F 06/22/20 14:00 Pulse 91 06/22/20 14:00 Resp 20 06/22/20 14:00 BP 113/66 06/22/20 14:00 Pulse Ox 87 L 06/22/20 14:00 Intake & Output 06/21/20 06/22/20 06/22/20 18:59 06:59 18:59 Intake Total 950 Balance 950 Weight 58.967 kg Intake: Oral 950 Other: # Voids 6 5 - Exam PHYSICAL EXAMINATION: GENERAL: The patient is alert and oriented x3, not in any acute distress. Well developed, well nourished. HEENT: Pupils are round and equally reacting to light. EOMI. No scleral icterus. No conjunctival pallor. Normocephalic, atraumatic. No pharyngeal erythema. No thyromegaly. CARDIOVASCULAR: S1 and S2 present. No murmurs, rubs, or gallops. PULMONARY: Patient has significant wheezing on exam ABDOMEN: Soft, nontender, nondistended, normoactive bowel sounds. No palpable organomegaly. MUSCULOSKELETAL: No joint swelling or deformity. EXTREMITIES: No cyanosis, clubbing, or pedal edema. NEUROLOGICAL: Gross neurological examination did not reveal any focal deficits. SKIN: No rashes. Note: Because of COVID 19 isolation, some of the history and physical exam findings are indirect and obtained from nursing staff, and other physician examinations to avoid unnecessary contact with the patient - Labs CBC & Chem 7: 06/21/20 07:24 06/22/20 06:56 Labs: Abnormal Lab Results - Last 24 Hours (Table) 06/21/20 06/21/20 06/21/20 Range/Units 07:24 16:38 20:35 Sodium (137-145) mmol/L Carbon Dioxide (22-30) mmol/L Creatinine (0.52-1.04) mg/dL Glucose (74-99) mg/dL POC Glucose (mg/dL) 318 H 140 H (75-99) mg/dL Calcium (8.4-10.2) mg/dL Procalcitonin 0.22 H (0.02-0.09) ng/mL 06/22/20 06/22/20 06/22/20 Range/Units 06:56 07:07 11:45 Sodium 136 L (137-145) mmol/L Carbon Dioxide 32 H (22-30) mmol/L Creatinine 0.51 L (0.52-1.04) mg/dL Glucose 171 H (74-99) mg/dL POC Glucose (mg/dL) 166 H 146 H (75-99) mg/dL Calcium 7.6 L (8.4-10.2) mg/dL Procalcitonin (0.02-0.09) ng/mL Assessment and Plan Plan: -Acute hypoxic respiratory failure: Secondary to right-sided pleural effusion patient has malignant pleural effusion recurrent pleural effusion because of which a thoracic surgery evaluated the patient as patient the is found to have Covid 19 and they recommended just a regular Thotacentesis and if this recurs then Pleurx catheter will be considered at that time. Patient is status post rmoval of 1.6 L of pleural fluid. Patient is presently on 6 L of oxygen -Covid 19 pneumonia leading to hypoxic respiratory failure -Adenocarcinoma of the right lung patient underwent workup for metastasis to the brain which was negative during her last hospitalization oncology evaluated the patient. -Hypervolemic hyponatremia improved with IV Lasix, may have diastolic dysf unction with acute exacerbation. Presently appears to be euvolemic -Type 2 diabetes mellitus -Hypertension -COPD with acute exacerbation patient can will be continued on inhalational treatments. Patient will be switched to DuoNeb from albuterol inhalation and patient is already on Decadron DVT prophylaxis with Lovenox
[2020-06-22] MEDS ORDERED: IPRATROPIUM 0.5 MG/2.5 ML NEBU INHALATION PRN (15:30)
--- NOTE | 2020-06-22 16:17 | P.PN ---
Subjective Progress Note Date: 06/22/20 Principal diagnosis: CoVID 19 pneumonia, adenocarcinoma of the lung, pleural effusion 84-year-old female who presented to the emergency department on June 18, with chief complaints of increasing shortness of breath. The patient was recently discharged from the hospital about 4 days ago having had a pneumonia and pleural effusion. She had a right-sided thoracentesis. Also, on June 10, she underwent bronchoscopy with biopsy by Dr. Rodriguez. My nurse practitioner tells me that the pathology came back positive for adenocarcinoma. Some of the biopsies are currently pending. I'm not sure if the fluid was sent for cytology. The thoracentesis was done by interventional radiology. Anyway when she presented to the emergency department, her saturations are only 84% on room air. She was quite short of breath. She was coughing. She hasn't been feeling well for about 2 weeks now. She states that she tested positive for coronavirus just today. She apparently has a history of COPD/asthma, diabetes, acid reflux disease, and was also recently found to have a large mass in the right upper lobe. She also has a history of hypothyroidism, hyperlipidemia, and hyperten lora. White count is 5, he will become 0.4, hematocrit 33.9, and platelet count 209,000. Sodium 138, potassium 4.1, chlorides 101, CO2 33, anion gap 4, BUN 5, and creatinine 0.5. Urine was positive for leukocyte esterase, with rare bacteria, and 1 WBC. Chest x-ray shows a right-sided pleural effusion, with some basilar atelectasis and collapse. The pocket of fluid on the right side is 9.3 cm. The patient is seen today 06/20/2020 in follow-up on the regular medical floor. She is currently resting comfortably in bed. Awake and alert in no acute distress. Chest x-ray continues to revealed feel the right upper lobe mass which is confirmed adenocarcinoma. Improved aeration of the right lower lobe post thoracentesis. Bibasilar atelectasis. No pneumothorax. Repeat thoracentesis was performed yesterday with 1.7 L of dark yellow fluid removed. Plan was for Pleurx catheter placement however the patient is positive for CoVID 19. She remains on 6 L high flow nasal cannula to maintain O2 saturations in the 90s. White count 5.5. Hemoglobin 11.3. Lymphocytes 0.3. Sodium 132. Pot assium 4.0. Creatinine 0.46. She remains on Decadron, Lovenox, vitamin supplements. The patient is seen today 06/21/2020 in follow-up on the regular medical floor. She is awake and alert in no acute distress. Currently resting fairly comfortably in bed. Doing a little better today compared to yesterday. Less short of breath. Feeling a bit stronger. Down to 4 L nasal cannula and maintaining O2 saturations in the 90s. Chest x-ray showing stable density in the right upper lobe. There is some recurrent effusion. Some increased density of the right lower lobe. White count 3.6. Hemoglobin 10.5. Lymphocytes 0.4. D-dimer 5.44. Sodium 135. Potassium 2.5. Creatinine 0.51. LDH 701. C- reactive protein 44. She is on Lovenox 30 mg daily, dexamethasone, vitamin supplements. The patient is seen today 06/22/2020 in follow-up on the regular medical floor. She is currently up ambulating in her room. Awake and alert in no acute distress. Breathing better today compared to yesterday. She is currently on 4 liters per minute per nasal cannula. She remains on ceftriaxone and azit hromycin. Continued on Lovenox, dexamethasone, vitamin supplements. Sodium 136. Potassium 4.2. Creatinine 0.51. Glucose 171. Objective - Vital Signs Vital signs: Vital Signs Temp 98.0 F 06/22/20 14:00 Pulse 91 06/22/20 14:00 Resp 20 06/22/20 14:00 BP 113/66 06/22/20 14:00 Pulse Ox 90 L 06/22/20 15:53 Intake & Output 06/21/20 06/22/20 06/22/20 18:59 06:59 18:59 Intake Total 950 Balance 950 Weight 58.967 kg Intake: Oral 950 Other: # Voids 6 5 - Exam GENERAL EXAM: Alert, pleasant, frail 84-year-old female patient, on 4 L high f low nasal cannula comfortable in no apparent distress. HEAD: Normocephalic. EYES: Normal reaction of pupils, equal size. NOSE: Clear with pink turbinates. THROAT: No erythema or exudates. NECK: No masses, no JVD. CHEST: No chest wall deformity. LUNGS: Equal air entry with bibasilar crackles right greater than left. CVS: S1 and S2 normal with no audible murmur, regular rhythm. ABDOMEN: No hepatosplenomegaly, normal bowel sounds, no guarding or rigidity. SPINE: No scoliosis or deformity SKIN: No rashes CENTRAL NERVOUS SYSTEM: No focal deficits, tone is normal in all 4 extremities. EXTREMITIES: There is no peripheral edema. No clubbing, no cyanosis. Peripheral pulses are intact. - Labs CBC & Chem 7: 06/21/20 07:24 06/22/20 06:56 Labs: Abnormal Lab Results - Last 24 Hours (Table) 06/21/20 06/21/20 06/21/20 Range/Units 07:24 16:38 20:35 Sodium (137-145) mmol/L Carbon Dioxide (22-30) mmol/L Creatinine (0.52-1.04) mg/dL Glucose (74-99) mg/dL POC Glucose (mg/dL) 318 H 140 H (75-99) mg/dL Calcium (8.4-10.2) mg/dL Procalcitonin 0.22 H (0.02-0.09) ng/mL 06/22/20 06/22/20 06/22/20 Range/Units 06:56 07:07 11:45 Sodium 136 L (137-145) mmol/L Carbon Dioxide 32 H (22-30) mmol/L Creatinine 0.51 L (0.52-1.04) mg/dL Glucose 171 H (74-99) mg/dL POC Glucose (mg/dL) 166 H 146 H (75-99) mg/dL Calcium 7.6 L (8.4-10.2) mg/dL Procalcitonin (0.02-0.09) ng/mL Assessment and Plan Assessment: 1 Acute right acute hypoxemic respiratory failure secondary to acute CoVID 19 in fection complicated by adenocarcinoma of the right lung, right sided pleural effusion. 2 Recurrent right-sided pleural effusion, status post thoracentesis on 06/19/2020 with 1.7 L of fluid removed 3 Recent diagnosis of lung cancer, adenocarcinoma post biopsy 06/11/2020 4 Hypertension 5 Hyperlipidemia 6 Diabetes mellitus 7 Chronic obstructive pulmonary disease/asthma 8 Gastroesophageal reflux disease 9 Of his history of chronic tobacco dependence Osteoporosis Plan: The patient was seen and evaluated by Dr. Ron Continue Decadron, Lovenox, vitamin supplements Continue antibiotics Continue to titrate the FiO2 as tolerated Consider Pleurx catheter once recovered from CoVID 19 We will continue to follow I, the cosigning physician, performed a history & physical examination of the patient. Lungs sounds with basilar crackles more so on the right lung base. Maintaining good O2 saturations in the 90s on 4 L high flow nasal cannula. I discussed the assessment and plan of care with my nurse practitioner, Isatu Turcios. I attest to the above note as dictated by her.
[2020-06-22 16:41] LABS: Glucose,Whole Blood 231 mg/dL (75-99)
[2020-06-22] MEDS ORDERED: BUDESONIDE 0.5 MG/2 ML NEBU INHALATION SCH (20:00)
[2020-06-22] MEDS: FLUTICASONE 110 MCG INHALER INHALATION SCH (20:46)
[2020-06-22 21:05] LABS: Glucose,Whole Blood 303 mg/dL (75-99)
[2020-06-22] MEDS: ATORVASTATIN 20 MG TAB PO SCH (21:13)
[2020-06-22] MEDS: PANTOPRAZOLE 40 MG TABLET PO SCH (21:13)
[2020-06-23] MEDS: LEVOTHYROXINE 100 MCG TAB PO SCH (05:25)
[2020-06-23 07:20] LABS: Glucose,Whole Blood 150 mg/dL (75-99)
[2020-06-23] MEDS: INSULIN ASPART (NovoLOG) 100 UNIT/ML VIAL SQ SCH ×4 (07:43→21:21)
[2020-06-23] MEDS: AZITHROMYCIN 500 MG TAB PO SCH (07:44)
[2020-06-23] MEDS: ASCORBIC ACID 500 MG TAB PO SCH (07:44)
[2020-06-23] MEDS: dexAMETHasone 2 MG TAB PO SCH (07:44)
[2020-06-23] MEDS: FAMOTIDINE 20 MG TAB PO SCH (07:44)
[2020-06-23] MEDS: ZINC SULFATE 220 MG CAP PO SCH (07:44)
[2020-06-23] MEDS: amLODIPine 10 MG TAB PO SCH (07:44)
[2020-06-23] MEDS: ENOXAPARIN 30 MG/0.3 ML SYRINGE SQ SCH ×2 (07:44→21:21)
[2020-06-23] MEDS: CHOLECALCIFEROL 25 MCG (1000 IU) TABLET PO SCH (07:44)
[2020-06-23] MEDS ORDERED: EXENATIDE MICROSPHERES 2 MG/0.65 ML SQ SCH (09:00)
[2020-06-23] MEDS: ALBUTEROL HFA INHALER INHALATION PRN ×3 (09:09→19:52)
[2020-06-23] MEDS: FLUTICASONE 110 MCG INHALER INHALATION SCH ×2 (09:09→19:52)
[2020-06-23] MEDS: guaiFENesin-DM 100-10MG/5ML 10 ML CUP PO PRN ×2 (09:36→21:22)
[2020-06-23 11:32] LABS: Glucose,Whole Blood 189 mg/dL (75-99)
[2020-06-23] MEDS: NYSTATIN 100,000 UNIT/ML SUSP 500,000 UNIT/5 ML CUP PO SCH ×3 (13:25→21:21)
--- NOTE | 2020-06-23 16:07 | P.PN ---
Subjective Progress Note Date: 06/23/20 Principal diagnosis: CoVID 19 pneumonia, adenocarcinoma of the lung, pleural effusion 84-year-old female who presented to the emergency department on June 18, with chief complaints of increasing shortness of breath. The patient was recently discharged from the hospital about 4 days ago having had a pneumonia and pleural effusion. She had a right-sided thoracentesis. Also, on June 10, she underwent bronchoscopy with biopsy by Dr. Rodriguez. My nurse practitioner tells me that the pathology came back positive for adenocarcinoma. Some of the biopsies are currently pending. I'm not sure if the fluid was sent for cytology. The thoracentesis was done by interventional radiology. Anyway when she presented to the emergency department, her saturations are only 84% on room air. She was quite short of breath. She was coughing. She hasn't been feeling well for about 2 weeks now. She states that she tested positive for coronavirus just today. She apparently has a history of COPD/asthma, diabetes, acid reflux disease, and was also recently found to have a large mass in the right upper lobe. She also has a history of hypothyroidism, hyperlipidemia, and hyperten lora. White count is 5, he will become 0.4, hematocrit 33.9, and platelet count 209,000. Sodium 138, potassium 4.1, chlorides 101, CO2 33, anion gap 4, BUN 5, and creatinine 0.5. Urine was positive for leukocyte esterase, with rare bacteria, and 1 WBC. Chest x-ray shows a right-sided pleural effusion, with some basilar atelectasis and collapse. The pocket of fluid on the right side is 9.3 cm. The patient is seen today 06/20/2020 in follow-up on the regular medical floor. She is currently resting comfortably in bed. Awake and alert in no acute distress. Chest x-ray continues to revealed feel the right upper lobe mass which is confirmed adenocarcinoma. Improved aeration of the right lower lobe post thoracentesis. Bibasilar atelectasis. No pneumothorax. Repeat thoracentesis was performed yesterday with 1.7 L of dark yellow fluid removed. Plan was for Pleurx catheter placement however the patient is positive for CoVID 19. She remains on 6 L high flow nasal cannula to maintain O2 saturations in the 90s. White count 5.5. Hemoglobin 11.3. Lymphocytes 0.3. Sodium 132. Pot assium 4.0. Creatinine 0.46. She remains on Decadron, Lovenox, vitamin supplements. The patient is seen today 06/21/2020 in follow-up on the regular medical floor. She is awake and alert in no acute distress. Currently resting fairly comfortably in bed. Doing a little better today compared to yesterday. Less short of breath. Feeling a bit stronger. Down to 4 L nasal cannula and maintaining O2 saturations in the 90s. Chest x-ray showing stable density in the right upper lobe. There is some recurrent effusion. Some increased density of the right lower lobe. White count 3.6. Hemoglobin 10.5. Lymphocytes 0.4. D-dimer 5.44. Sodium 135. Potassium 2.5. Creatinine 0.51. LDH 701. C- reactive protein 44. She is on Lovenox 30 mg daily, dexamethasone, vitamin supplements. The patient is seen today 06/22/2020 in follow-up on the regular medical floor. She is currently up ambulating in her room. Awake and alert in no acute distress. Breathing better today compared to yesterday. She is currently on 4 liters per minute per nasal cannula. She remains on ceftriaxone and azit hromycin. Continued on Lovenox, dexamethasone, vitamin supplements. Sodium 136. Potassium 4.2. Creatinine 0.51. Glucose 171. The patient is seen today 06/23/2020 in follow-up on the regular medical floor. She is currently resting comfortably in bed. Awake and alert in no acute distress. She is having some increasing shortness of breath however, continued with a cough and congestion. She is having some complaints of thrush in her mouth. She is currently on 12 L high flow nasal cannula. Glucose 189. He remains on ceftriaxone, azithromycin. Continued on dexamethasone, Lovenox, vitamin supplements. Objective - Vital Signs Vital signs: Vital Signs Temp 98 F 06/23/20 14:00 Pulse 91 06/23/20 14:00 Resp 18 06/23/20 14:00 BP 139/57 06/23/20 14:00 Pulse Ox 90 L 06/23/20 14:00 Intake & Output 06/22/20 06/23/20 06/23/20 18:59 06:59 18:59 Weight 58.967 kg Other: Voiding Method Toilet # Voids 2 1 2 # Bowel Movements 0 - Exam GENERAL EXAM: Alert, pleasant, frail 84-year-old female patient, on 12 L high flow nasal cannula comfortable in no apparent distress. HEAD: Normocephalic. EYES: Normal reaction of pupils, equal size. NOSE: Clear with pink turbinates. THROAT: No erythema or exudates. NECK: No masses, no JVD. CHEST: No chest wall deformity. LUNGS: Equal air entry with bibasilar crackles right greater than left. CVS: S1 and S2 normal with no audible murmur, regular rhythm. ABDOMEN: No hepatosplenomegaly, normal bowel sounds, no guarding or rigidity. SPINE: No scoliosis or deformity SKIN: No rashes CENTRAL NERVOUS SYSTEM: No focal deficits, tone is normal in all 4 extremities. EXTREMITIES: There is no peripheral edema. No clubbing, no cyanosis. Peripheral pulses are intact. - Labs CBC & Chem 7: 06/21/20 07:24 06/22/20 06:56 Labs: Abnormal Lab Results - Last 24 Hours (Table) 06/22/20 06/22/20 06/23/20 Range/Units 16:40 21:03 07:19 POC Glucose (mg/dL) 231 H 303 H 150 H (75-99) mg/dL 06/23/20 Range/Units 11:31 POC Glucose (mg/dL) 189 H (75-99) mg/dL Assessment and Plan Assessment: 1 Acute right acute hypoxemic respiratory failure secondary to acute CoVID 19 infection complicated by adenocarcinoma of the right lung, right sided pleural effusion. 2 Recurrent right-sided pleural effusion, status post thoracentesis on 06/19/2020 with 1.7 L of fluid removed 3 Recent diagnosis of lung cancer, adenocarcinoma post biopsy 06/11/2020 4 Hypertension 5 Hyperlipidemia 6 Diabetes mellitus 7 Chronic obstructive pulmonary disease/asthma 8 Gastroesophageal reflux disease 9 Of his history of chronic tobacco dependence Osteoporosis Plan: The patient was seen and evaluated by Dr. Velasquez Oxygen requirements have gone up Continue Decadron, Lovenox, vitamin supplements Continue antibiotics Follow-up chest x-ray in a.m. Consider Pleurx catheter once recovered from CoVID 19 We will continue to follow I, the cosigning physician, performed a history & physical examination of the patient. Lungs sounds with basilar crackles more so on the right lung base. Maintaining good O2 saturations in the 90s on 12 L high flow nasal cannula. I discussed the assessment and plan of care with my nurse practitioner, Isatu Turcios. I attest to the above note as dictated by her.
--- NOTE | 2020-06-23 16:40 | P.PN ---
Subjective 82-year-old female was admitted for right-sided pleural effusion secondary to adenocarcinoma of the right lung. Patient had recurrent pleural effusion was evaluated by cardiothoracic surgery for Pleurx catheter placement since the patient ended up being diagnosed with Covid 19, they recommended regular paracentesis, patient underwent thoracentesis with removal of around 1.6 L of pleural fluid. Patient was also started treatment for Covid with the Decadron, vitamin C vitamin D3 and zinc. Patient is feeling much better today will be enough oxygen possibility of discharge tomorrow. 06/20/2020 Patient requirements have gone up patient is presently a 60 describes and this probably secondary to Covid. Patient was started on multivitamins for Covid, Decadron. Patient is a dose of Lasix today. Patient is bit hyponatremic. Will monitor sodium. 06/21/2020 Serum sodium improved with the Lasix. Patient states she's feeling well but remains on 6 L of oxygen. 06/22/2020 Patient remains on 8 L of oxygen d-dimer is highly elevated because of which are patient's Lovenox was changed to twice a day. Patient has an increased density in the right lower lobe because of which patient was started on antibiotics for pneumonia that is Rocephin and azithromycin patient may have sinus secondary bacterial infection. 06/23/2020 Patient oximetry requirements have gone up patient is presently on 12 L of oxygen. Constitutional: Denied any fatigue denied any fever. Cardio vascular: denied any chest pain, palpitations Gastrointestinal denied any nausea vomiting Pulmonary: Denied any shortness of breath cough Neurologic denied any new focal deficits All inpatient medications were reviewed and appropriate changes in these medications as dictated in the interval history and assessment and plan. Objective - Vital Signs Vital signs: Vital Signs Temp 98 F 06/23/20 14:00 Pulse 91 06/23/20 14:00 Resp 18 06/23/20 14:00 BP 139/57 06/23/20 14:00 Pulse Ox 87 L 06/23/20 16:03 Intake & Output 06/22/20 06/23/20 06/23/20 18:59 06:59 18:59 Weight 58.967 kg Other: Voiding Method Toilet # Voids 2 1 2 # Bowel Movements 0 - Exam PHYSICAL EXAMINATION: GENERAL: The patient is alert and oriented x3, not in any acute distress. Well developed, well nourished. HEENT: Pupils are round and equally reacting to light. EOMI. No scleral icterus. No conjunctival pallor. Normocephalic, atraumatic. No pharyngeal erythema. No thyromegaly. CARDIOVASCULAR: S1 and S2 present. No murmurs, rubs, or gallops. PULMONARY: Patient has significant wheezing on exam ABDOMEN: Soft, nontender, nondistended, normoactive bowel sounds. No palpable organomegaly. MUSCULOSKELETAL: No joint swelling or deformity. EXTREMITIES: No cyanosis, clubbing, or pedal edema. NEUROLOGICAL: Gross neurological examination did not reveal any focal deficits. SKIN: No rashes. Note: Because of COVID 19 isolation, some of the history and physical exam findings are indirect and obtained from nursing staff, and other physician examinations to avoid unnecessary contact with the patient - Labs CBC & Chem 7: 06/21/20 07:24 06/22/20 06:56 Labs: Abnormal Lab Results - Last 24 Hours (Table) 06/22/20 06/22/20 06/23/20 Range/Units 16:40 21:03 07:19 POC Glucose (mg/dL) 231 H 303 H 150 H (75-99) mg/dL 06/23/20 Range/Units 11:31 POC Glucose (mg/dL) 189 H (75-99) mg/dL Assessment and Plan Plan: -Acute hypoxic respiratory failure: Secondary to right-sided pleural effusion patient has malignant pleural effusion recurrent pleural effusion because of which a thoracic surgery evaluated the patient as patient the is found to have Covid 19 and they recommended just a regular Thotacentesis and if this recurs then Pleurx catheter will be considered at that time. Patient is status post rmoval of 1.6 L of pleural fluid. Patient is presently on 12 L of oxygen -Covid 19 pneumonia leading to hypoxic respiratory failure -Adenocarcinoma of the right lung patient underwent workup for metastasis to the brain which was negative during her last hospitalization oncology evaluated the patient. -Hypervolemic hyponatremia improved with IV Lasix, may have diastolic dysfunction with acute exacerbation. Presently appears to be euvolemic -Type 2 diabetes mellitus -Hypertension -COPD with acute exacerbation patient can will be continued on inhalational treatments. Patient will be switched to DuoNeb from albuterol inhalation and patient is already on Decadron DVT prophylaxis with Lovenox
[2020-06-23 17:32] LABS: Glucose,Whole Blood 350 mg/dL (75-99)
[2020-06-23 20:52] LABS: Glucose,Whole Blood 233 mg/dL (75-99)
[2020-06-23] MEDS: PANTOPRAZOLE 40 MG TABLET PO SCH (21:21)
[2020-06-23] MEDS: ATORVASTATIN 20 MG TAB PO SCH (21:21)
[2020-06-24] MEDS: LEVOTHYROXINE 100 MCG TAB PO SCH (05:14)
[2020-06-24 07:18] LABS: Glucose,Whole Blood 126 mg/dL (75-99)
[2020-06-24] MEDS: TIOTROPIUM 2.5 MCG INHALER INHALATION PRN (07:46)
[2020-06-24] MEDS: ALBUTEROL HFA INHALER INHALATION PRN ×4 (07:46→19:39)
[2020-06-24] MEDS: FLUTICASONE 110 MCG INHALER INHALATION SCH ×2 (07:46→19:39)
[2020-06-24] MEDS: INSULIN ASPART (NovoLOG) 100 UNIT/ML VIAL SQ SCH ×4 (10:07→21:37)
--- NOTE | 2020-06-24 10:08 | XR ---
EXAMINATION TYPE: XR chest 1V portable DATE OF EXAM: 06/24/2020 COMPARISON: 06/21/2020 HISTORY: Chest tube TECHNIQUE: Single frontal view of the chest is obtained. FINDINGS: No chest tube is seen. Bilateral areas of infiltrate are noted and there is pleural blunti ng or effusion noted bilaterally. Heart is enlarged. Underlying COPD noted. Diffuse osteopenia. No pn eumothorax. Atherosclerotic change of the aorta. Surgical clips in the right upper quadrant. IMPRESSION: 1. Diffuse bilateral infiltrate has progressed on the left. Subpleural fluid collection or mass noted on the right stable from prior exam.
[2020-06-24] MEDS: ENOXAPARIN 30 MG/0.3 ML SYRINGE SQ SCH ×2 (10:18→21:37)
[2020-06-24] MEDS: FAMOTIDINE 20 MG TAB PO SCH (10:18)
[2020-06-24] MEDS: ASCORBIC ACID 500 MG TAB PO SCH (10:18)
[2020-06-24] MEDS: amLODIPine 10 MG TAB PO SCH (10:19)
[2020-06-24] MEDS: AZITHROMYCIN 500 MG TAB PO SCH (10:19)
[2020-06-24] MEDS: CHOLECALCIFEROL 25 MCG (1000 IU) TABLET PO SCH (10:19)
[2020-06-24] MEDS: ZINC SULFATE 220 MG CAP PO SCH (10:19)
[2020-06-24] MEDS: NYSTATIN 100,000 UNIT/ML SUSP 500,000 UNIT/5 ML CUP PO SCH ×4 (10:28→21:37)
[2020-06-24 12:13] LABS: Glucose,Whole Blood 193 mg/dL (75-99)
--- NOTE | 2020-06-24 14:54 | P.PN ---
Subjective Progress Note Date: 06/24/20 Principal diagnosis: Covid, NSCLC In follow-up patient is short of breath, O2 needs are increased, cough is stable, no hemoptysis. She denies fevers, nausea or vomiting, in general she is very weak. Objective - Vital Signs Vital signs: Vital Signs Temp 96.4 F L 06/24/20 12:07 Pulse 84 06/24/20 12:07 Resp 18 06/24/20 12:07 BP 130/63 06/24/20 12:07 Pulse Ox 89 L 06/24/20 12:07 Intake & Output 06/23/20 06/24/20 06/24/20 18:59 06:59 18:59 Intake Total 600 Balance 600 Intake: Oral 600 Other: Voiding Method Toilet # Voids 2 1 # Bowel Movements 0 - Constitutional General appearance: Present: average body habitus, cooperative, mild distress - EENT Eyes: Present: anicteric sclerae, EOMI ENT: Present: hearing grossly normal - Respiratory Details: Congested sounding cough, respirations are increased, mildly labored - Neurologic Neurologic: Present: CNII-XII intact - Musculoskeletal Musculoskeletal: Present: generalized weakness, strength equal bilaterally - Psychiatric Psychiatric: Present: A&O x's 3, appropriate affect, intact judgment & insight - Labs CBC & Chem 7: 06/21/20 07:24 06/22/20 06:56 Labs: Abnormal Lab Results - Last 24 Hours (Table) 06/23/20 06/23/20 06/24/20 Range/Units 17:31 20:51 07:17 POC Glucose (mg/dL) 350 H 233 H 126 H (75-99) mg/dL 06/24/20 Range/Units 12:11 POC Glucose (mg/dL) 193 H (75-99) mg/dL Assessment and Plan (1) Non-small cell lung cancer (NSCLC) Narrative/Plan: Molecular testing has been requested on biopsy specimen. Based on results, patient may be a candidate for targeted therapy. MRI of the brain was negative for metastases Plan for follow-up once patient has recovered from covid. Pending recovery from covid Current Visit: Yes Status: Acute Priority: High Code(s): C34.90 - MALIGNANT NEOPLASM OF UNSP PART OF UNSP BRONCHUS OR LUNG SNOMED Code(s): 045287617 (2) Pneumonia due to COVID-19 virus Current Visit: Yes Status: Acute Priority: High Code(s): U07.1 - COVID-19; J12.82 - Pneumonia due to coronavirus disease 2018 SNOMED Code(s): 036636337149862138
[2020-06-24 16:51] LABS: Glucose,Whole Blood 118 mg/dL (75-99)
--- NOTE | 2020-06-24 18:25 | P.PN ---
Subjective Progress Note Date: 06/24/20 Principal diagnosis: COVID 19 pneumonia, adenocarcinoma of the lung, pleural effusion 84-year-old female who presented to the emergency department on June 18, with chief complaints of increasing shortness of breath. The patient was recently discharged from the hospital about 4 days ago having had a pneumonia and pleural effusion. She had a right-sided thoracentesis. Also, on June 10, she underwent bronchoscopy with biopsy by Dr. Rodriguez. My nurse practitioner tells me that the pathology came back positive for adenocarcinoma. Some of the biopsies are currently pending. I'm not sure if the fluid was sent for cytology. The thoracentesis was done by interventional radiology. Anyway when she presented to the emergency department, her saturations are only 84% on room air. She was quite short of breath. She was coughing. She hasn't been feeling well for about 2 weeks now. She states that she tested positive for coronavirus just today. She apparently has a history of COPD/asthma, diabetes, acid reflux disease, and was also recently found to have a large mass in the right upper lobe. She also has a history of hypothyroidism, hyperlipidemia, and hyperten lora. White count is 5, he will become 0.4, hematocrit 33.9, and platelet count 209,000. Sodium 138, potassium 4.1, chlorides 101, CO2 33, anion gap 4, BUN 5, and creatinine 0.5. Urine was positive for leukocyte esterase, with rare bacteria, and 1 WBC. Chest x-ray shows a right-sided pleural effusion, with some basilar atelectasis and collapse. The pocket of fluid on the right side is 9.3 cm. The patient is seen today 06/20/2020 in follow-up on the regular medical floor. She is currently resting comfortably in bed. Awake and alert in no acute distress. Chest x-ray continues to revealed feel the right upper lobe mass which is confirmed adenocarcinoma. Improved aeration of the right lower lobe post thoracentesis. Bibasilar atelectasis. No pneumothorax. Repeat thoracentesis was performed yesterday with 1.7 L of dark yellow fluid removed. Plan was for Pleurx catheter placement however the patient is positive for CoVID 19. She remains on 6 L high flow nasal cannula to maintain O2 saturations in the 90s. White count 5.5. Hemoglobin 11.3. Lymphocytes 0.3. Sodium 132. Pot assium 4.0. Creatinine 0.46. She remains on Decadron, Lovenox, vitamin supplements. The patient is seen today 06/21/2020 in follow-up on the regular medical floor. She is awake and alert in no acute distress. Currently resting fairly comfortably in bed. Doing a little better today compared to yesterday. Less short of breath. Feeling a bit stronger. Down to 4 L nasal cannula and maintaining O2 saturations in the 90s. Chest x-ray showing stable density in the right upper lobe. There is some recurrent effusion. Some increased density of the right lower lobe. White count 3.6. Hemoglobin 10.5. Lymphocytes 0.4. D-dimer 5.44. Sodium 135. Potassium 2.5. Creatinine 0.51. LDH 701. C- reactive protein 44. She is on Lovenox 30 mg daily, dexamethasone, vitamin supplements. The patient is seen today 06/22/2020 in follow-up on the regular medical floor. She is currently up ambulating in her room. Awake and alert in no acute distress. Breathing better today compared to yesterday. She is currently on 4 liters per minute per nasal cannula. She remains on ceftriaxone and azit hromycin. Continued on Lovenox, dexamethasone, vitamin supplements. Sodium 136. Potassium 4.2. Creatinine 0.51. Glucose 171. The patient is seen today 06/23/2020 in follow-up on the regular medical floor. She is currently resting comfortably in bed. Awake and alert in no acute distress. She is having some increasing shortness of breath however, continued with a cough and congestion. She is having some complaints of thrush in her mouth. She is currently on 12 L high flow nasal cannula. Glucose 189. He remains on ceftriaxone, azithromycin. Continued on dexamethasone, Lovenox, vitamin supplements. On 06/25/2023 patient seen in follow-up on medical floor, patient is currently on 15 L high flow per partial rebreather, and her pulse ox is between 89-93%, she does desaturate with exertion. No compressive chest discomfort, or hemoptysis, no fever, no nausea vomiting, she is generally very weak. She was diagnosed with Covid 19 pneumonia, she does have adenocarcinoma of the lungs, awaiting to get stronger to start treatment. Today's chest x-ray shows diffuse bilateral infiltrates with some progression on the left, and subpleural fluid collection or mass on the right. MRI of the brain was negative for intracranial metastasis. Patient remains on Lovenox 30 mg twice daily, Decadron vitamins, patient is on empiric antibiotics in the form of ceftriaxone and azithromycin. Procalcitonin level was low at 0.22, and we will stop the antibiotics Objective - Vital Signs Vital signs: Vital Signs Temp 98.8 F 06/24/20 15:55 Pulse 92 06/24/20 15:55 Resp 20 06/24/20 15:55 BP 128/62 06/24/20 15:55 Pulse Ox 93 L 06/24/20 18:02 Intake & Output 06/23/20 06/24/20 06/24/20 18:59 06:59 18:59 Intake Total 600 600 Balance 600 600 Intake: Oral 600 600 Other: Voiding Method Toilet # Voids 2 1 4 # Bowel Movements 0 - Exam GENERAL EXAM: Alert, debilitated-looking 84-year-old white female, a partial nonrebreather mask at 15 L, comfortable in no apparent distress. HEAD: Normocephalic/atraumatic. EYES: Normal reaction of pupils, equal size. Conjunctiva pink, sclera white. NOSE: Clear with pink turbinates. THROAT: No erythema or exudates. NECK: No masses, no JVD, no thyroid enlargement, no adenopathy. CHEST: No chest wall deformity. Symmetrical expansion. LUNGS: Equal air entry with no crackles, wheeze, rhonchi or dullness. CVS: Regular rate and rhythm, normal S1 and S2, no gallops, no murmurs, no rubs ABDOMEN: Soft, nontender. No hepatosplenomegaly, normal bowel sounds, no guarding or rigidity. EXTREMITIES: No clubbing, no edema, no cyanosis, 2+ pulses and upper and lower extremities. MUSCULOSKELETAL: Muscle strength and tone normal. SPINE: No scoliosis or deformity SKIN: No rashes CENTRAL NERVOUS SYSTEM: Alert and oriented -3. No focal deficits, tone is normal in all 4 extremities. PSYCHIATRIC: Alert and oriented -3. Appropriate affect. Intact judgment and insight. - Labs CBC & Chem 7: 06/21/20 07:24 06/22/20 06:56 Labs: Abnormal Lab Results - Last 24 Hours (Table) 06/23/20 06/24/20 06/24/20 Range/Units 20:51 07:17 12:11 POC Glucose (mg/dL) 233 H 126 H 193 H (75-99) mg/dL 06/24/20 Range/Units 16:50 POC Glucose (mg/dL) 118 H (75-99) mg/dL Assessment and Plan Plan: Assessment: #1. Acute hypoxic respiratory failure secondary to acute COVID 19 infection #2. Non-small cell lung carcinoma of the right lung #3. Recent diagnosis of lung cancer, adenocarcinoma of the right lung post biopsy on 06/11/2020 the right upper lobe mass, with biopsy results positive for invasive non-small cell carcinoma compatible with poorly differentiated pulmonary adenocarcinoma. Patient also had right-sided thoracentesis on 06/11/2020. The pleural fluid cytology was nondiagnostic for malignancy #4. Hypertension #5. Hyperlipidemia #6. Diabetes mellitus type 2 #7. COPD #8. GERD #9. Previous history of chronic tobacco dependence #10. History of right-sided breast cancer status post lumpectomy and radiation treatments in 2009, completed a five-year course of tamoxifen Plan: Continue current medical treatment, continue Decadron, continue current dose Lovenox, we will obtain follow-up d-dimer tomorrow, follow up inflammatory osbaldo ers, wean FiO2, patient is generally weak, and debilitated, Code status DO NOT RESUSCITATE, overall prognosis is guarded. We'll continue to follow and make further recommendations based on clinical course I performed a history & physical examination of the patient and discussed their management with my nurse practitioner, Aixa Riley. I reviewed the nurse practitioner's note and agree with the documented findings and plan of care. Lung sounds are positive for diminished breath sounds. The findings and the impression was discussed with the patient. I attest to the documentation by the nurse practitioner. Time with Patient: Less than 30
[2020-06-24 21:07] LABS: Glucose,Whole Blood 232 mg/dL (75-99)
[2020-06-24] MEDS: PANTOPRAZOLE 40 MG TABLET PO SCH (21:36)
[2020-06-24] MEDS: ATORVASTATIN 20 MG TAB PO SCH (21:36)
[2020-06-24] MEDS: guaiFENesin-DM 100-10MG/5ML 10 ML CUP PO PRN (21:37)
--- NOTE | 2020-06-24 23:41 | P.PN ---
Progress Note - Text Progress Note Date: 06/24/20 History of presenting complaint 82-year-old female was admitted for right-sided pleural effusion secondary to adenocarcinoma of the right lung. Patient had recurrent pleural effusion was evaluated by cardiothoracic surgery for Pleurx catheter placement since the patient ended up being diagnosed with Covid 19, they recommended thoracentesis, patient underwent removal of around 1.6 L of pleural fluid. Patient was also started treatment for Covid with the Decadron, vitamin C vitamin D3 and zinc. Patient's pulse oxygen requirement is slowly been going up. Admitted with right pleural effusion secondary to carcinoma. Acute hypoxic respiratory failure. Hyponatremia. Also suspected to have secondary right lower lobe pneumonia for which he started and antibiotics including ceftriaxone and Zithromax Today: Sitting up in a chair. Some shortness of breath. Did tolerate a diet. Review of systems: Was done for constitutional, cardiovascular, GI, pulmonary. relevant finding as above Active Medications Acetaminophen (Acetaminophen Tab 325 Mg Tab) 650 mg PO Q4HR PRN PRN Reason: Fever and/ or Pain Last Admin: 06/20/20 08:47 Dose: 650 mg Documented by: Albuterol Sulfate (Albuterol Hfa Inhaler) 2 puff INHALATION RT-QID PRN PRN Reason: Shortness Of Breath Or Wheezing Last Admin: 06/24/20 19:39 Dose: 2 puff Documented by: Amlodipine Besylate (Amlodipine 10 Mg Tab) 10 mg PO DAILY [facility] Last Admin: 06/24/20 10:19 Dose: 10 mg Documented by: Ascorbic Acid (Ascorbic Acid 500 Mg Tab) 1,000 mg PO DAILY [facility] Last Admin: 06/24/20 10:18 Dose: 1,000 mg Documented by: Atorvastatin Calcium (Atorvastatin 20 Mg Tab) 20 mg PO HS [facility] Last Admin: 06/24/20 21:36 Dose: 20 mg Documented by: Cholecalciferol (Cholecalciferol 25 Mcg (1000 Iu) Tablet) 125 mcg PO DAILY [facility] Last Admin: 06/24/20 10:19 Dose: 125 mcg Documented by: Dexamethasone (Dexamethasone 2 Mg Tab) 6 mg PO DAILY [facility] Last Admin: 06/23/20 07:44 Dose: 6 mg Documented by: Enoxaparin Sodium (Enoxaparin 30 Mg/0.3 Ml Syringe) 30 mg SQ BID [facility] Last Admin: 06/24/20 21:37 Dose: 30 mg Documented by: Famotidine (Famotidine 20 Mg Tab) 40 mg PO DAILY [facility] Last Admin: 06/24/20 10:18 Dose: 40 mg Documented by: Fluticasone Propionate (Fluticasone 110 Mcg Inhaler) 2 puff INHALATION RT-BID [facility] Last Admin: 06/24/20 19:39 Dose: 2 puff Documented by: Guaifenesin/Dextromethorphan (Guaifenesin-Dm 100-10mg/5ml 10 Ml Cup) 10 ml PO Q6H PRN PRN Reason: Cough Last Admin: 06/24/20 21:37 Dose: 10 ml Documented by: Insulin Aspart (Insulin Aspart (Novolog) 100 Unit/Ml Vial) 0 unit SQ [facility]; Protocol Last Admin: 06/24/20 21:37 Dose: 8 unit Documented by: Levothyroxine Sodium (Levothyroxine 100 Mcg Tab) 100 mcg PO 0630 [facility] Last Admin: 06/24/20 05:14 Dose: 100 mcg Documented by: Metoclopramide HCl (Metoclopramide 5 Mg Tab) 5 mg PO TID PRN PRN Reason: Nausea Last Admin: 06/20/20 12:13 Dose: 5 mg Documented by: Naloxone HCl (Naloxone 0.4 Mg/Ml 1 Ml Vial) 0.2 mg IV Q2M PRN PRN Reason: Opioid Reversal Non-Formulary Medication (Exenatide Microspheres [Bydureon Pen]) 2 mg SQ [place] [facility] Last Admin: 06/23/20 09:35 Dose: Not Given Documented by: Nystatin (Nystatin 100,000 Unit/Ml Susp 500,000 Unit/5 Ml Cup) 500,000 unit PO QID [facility] Last Admin: 06/24/20 21:37 Dose: 500,000 unit Documented by: Ondansetron HCl (Ondansetron 4 Mg/2 Ml Vial) 4 mg IVP Q6HR PRN PRN Reason: Nausea And Vomiting Pantoprazole Sodium (Pantoprazole 40 Mg Tablet) 40 mg PO HS [facility] Last Admin: 06/24/20 21:36 Dose: 40 mg Documented by: Tiotropium [place] (Tiotropium 2.5 Mcg Inhaler) 2 puff INHALATION RT-DAILY PRN PRN Reason: Shortness Of Breath Or Wheezing Last Admin: 06/24/20 07:46 Dose: 2 puff Documented by: Zinc Sulfate (Zinc Sulfate 220 Mg Cap) 220 mg PO DAILY [facility] Last Admin: 06/24/20 10:19 Dose: 220 mg Documented by: On examination: VITAL SIGNS: 98.8, 92, 20, 128/62, 90% on 15 L GENERAL APPEARANCE: Sitting, to chair but there is full code Last some shortness of breath. NECK: JVD not raised. Mass not palpable. RESPIRATORY: Respiratory effort increased NEUROLOGICAL: No facial asymmetry. Moving all 4 limbs PSYCHIATRY: Alert and oriented x3. Mood and affect normal. Rest of exam as per pulmonary nursing INVESTIGATIONS, reviewed in the clinical context: Sodium 136 potassium 4.2 creatinine 0.51 WBC 3.6 hemoglobin 10.5 Pro-calcitonin 0.2 to D-dimer 5.44 CRP 44 Chest x-ray film personally reviewed by me-diffuse bilateral infiltrates Assessment and plan: -Acute hypoxic respiratory failure: Secondary to right-sided pleural effusion and COVID 19 pneumonia-worsening Continue with oxygen supplementation. Currently at high flow 15 L - malignant pleural effusion recurrent pleural effusion because of which a thoracic surgery evaluated the patient as patient the is found to have Covid 19 and they recommended just a regular Thotacentesis and if this recurs then Pleurx catheter will be considered at that time. Patient is status post rmoval of 1.6 L of pleural fluid. Possibly re-accumulating, worsening. Follow with cardiothoracic surgery -Covid 19 pneumonia leading to hypoxic respiratory failure On dexamethasone, Lovenox -Adenocarcinoma of the right lung MRI negative for metastasis to the brain , during her last hospitalization . Molecular testing has been requested on biopsy specimen by oncology. -Hypervolemic hyponatremia improved with IV Lasix, may have diastolic dysfunction with acute exacerbation. Presently appears to be euvolemic -Type 2 diabetes mellitus Follow Accu-Cheks -Essential Hypertension Continue with amlodipine -COPD with acute exacerbation on inhalational treatments. , on Decadron -CODE STATUS DO NOT RESUSCITATE Prognosis guarded. Oxygen requirement is getting worse. Short of breath. Follow up with multiple consultants. Discussed the patient.
[2020-06-25] MEDS: LEVOTHYROXINE 100 MCG TAB PO SCH (05:37)
[2020-06-25 07:03] LABS: Glucose,Whole Blood 157 mg/dL (75-99)
[2020-06-25] MEDS: ALBUTEROL HFA INHALER INHALATION PRN ×3 (09:21→19:32)
[2020-06-25] MEDS: FLUTICASONE 110 MCG INHALER INHALATION SCH ×2 (09:22→19:33)
[2020-06-25] MEDS: INSULIN ASPART (NovoLOG) 100 UNIT/ML VIAL SQ SCH ×4 (09:29→21:10)
[2020-06-25] MEDS: ASCORBIC ACID 500 MG TAB PO SCH (09:33)
[2020-06-25] MEDS: dexAMETHasone 2 MG TAB PO SCH (09:33)
[2020-06-25] MEDS: FAMOTIDINE 20 MG TAB PO SCH (09:33)
[2020-06-25] MEDS: ACETAMINOPHEN TAB 325 MG TAB PO PRN (09:33)
[2020-06-25] MEDS: NYSTATIN 100,000 UNIT/ML SUSP 500,000 UNIT/5 ML CUP PO SCH ×4 (09:33→21:10)
[2020-06-25] MEDS: amLODIPine 10 MG TAB PO SCH (09:33)
[2020-06-25] MEDS: CHOLECALCIFEROL 25 MCG (1000 IU) TABLET PO SCH (09:33)
[2020-06-25] MEDS: ZINC SULFATE 220 MG CAP PO SCH (09:34)
[2020-06-25] MEDS: ENOXAPARIN 30 MG/0.3 ML SYRINGE SQ SCH ×2 (09:45→21:10)
[2020-06-25 11:29] LABS: Glucose,Whole Blood 180 mg/dL (75-99)
[2020-06-25 12:25] LABS: African American GFR (CKD) 104.5 (60.0-200.0); Anion Gap 13.3 mmol/L (4.00-12.00); C Reactive Protein 7.8 mg/dL (0.0-0.8); Calcium 8.2 mg/dL (8.7-10.3); Carbon Dioxide 27.7 mmol/L (21.6-31.8); Non-African American GFR(CKD) 90.1 (60.0-200.0)
--- NOTE | 2020-06-25 14:10 | P.PN ---
Subjective Progress Note Date: 06/25/20 Principal diagnosis: Covid, NSCLC In follow-up patient is in bed, nonrebreather, sleeping most the time, was arousable to voice and soft touch. She was able to drink some water and she took a few her pills. Daughters at bedside, other family are coming. Objective - Vital Signs Vital signs: Vital Signs Temp 98.0 F 06/25/20 10:00 Pulse 97 06/25/20 10:00 Resp 22 06/25/20 10:00 BP 146/62 06/25/20 10:00 Pulse Ox 90 L 06/25/20 10:00 Intake & Output 06/24/20 06/25/20 06/25/20 18:59 06:59 18:59 Intake Total 600 Balance 600 Intake: Oral 600 Other: Voiding Method Bedside Commode Bedpan # Voids 4 3 # Bowel Movements 1 - Constitutional General appearance: Present: cooperative, mild distress, thin - EENT Eyes: Present: anicteric sclerae, EOMI ENT: Present: hearing grossly normal - Respiratory Respiratory: bilateral: diminished - Cardiovascular Heart sounds: normal: S1, S2 - Psychiatric Psychiatric: Present: A&O x's 3, appropriate affect, intact judgment & insight - Labs CBC & Chem 7: 06/21/20 07:24 06/25/20 06:09 Labs: Abnormal Lab Results - Last 24 Hours (Table) 06/24/20 06/24/20 06/25/20 Range/Units 16:50 21:06 06:09 D-Dimer 2.36 H (<0.60) mg/L FEU Anion Gap (4.00-12.00) mmol/L Creatinine (0.6-1.5) mg/dL BUN/Creatinine Ratio (12.00-20.00) Ratio Glucose (70-110) mg/dL POC Glucose (mg/dL) 118 H 232 H (75-99) mg/dL Calcium (8.7-10.3) mg/dL Lactate Dehydrogenase (120-246) U/L C-Reactive Protein (0.0-0.8) mg/dL 06/25/20 06/25/20 06/25/20 Range/Units 06:09 06:49 11:27 D-Dimer (<0.60) mg/L FEU Anion Gap 13.30 H (4.00-12.00) mmol/L Creatinine 0.5 L (0.6-1.5) mg/dL BUN/Creatinine Ratio 22.00 H (12.00-20.00) Ratio Glucose 137 H (70-110) mg/dL POC Glucose (mg/dL) 157 H 180 H (75-99) mg/dL Calcium 8.2 L (8.7-10.3) mg/dL Lactate Dehydrogenase 453 H (120-246) U/L C-Reactive Protein 7.8 H (0.0-0.8) mg/dL Assessment and Plan (1) Non-small cell lung cancer (NSCLC) Narrative/Plan: Molecular testing was sent on biopsy specimen. Unfortunately, patient is going to succumb to sequela of Covid. Current Visit: Yes Status: Acute Priority: High Code(s): C34.90 - MALIGNANT NEOPLASM OF UNSP PART OF UNSP BRONCHUS OR LUNG SNOMED Code(s): 801623648 (2) Pneumonia due to COVID-19 virus Current Visit: Yes Status: Acute Priority: High Code(s): U07.1 - COVID-19; J12.82 - Pneumonia due to coronavirus disease 2019 SNOMED Code(s): 037031002766936022 Plan: Per daughter no aggressive measures, patient is a. Unfortunately, she is likely terminal secondary to sequela of Covid infection
--- NOTE | 2020-06-25 16:19 | P.PN ---
Subjective Progress Note Date: 06/25/20 Principal diagnosis: COVID 19 pneumonia, adenocarcinoma of the lung, pleural effusion 84-year-old female who presented to the emergency department on June 18, with chief complaints of increasing shortness of breath. The patient was recently discharged from the hospital about 4 days ago having had a pneumonia and pleural effusion. She had a right-sided thoracentesis. Also, on June 10, she underwent bronchoscopy with biopsy by Dr. Rodriguez. My nurse practitioner tells me that the pathology came back positive for adenocarcinoma. Some of the biopsies are currently pending. I'm not sure if the fluid was sent for cytology. The thoracentesis was done by interventional radiology. Anyway when she presented to the emergency department, her saturations are only 84% on room air. She was quite short of breath. She was coughing. She hasn't been feeling well for about 2 weeks now. She states that she tested positive for coronavirus just today. She apparently has a history of COPD/asthma, diabetes, acid reflux disease, and was also recently found to have a large mass in the right upper lobe. She also has a history of hypothyroidism, hyperlipidemia, and hyperten lora. White count is 5, he will become 0.4, hematocrit 33.9, and platelet count 209,000. Sodium 138, potassium 4.1, chlorides 101, CO2 33, anion gap 4, BUN 5, and creatinine 0.5. Urine was positive for leukocyte esterase, with rare bacteria, and 1 WBC. Chest x-ray shows a right-sided pleural effusion, with some basilar atelectasis and collapse. The pocket of fluid on the right side is 9.3 cm. The patient is seen today 06/20/2020 in follow-up on the regular medical floor. She is currently resting comfortably in bed. Awake and alert in no acute distress. Chest x-ray continues to revealed feel the right upper lobe mass which is confirmed adenocarcinoma. Improved aeration of the right lower lobe post thoracentesis. Bibasilar atelectasis. No pneumothorax. Repeat thoracentesis was performed yesterday with 1.7 L of dark yellow fluid removed. Plan was for Pleurx catheter placement however the patient is positive for CoVID 19. She remains on 6 L high flow nasal cannula to maintain O2 saturations in the 90s. White count 5.5. Hemoglobin 11.3. Lymphocytes 0.3. Sodium 132. Pot assium 4.0. Creatinine 0.46. She remains on Decadron, Lovenox, vitamin supplements. The patient is seen today 06/21/2020 in follow-up on the regular medical floor. She is awake and alert in no acute distress. Currently resting fairly comfortably in bed. Doing a little better today compared to yesterday. Less short of breath. Feeling a bit stronger. Down to 4 L nasal cannula and maintaining O2 saturations in the 90s. Chest x-ray showing stable density in the right upper lobe. There is some recurrent effusion. Some increased density of the right lower lobe. White count 3.6. Hemoglobin 10.5. Lymphocytes 0.4. D-dimer 5.44. Sodium 135. Potassium 2.5. Creatinine 0.51. LDH 701. C- reactive protein 44. She is on Lovenox 30 mg daily, dexamethasone, vitamin supplements. The patient is seen today 06/22/2020 in follow-up on the regular medical floor. She is currently up ambulating in her room. Awake and alert in no acute distress. Breathing better today compared to yesterday. She is currently on 4 liters per minute per nasal cannula. She remains on ceftriaxone and azit hromycin. Continued on Lovenox, dexamethasone, vitamin supplements. Sodium 136. Potassium 4.2. Creatinine 0.51. Glucose 171. The patient is seen today 06/23/2020 in follow-up on the regular medical floor. She is currently resting comfortably in bed. Awake and alert in no acute distress. She is having some increasing shortness of breath however, continued with a cough and congestion. She is having some complaints of thrush in her mouth. She is currently on 12 L high flow nasal cannula. Glucose 189. He remains on ceftriaxone, azithromycin. Continued on dexamethasone, Lovenox, vitamin supplements. On 06/25/2023 patient seen in follow-up on medical floor, patient is currently on 15 L high flow per partial rebreather, and her pulse ox is between 89-93%, she does desaturate with exertion. No compressive chest discomfort, or hemoptysis, no fever, no nausea vomiting, she is generally very weak. She was diagnosed with Covid 19 pneumonia, she does have adenocarcinoma of the lungs, awaiting to get stronger to start treatment. Today's chest x-ray shows diffuse bilateral infiltrates with some progression on the left, and subpleural fluid collection or mass on the right. MRI of the brain was negative for intracranial metastasis. Patient remains on Lovenox 30 mg twice daily, Decadron vitamins, patient is on empiric antibiotics in the form of ceftriaxone and azithromycin. Procalcitonin level was low at 0.22, and we will stop the antibiotics On 06/25/2020 patient seen in follow-up on medical floor, remains on 15 L high flow, and nonrebreather, her pulse ox is marginal, at 90%, she appears very weak, fatigued, but no acute distress DuoNeb. She continues on oral dexame thasone, vitamins, and vitamins in the form of ceftriaxone and Rocephin have been discontinued. Her inflammatory markers are improving, LDH is down to 453, CRP is 7.8, purple calcitonin level was low at 0.22, d-dimer is trending down, and is at 2.36 on today's labs, electrolytes are within normal limits, BUN is 11, creatinine 0.5. Patient's brother is at the bedside, patient's family along with the patient decided on DO NOT RESUSCITATE CODE STATUS, we'll continue supportive treatment, and a follow-up chest x-ray tomorrow Objective - Vital Signs Vital signs: Vital Signs Temp 98.2 F 06/25/20 15:08 Pulse 99 06/25/20 15:08 Resp 20 06/25/20 15:08 BP 114/66 06/25/20 15:08 Pulse Ox 88 L 06/25/20 15:08 Intake & Output 06/24/20 06/25/20 06/25/20 18:59 06:59 18:59 Intake Total 600 Balance 600 Intake: Oral 600 Other: Voiding Method Bedside Commode Bedpan # Voids 4 3 # Bowel Movements 1 - Exam GENERAL EXAM: Alert, debilitated-looking 84-year-old white female, a partial nonrebreather mask at 15 L, the pulse ox of 88% comfortable in no apparent distress. HEAD: Normocephalic/atraumatic. EYES: Normal reaction of pupils, equal size. Conjunctiva pink, sclera white. NOSE: Clear with pink turbinates. THROAT: No erythema or exudates. NECK: No masses, no JVD, no thyroid enlargement, no adenopathy. CHEST: No chest wall deformity. Symmetrical expansion. LUNGS: Equal air entry with no crackles, wheeze, rhonchi or dullness. CVS: Regular rate and rhythm, normal S1 and S2, no gallops, no murmurs, no rubs ABDOMEN: Soft, nontender. No hepatosplenomegaly, normal bowel sounds, no guarding or rigidity. EXTREMITIES: No clubbing, no edema, no cyanosis, 2+ pulses and upper and lower extremities. MUSCULOSKELETAL: Muscle strength and tone normal. SPINE: No scoliosis or deformity SKIN: No rashes CENTRAL NERVOUS SYSTEM: Alert and oriented -3. No focal deficits, tone is normal in all 4 extremities. PSYCHIATRIC: Alert and oriented -3. Appropriate affect. Intact judgment and insight. - Labs CBC & Chem 7: 06/21/20 07:24 06/25/20 06:09 Labs: Abnormal Lab Results - Last 24 Hours (Table) 06/24/20 06/24/20 06/25/20 Range/Units 16:50 21:06 06:09 D-Dimer 2.36 H (<0.60) mg/L FEU Anion Gap (4.00-12.00) mmol/L Creatinine (0.6-1.5) mg/dL BUN/Creatinine Ratio (12.00-20.00) Ratio Glucose (70-110) mg/dL POC Glucose (mg/dL) 118 H 232 H (75-99) mg/dL Calcium (8.7-10.3) mg/dL Lactate Dehydrogenase (120-246) U/L C-Reactive Protein (0.0-0.8) mg/dL 06/25/20 06/25/20 06/25/20 Range/Units 06:09 06:49 11:27 D-Dimer (<0.60) mg/L FEU Anion Gap 13.30 H (4.00-12.00) mmol/L Creatinine 0.5 L (0.6-1.5) mg/dL BUN/Creatinine Ratio 22.00 H (12.00-20.00) Ratio Glucose 137 H (70-110) mg/dL POC Glucose (mg/dL) 157 H 180 H (75-99) mg/dL Calcium 8.2 L (8.7-10.3) mg/dL Lactate Dehydrogenase 453 H (120-246) U/L C-Reactive Protein 7.8 H (0.0-0.8) mg/dL Assessment and Plan Plan: Assessment: #1. Acute hypoxic respiratory failure secondary to acute COVID 19 infection #2. Non-small cell lung carcinoma of the right lung #3. Recent diagnosis of lung cancer, adenocarcinoma of the right lung post biopsy on 06/11/2020 the right upper lobe mass, with biopsy results positive for invasive non-small cell carcinoma compatible with poorly differentiated pulmonary adenocarcinoma. Patient also had right-sided thoracentesis on 06/11/2020. The pleural fluid cytology was nondiagnostic for malignancy #4. Hypertension #5. Hyperlipidemia #6. Diabetes mellitus type 2 #7. COPD #8. GERD #9. Previous history of chronic tobacco dependence #10. History of right-sided breast cancer status post lumpectomy and radiation treatments in 2009, completed a five-year course of tamoxifen Plan: Continue weaning FiO2 to keep O2 sat between 88-90%, worsening dyspnea, inflammatory markers and a d-dimer improving, continue with steroids, cut back the Lovenox to 40 mg daily. We will continue with medical treatment, overall prognosis is extremely guarded. I performed a history & physical examination of the patient and discussed their management with my nurse practitioner, Aixa Riley. I reviewed the nurse practitioner's note and agree with the documented findings and plan of care. Lung sounds are positive for diminished breath sounds. The findings and the impression was discussed with the patient. I attest to the documentation by the nurse practitioner. Time with Patient: Less than 30
[2020-06-25 17:13] LABS: Glucose,Whole Blood 287 mg/dL (75-99)
[2020-06-25 20:18] LABS: Glucose,Whole Blood 177 mg/dL (75-99)
[2020-06-25] MEDS: PANTOPRAZOLE 40 MG TABLET PO SCH (21:10)
[2020-06-25] MEDS: ATORVASTATIN 20 MG TAB PO SCH (21:10)
--- NOTE | 2020-06-25 23:26 | P.PN ---
Progress Note - Text Progress Note Date: 06/25/20 History of presenting complaint 82-year-old female was admitted for right-sided pleural effusion secondary to adenocarcinoma of the right lung. Patient had recurrent pleural effusion was evaluated by cardiothoracic surgery for Pleurx catheter placement since the patient ended up being diagnosed with Covid 19, they recommended thoracentesis, patient underwent removal of around 1.6 L of pleural fluid. Patient was also started treatment for Covid with the Decadron, vitamin C vitamin D3 and zinc. Patient's pulse oxygen requirement is slowly been going up. Admitted with right pleural effusion secondary to carcinoma. Acute hypoxic respiratory failure. Hyponatremia. Also suspected to have secondary right lower lobe pneumonia for which he started and antibiotics including ceftriaxone and Zithromax Today: Laying in bed. On 15 L nonrebreather. Daughter is at bedside. Tired. Decreased oral intake. Short of breath Review of systems: Was done for constitutional, cardiovascular, GI, pulmonary. relevant finding as above Active Medications Acetaminophen (Acetaminophen Tab 325 Mg Tab) 650 mg PO Q4HR PRN PRN Reason: Fever and/ or Pain Last Admin: 06/25/20 09:33 Dose: 650 mg Documented by: Albuterol Sulfate (Albuterol Hfa Inhaler) 2 puff INHALATION RT-QID PRN PRN Reason: Shortness Of Breath Or Wheezing Last Admin: 06/25/20 19:32 Dose: 2 puff Documented by: Amlodipine Besylate (Amlodipine 10 Mg Tab) 10 mg PO DAILY [facility] Last Admin: 06/25/20 09:33 Dose: 10 mg Documented by: Ascorbic Acid (Ascorbic Acid 500 Mg Tab) 1,000 mg PO DAILY [facility] Last Admin: 06/25/20 09:33 Dose: 1,000 mg Documented by: Atorvastatin Calcium (Atorvastatin 20 Mg Tab) 20 mg PO HS [facility] Last Admin: 06/25/20 21:10 Dose: 20 mg Documented by: Cholecalciferol (Cholecalciferol 25 Mcg (1000 Iu) Tablet) 125 mcg PO DAILY [facility] Last Admin: 06/25/20 09:33 Dose: 125 mcg Documented by: Dexamethasone (Dexamethasone 2 Mg Tab) 6 mg PO DAILY [facility] Last Admin: 06/25/20 09:33 Dose: 6 mg Documented by: Enoxaparin Sodium (Enoxaparin 30 Mg/0.3 Ml Syringe) 30 mg SQ BID [facility] Last Admin: 06/25/20 21:10 Dose: 30 mg Documented by: Famotidine (Famotidine 20 Mg Tab) 40 mg PO DAILY [facility] Last Admin: 06/25/20 09:33 Dose: 40 mg Documented by: Fluticasone Propionate (Fluticasone 110 Mcg Inhaler) 2 puff INHALATION RT-BID [facility] Last Admin: 06/25/20 19:33 Dose: 2 puff Documented by: Guaifenesin/Dextromethorphan (Guaifenesin-Dm 100-10mg/5ml 10 Ml Cup) 10 ml PO Q6H PRN PRN Reason: Cough Last Admin: 06/24/20 21:37 Dose: 10 ml Documented by: Insulin Aspart (Insulin Aspart (Novolog) 100 Unit/Ml Vial) 0 unit SQ [facility]; Protocol Last Admin: 06/25/20 21:10 Dose: 4 unit Documented by: Levothyroxine Sodium (Levothyroxine 100 Mcg Tab) 100 mcg PO 0630 [facility] Last Admin: 06/25/20 05:37 Dose: 100 mcg Documented by: Metoclopramide HCl (Metoclopramide 5 Mg Tab) 5 mg PO TID PRN PRN Reason: Nausea Last Admin: 06/20/20 12:13 Dose: 5 mg Documented by: Naloxone HCl (Naloxone 0.4 Mg/Ml 1 Ml Vial) 0.2 mg IV Q2M PRN PRN Reason: Opioid Reversal Non-Formulary Medication (Exenatide Microspheres [Bydureon Pen]) 2 mg SQ [place] [facility] Last Admin: 06/23/20 09:35 Dose: Not Given Documented by: Nystatin (Nystatin 100,000 Unit/Ml Susp 500,000 Unit/5 Ml Cup) 500,000 unit PO QID [facility] Last Admin: 06/25/20 21:10 Dose: 500,000 unit Documented by: Ondansetron HCl (Ondansetron 4 Mg/2 Ml Vial) 4 mg IVP Q6HR PRN PRN Reason: Nausea And Vomiting Pantoprazole Sodium (Pantoprazole 40 Mg Tablet) 40 mg PO HS [facility] Last Admin: 06/25/20 21:10 Dose: 40 mg Documented by: Tiotropium [place] (Tiotropium 2.5 Mcg Inhaler) 2 puff INHALATION RT-DAILY PRN PRN Reason: Shortness Of Breath Or Wheezing Last Admin: 06/24/20 07:46 Dose: 2 puff Documented by: Zinc Sulfate (Zinc Sulfate 220 Mg Cap) 220 mg PO DAILY [facility] Last Admin: 06/25/20 09:34 Dose: 220 mg Documented by: On examination: VITAL SIGNS: 98.2, 99, 20, 114/16 6, 88% on 15 L high flow nonrebreather GENERAL APPEARANCE: Laying in bed, tired. RESPIRATORY: Respiratory effort increased , using accessory muscles NEUROLOGICAL: No facial asymmetry. Moving all 4 limbs PSYCHIATRY: Alert and oriented x3. Mood and affect anxious Rest of exam as per pulmonary and nursing INVESTIGATIONS, reviewed in the clinical context: June 25: D-dimer 2.3 potassium 4 creatinine 0.5 CRP 7.8 Sodium 136 potassium 4.2 creatinine 0.51 WBC 3.6 hemoglobin 10.5 Pro-calcitonin 0.2 to D-dimer 5.44 CRP 44 Chest x-ray film personally reviewed by me-diffuse bilateral infiltrates Assessment and plan: -Acute hypoxic respiratory failure: Secondary to right-sided pleural effusion and COVID 19 :slow to respond Continue with oxygen supplementation. Currently at high flow 15 L - malignant pleural effusion recurrent pleural effusion because of which a thoracic surgery evaluated the patient as patient the is found to have Covid 19 and they recommended just a regular Thotacentesis and if this recurs then Pleurx catheter will be considered at that time. Patient is status post rmoval of 1.6 L of pleural fluid. Possibly re-accumulating, worsening. -Covid 19 pneumonia leading to hypoxic respiratory failure, not improving On dexamethasone, Lovenox -Adenocarcinoma of the right lung MRI negative for metastasis to the brain , during her last hospitalization . Molecular testing has been requested on biopsy specimen by oncology. -Hypervolemic hyponatremia improved with IV Lasix, may have diastolic dysfunction with acute exacerbation. Presently appears to be euvolemic -Type 2 diabetes mellitus Follow Accu-Cheks -Essential Hypertension Continue with amlodipine -COPD with acute exacerbation on inhalational treatments. , on Decadron -CODE STATUS DO NOT RESUSCITATE Advanced care planning: Discussed with the daughter and the patient at the bedside. Patient's CODE STATUS is DO NOT RESUSCITATE. Then distended overall prognosis is not good given the advance malignancy and COVID 19. And severe hypoxia. Like to keep the patient comfortable. Continue with oxygen. Patient's other daughter from out of [place] has been called. No artificial feeding. We'll see for next 24 hours on patient's clinical status and will consider other options in terms of patient's comfort. He wanted him 24 hours. Patient does take her own decisions, daughter helps support with the same. About 20 minutes was spent for a ACP
[2020-06-26] MEDS: guaiFENesin-DM 100-10MG/5ML 10 ML CUP PO PRN ×3 (02:25→22:06)
[2020-06-26] MEDS: LEVOTHYROXINE 100 MCG TAB PO SCH (06:02)
[2020-06-26 07:35] LABS: Glucose,Whole Blood 185 mg/dL (75-99)
[2020-06-26] MEDS: ALBUTEROL HFA INHALER INHALATION PRN ×4 (07:44→20:58)
[2020-06-26] MEDS: TIOTROPIUM 2.5 MCG INHALER INHALATION PRN (07:44)
[2020-06-26] MEDS: FLUTICASONE 110 MCG INHALER INHALATION SCH ×2 (07:44→20:59)
--- NOTE | 2020-06-26 08:00 | XR ---
EXAMINATION TYPE: XR chest 1V portable DATE OF EXAM: 06/26/2020 COMPARISON: 06/24/2020 HISTORY: Shortness of breath TECHNIQUE: Single frontal view of the chest is obtained. FINDINGS: A diffuse bilateral infiltrates are seen. Pleural-based thickening or mass right upper lob e area of consolidation or mass are stable. Underlying COPD noted. Chronic rib deformity seen. Diffus e osteopenia. Atherosclerotic change aorta. Heart size stable. Underlying COPD suspected. Chronic noe earing rib deformities noted. IMPRESSION: Diffuse bilateral infiltrates with suspected mass involving the right lung stable.
[2020-06-26] MEDS: CHOLECALCIFEROL 25 MCG (1000 IU) TABLET PO SCH (08:48)
[2020-06-26] MEDS: NYSTATIN 100,000 UNIT/ML SUSP 500,000 UNIT/5 ML CUP PO SCH ×4 (08:48→22:05)
[2020-06-26] MEDS: ASCORBIC ACID 500 MG TAB PO SCH (08:49)
[2020-06-26] MEDS: FAMOTIDINE 20 MG TAB PO SCH (08:49)
[2020-06-26] MEDS: dexAMETHasone 2 MG TAB PO SCH (08:49)
[2020-06-26] MEDS: amLODIPine 10 MG TAB PO SCH (08:49)
[2020-06-26] MEDS: ZINC SULFATE 220 MG CAP PO SCH (08:49)
[2020-06-26] MEDS: ENOXAPARIN 30 MG/0.3 ML SYRINGE SQ SCH ×2 (08:50→22:04)
[2020-06-26] MEDS: INSULIN ASPART (NovoLOG) 100 UNIT/ML VIAL SQ SCH ×4 (08:50→22:04)
[2020-06-26] MEDS: ONDANSETRON 4 MG/2 ML VIAL IVP PRN ×2 (11:04→20:39)
[2020-06-26] MEDS: LORazepam 0.5 MG TAB PO PRN (11:56)
[2020-06-26 11:59] LABS: Glucose,Whole Blood 210 mg/dL (75-99)
[2020-06-26 16:56] LABS: Glucose,Whole Blood 263 mg/dL (75-99)
--- NOTE | 2020-06-26 17:11 | P.PN ---
Subjective Progress Note Date: 06/26/20 Principal diagnosis: COVID 19 pneumonia, adenocarcinoma of the lung, pleural effusion 84-year-old female who presented to the emergency department on June 18, with chief complaints of increasing shortness of breath. The patient was recently discharged from the hospital about 4 days ago having had a pneumonia and pleural effusion. She had a right-sided thoracentesis. Also, on June 10, she underwent bronchoscopy with biopsy by Dr. Rodriguez. My nurse practitioner tells me that the pathology came back positive for adenocarcinoma. Some of the biopsies are currently pending. I'm not sure if the fluid was sent for cytology. The thoracentesis was done by interventional radiology. Anyway when she presented to the emergency department, her saturations are only 84% on room air. She was quite short of breath. She was coughing. She hasn't been feeling well for about 2 weeks now. She states that she tested positive for coronavirus just today. She apparently has a history of COPD/asthma, diabetes, acid reflux disease, and was also recently found to have a large mass in the right upper lobe. She also has a history of hypothyroidism, hyperlipidemia, and hyperten lora. White count is 5, he will become 0.4, hematocrit 33.9, and platelet count 209,000. Sodium 138, potassium 4.1, chlorides 101, CO2 33, anion gap 4, BUN 5, and creatinine 0.5. Urine was positive for leukocyte esterase, with rare bacteria, and 1 WBC. Chest x-ray shows a right-sided pleural effusion, with some basilar atelectasis and collapse. The pocket of fluid on the right side is 9.3 cm. The patient is seen today 06/20/2020 in follow-up on the regular medical floor. She is currently resting comfortably in bed. Awake and alert in no acute distress. Chest x-ray continues to revealed feel the right upper lobe mass which is confirmed adenocarcinoma. Improved aeration of the right lower lobe post thoracentesis. Bibasilar atelectasis. No pneumothorax. Repeat thoracentesis was performed yesterday with 1.7 L of dark yellow fluid removed. Plan was for Pleurx catheter placement however the patient is positive for CoVID 19. She remains on 6 L high flow nasal cannula to maintain O2 saturations in the 90s. White count 5.5. Hemoglobin 11.3. Lymphocytes 0.3. Sodium 132. Pot assium 4.0. Creatinine 0.46. She remains on Decadron, Lovenox, vitamin supplements. The patient is seen today 06/21/2020 in follow-up on the regular medical floor. She is awake and alert in no acute distress. Currently resting fairly comfortably in bed. Doing a little better today compared to yesterday. Less short of breath. Feeling a bit stronger. Down to 4 L nasal cannula and maintaining O2 saturations in the 90s. Chest x-ray showing stable density in the right upper lobe. There is some recurrent effusion. Some increased density of the right lower lobe. White count 3.6. Hemoglobin 10.5. Lymphocytes 0.4. D-dimer 5.44. Sodium 135. Potassium 2.5. Creatinine 0.51. LDH 701. C- reactive protein 44. She is on Lovenox 30 mg daily, dexamethasone, vitamin supplements. The patient is seen today 06/22/2020 in follow-up on the regular medical floor. She is currently up ambulating in her room. Awake and alert in no acute distress. Breathing better today compared to yesterday. She is currently on 4 liters per minute per nasal cannula. She remains on ceftriaxone and azit hromycin. Continued on Lovenox, dexamethasone, vitamin supplements. Sodium 136. Potassium 4.2. Creatinine 0.51. Glucose 171. The patient is seen today 06/23/2020 in follow-up on the regular medical floor. She is currently resting comfortably in bed. Awake and alert in no acute distress. She is having some increasing shortness of breath however, continued with a cough and congestion. She is having some complaints of thrush in her mouth. She is currently on 12 L high flow nasal cannula. Glucose 189. He remains on ceftriaxone, azithromycin. Continued on dexamethasone, Lovenox, vitamin supplements. On 06/25/2023 patient seen in follow-up on medical floor, patient is currently on 15 L high flow per partial rebreather, and her pulse ox is between 89-93%, she does desaturate with exertion. No compressive chest discomfort, or hemoptysis, no fever, no nausea vomiting, she is generally very weak. She was diagnosed with Covid 19 pneumonia, she does have adenocarcinoma of the lungs, awaiting to get stronger to start treatment. Today's chest x-ray shows diffuse bilateral infiltrates with some progression on the left, and subpleural fluid collection or mass on the right. MRI of the brain was negative for intracranial metastasis. Patient remains on Lovenox 30 mg twice daily, Decadron vitamins, patient is on empiric antibiotics in the form of ceftriaxone and azithromycin. Procalcitonin level was low at 0.22, and we will stop the antibiotics On 06/25/2020 patient seen in follow-up on medical floor, remains on 15 L high flow, and nonrebreather, her pulse ox is marginal, at 90%, she appears very weak, fatigued, but no acute distress DuoNeb. She continues on oral dexame thasone, vitamins, and vitamins in the form of ceftriaxone and Rocephin have been discontinued. Her inflammatory markers are improving, LDH is down to 453, CRP is 7.8, purple calcitonin level was low at 0.22, d-dimer is trending down, and is at 2.36 on today's labs, electrolytes are within normal limits, BUN is 11, creatinine 0.5. Patient's brother is at the bedside, patient's family along with the patient decided on DO NOT RESUSCITATE CODE STATUS, we'll continue supportive treatment, and a follow-up chest x-ray tomorrow On 06/26/2020 patient seen in follow-up on medical floor. She appears a bit more upbeat, and conversant today, although still requiring high flow oxygen, she is on 15 L high flow nasal cannula, her pulse ox is 91%, and she also has 100% nonrebreather mask on top of it, she has a loose congested cough, lung sounds are coarse, and patient is at times bringing up some whitish yellowish colored sputum, she has been afebrile. Denies any chest pain or hemoptysis, today's chest x-ray showing diffuse bilateral infiltrates with right lung mass involving the right lung. Today's labs have been reviewed, showing d-dimer which has creased to 4.26 from 2.36 on yesterday's labs, CRP is up to 140.5 from 7.8, and LDH is pending. The patient is more congested, and wheezy, she has been on oral Decadron. Patient's daughter is at the bedside she is here from [place] she was updated in the patient's condition, patient is generally weak, still requiring high flow oxygen, patient is hoping to get to the point when she can receive treatment for her underlying lung cancer. Objective - Vital Signs Vital signs: Vital Signs Temp 97.8 F 06/26/20 10:00 Pulse 81 06/26/20 10:00 Resp 17 06/26/20 10:00 BP 120/60 06/26/20 10:00 Pulse Ox 91 L 06/26/20 10:00 Intake & Output 06/25/20 06/26/20 06/26/20 18:59 06:59 18:59 Output Total 300 Balance -300 Weight 58.967 kg Output: Urine 300 Other: Voiding Method Bedpan Bedpan Bedpan # Voids 4 # Bowel Movements 0 - Exam GENERAL EXAM: Alert, debilitated-looking 84-year-old white female, a partial nonrebreather mask at 15 L, the pulse ox of 91% comfortable in no apparent distress. HEAD: Normocephalic/atraumatic. EYES: Normal reaction of pupils, equal size. Conjunctiva pink, sclera white. NOSE: Clear with pink turbinates. THROAT: No erythema or exudates. NECK: No masses, no JVD, no thyroid enlargement, no adenopathy. CHEST: No chest wall deformity. Symmetrical expansion. LUNGS: Equal air entry with no crackles, wheeze, rhonchi or dullness. CVS: Regular rate and rhythm, normal S1 and S2, no gallops, no murmurs, no rubs ABDOMEN: Soft, nontender. No hepatosplenomegaly, normal bowel sounds, no guarding or rigidity. EXTREMITIES: No clubbing, no edema, no cyanosis, 2+ pulses and upper and lower extremities. MUSCULOSKELETAL: Muscle strength and tone normal. SPINE: No scoliosis or deformity SKIN: No rashes CENTRAL NERVOUS SYSTEM: Alert and oriented -3. No focal deficits, tone is normal in all 4 extremities. PSYCHIATRIC: Alert and oriented -3. Appropriate affect. Intact judgment and insight. - Labs CBC & Chem 7: 06/21/20 07:24 06/25/20 06:09 Labs: Abnormal Lab Results - Last 24 Hours (Table) 06/25/20 06/25/20 06/26/20 Range/Units 16:30 20:15 06:36 D-Dimer 4.26 H (<0.60) mg/L FEU POC Glucose (mg/dL) 287 H 177 H (75-99) mg/dL C-Reactive Protein (<10.0) mg/L 06/26/20 06/26/20 06/26/20 Range/Units 06:36 07:34 11:57 D-Dimer (<0.60) mg/L FEU POC Glucose (mg/dL) 185 H 210 H (75-99) mg/dL C-Reactive Protein 140.5 H (<10.0) mg/L 06/26/20 Range/Units 16:55 D-Dimer (<0.60) mg/L FEU POC Glucose (mg/dL) 263 H (75-99) mg/dL C-Reactive Protein (<10.0) mg/L Assessment and Plan Plan: Assessment: #1. Acute hypoxic respiratory failure secondary to acute COVID 19 infection, and acute exacerbation of COPD #2. Non-small cell lung carcinoma of the right lung #3. Recent diagnosis of lung cancer, adenocarcinoma of the right lung post biopsy on 06/11/2020 the right upper lobe mass, with biopsy results positive for invasive non-small cell carcinoma compatible with poorly differentiated pulmonary adenocarcinoma. Patient also had right-sided thoracentesis on 06/11/2020. The pleural fluid cytology was nondiagnostic for malignancy #4. Hypertension #5. Hyperlipidemia #6. Diabetes mellitus type 2 #7. COPD #8. GERD #9. Previous history of chronic tobacco dependence #10. History of right-sided breast cancer status post lumpectomy and radiation treatments in 2009, completed a five-year course of tamoxifen Plan: Patient lung sounds congested, she is bringing up phlegm, still, however still requiring high flow oxygen, she is wheezy, we will switch the patient to IV Solu-Medrol 60 mg every 6 hours, we will add empiric antibiotics in the form of Augmentin, pro-calcitonin level, we will send a sputum specimen. Continue weaning FiO2 to maintain O2 sats between 89-90%. We'll continue to follow her clinical course and make recommendations accordingly, patient's prognosis extremely guarded in view of underlying lung cancer, chronic medical conditions, and in addition to Covid 19 pneumonia. We will continue providing supportive treatment, CODE STATUS is DO NOT RESUSCITATE. Patient's daughter is at the bedside, and updated on patient's condition. I performed a history & physical examination of the patient and discussed their management with my nurse practitioner, Aixa Riley. I reviewed the nurse pra ctlittleer's note and agree with the documented findings and plan of care. Lung sounds are positive for diminished breath sounds. The findings and the impression was discussed with the patient. I attest to the documentation by the nurse practitioner. Time with Patient: Less than 30
[2020-06-26] MEDS: methylPREDNISolone SOD SUCCI 125 MG/2 ML VIAL IV SCH (17:46)
[2020-06-26] MEDS: MORPHINE SULFATE 2 MG/ML SYRINGE IVP PRN (20:39)
--- NOTE | 2020-06-26 20:52 | P.PN ---
Progress Note - Text Progress Note Date: 06/26/20 History of presenting complaint 82-year-old female was admitted for right-sided pleural effusion secondary to adenocarcinoma of the right lung. Patient had recurrent pleural effusion was evaluated by cardiothoracic surgery for Pleurx catheter placement since the patient ended up being diagnosed with Covid 19, they recommended thoracentesis, patient underwent removal of around 1.6 L of pleural fluid. Patient was also started treatment for Covid with the Decadron, vitamin C vitamin D3 and zinc. Patient's pulse oxygen requirement is slowly been going up. Admitted with right pleural effusion secondary to carcinoma. Acute hypoxic respiratory failure. Hyponatremia. Also suspected to have secondary right lower lobe pneumonia for which he started and antibiotics including ceftriaxone and Zithromax Today: Reclining in bed. Tired. Congested cough. On 15 L of nonrebreather. Poor oral intake. Short of breath Review of systems: Was done for constitutional, cardiovascular, GI, pulmonary. relevant finding as above Active Medications Acetaminophen (Acetaminophen Tab 325 Mg Tab) 650 mg PO Q4HR PRN PRN Reason: Fever and/ or Pain Last Admin: 06/25/20 09:33 Dose: 650 mg Documented by: Albuterol Sulfate (Albuterol Hfa Inhaler) 2 puff INHALATION RT-QID PRN PRN Reason: Shortness Of Breath Or Wheezing Last Admin: 06/26/20 16:07 Dose: 2 puff Documented by: Amlodipine Besylate (Amlodipine 10 Mg Tab) 10 mg PO DAILY [facility] Last Admin: 06/26/20 08:49 Dose: 10 mg Documented by: Amoxicillin/Clavulanate Potassium (Amoxic-Pot Clav 875-125mg 1 Each Tab) 1 each PO Q12HR [facility] Ascorbic Acid (Ascorbic Acid 500 Mg Tab) 1,000 mg PO DAILY [facility] Last Admin: 06/26/20 08:49 Dose: 1,000 mg Documented by: Atorvastatin Calcium (Atorvastatin 20 Mg Tab) 20 mg PO HS [facility] Last Admin: 06/25/20 21:10 Dose: 20 mg Documented by: Cholecalciferol (Cholecalciferol 25 Mcg (1000 Iu) Tablet) 125 mcg PO DAILY [facility] Last Admin: 06/26/20 08:48 Dose: 125 mcg Documented by: Enoxaparin Sodium (Enoxaparin 30 Mg/0.3 Ml Syringe) 30 mg SQ BID [facility] Last Admin: 06/26/20 08:50 Dose: 30 mg Documented by: Famotidine (Famotidine 20 Mg Tab) 40 mg PO DAILY [facility] Last Admin: 06/26/20 08:49 Dose: 40 mg Documented by: Fluticasone Propionate (Fluticasone 110 Mcg Inhaler) 2 puff INHALATION RT-BID [facility] Last Admin: 06/26/20 07:44 Dose: 2 puff Documented by: Guaifenesin (Guaifenesin 600 Mg Tablet.Er) 1,200 mg PO Q12HR [facility] Guaifenesin/Dextromethorphan (Guaifenesin-Dm 100-10mg/5ml 10 Ml Cup) 10 ml PO Q6H PRN PRN Reason: Cough Last Admin: 06/26/20 11:56 Dose: 10 ml Documented by: Insulin Aspart (Insulin Aspart (Novolog) 100 Unit/Ml Vial) 0 unit SQ [facility]; Protocol Last Admin: 06/26/20 17:46 Dose: 8 unit Documented by: Levothyroxine Sodium (Levothyroxine 100 Mcg Tab) 100 mcg PO 0630 [facility] Last Admin: 06/26/20 06:02 Dose: 100 mcg Documented by: Lorazepam (Lorazepam 0.5 Mg Tab) 0.5 mg PO Q8H PRN PRN Reason: Anxiety Last Admin: 06/26/20 11:56 Dose: 0.5 mg Documented by: Methylprednisolone Sodium Succinate (Methylprednisolone Sod Succi 125 Mg/2 Ml Vial) 60 mg IV Q6HR [facility] Last Admin: 06/26/20 17:46 Dose: 60 mg Documented by: Metoclopramide HCl (Metoclopramide 5 Mg Tab) 5 mg PO TID PRN PRN Reason: Nausea Last Admin: 06/20/20 12:13 Dose: 5 mg Documented by: Morphine Sulfate (Morphine Sulfate 2 Mg/Ml Syringe) 2 mg IVP Q4H PRN PRN Reason: Pain/Discomfort Last Admin: 06/26/20 20:39 Dose: 2 mg Documented by: Naloxone HCl (Naloxone 0.4 Mg/Ml 1 Ml Vial) 0.2 mg IV Q2M PRN PRN Reason: Opioid Reversal Non-Formulary Medication (Exenatide Microspheres [Bydureon Pen]) 2 mg SQ [place] [facility] Last Admin: 06/23/20 09:35 Dose: Not Given Documented by: Nystatin (Nystatin 100,000 Unit/Ml Susp 500,000 Unit/5 Ml Cup) 500,000 unit PO QID [facility] Last Admin: 06/26/20 17:46 Dose: 500,000 unit Documented by: Ondansetron HCl (Ondansetron 4 Mg/2 Ml Vial) 4 mg IVP Q6HR PRN PRN Reason: Nausea And Vomiting Last Admin: 06/26/20 20:39 Dose: 4 mg Documented by: Pantoprazole Sodium (Pantoprazole 40 Mg Tablet) 40 mg PO HS [facility] Last Admin: 06/25/20 21:10 Dose: 40 mg Documented by: Tiotropium [place] (Tiotropium 2.5 Mcg Inhaler) 2 puff INHALATION RT-DAILY PRN PRN Reason: Shortness Of Breath Or Wheezing Last Admin: 06/26/20 07:44 Dose: 2 puff Documented by: Zinc Sulfate (Zinc Sulfate 220 Mg Cap) 220 mg PO DAILY [facility] Last Admin: 06/26/20 08:49 Dose: 220 mg Documented by: On examination: VITAL SIGNS: 97.8, 81, 17, 120/60, 91% on 15 L rebreather GENERAL APPEARANCE: Reclining in bed, tired. RESPIRATORY: Respiratory effort increased , using accessory muscles NEUROLOGICAL: No facial asymmetry. Moving all 4 limbs PSYCHIATRY: Alert and oriented x3. Mood and affect anxious Rest of exam as per pulmonary and nursing INVESTIGATIONS, reviewed in the clinical context: June 26: D-dimer 4.26 CRP 140.5 Chest x-ray film personally reviewed by me-/June 26: Right lung mass. Bilateral infiltrates June 25: D-dimer 2.3 potassium 4 creatinine 0.5 CRP 7.8 Sodium 136 potassium 4.2 creatinine 0.51 WBC 3.6 hemoglobin 10.5 Pro-calcitonin 0.2 to D-dimer 5.44 CRP 44 Chest x-ray film personally reviewed by me-diffuse bilateral infiltrates Assessment and plan: -Acute hypoxic respiratory failure: Secondary to right-sided pleural effusion and COVID 19 : Not improving Continue with oxygen supplementation. Currently at high flow 15 L, nonrebreather - malignant pleural effusion recurrent pleural effusion because of which a thoracic surgery evaluated the patient as patient the is found to have Covid 19 and they recommended just a regular Thotacentesis and if this recurs then Pleurx catheter will be considered at that time. Patient is status post rmoval of 1.6 L of pleural fluid. Slow to respond -Covid 19 pneumonia leading to hypoxic respiratory failure, not improving On dexamethasone, Lovenox -Adenocarcinoma of the right lung MRI negative for metastasis to the brain , during her last hospitalization . Molecular testing has been requested on biopsy specimen by oncology. Given patient's COVID 19 and probably status post unable to offer any further treatment for the present time -Hypervolemic hyponatremia improved with IV Lasix, may have diastolic dysfunction with acute exacerbation. Presently appears to be euvolemic -Type 2 diabetes mellitus, uncontrolled with hyperglycemia Follow Accu-Cheks -Essential Hypertension Continue with amlodipine -COPD with acute exacerbation on inhalational treatments. , on Decadron -CODE STATUS DO NOT RESUSCITATE Advanced care planning: Patient's daughter at phone and from [place], patient's daughter who stays locally and her son and the patient I had a family meeting. It was explained that patient's overall prognosis is rather guarded given adenocarcinoma with extensive. Also given upon be started because of COVID 19 options available limited. Patient's 84 years of age and is rather fragile. It was decided that we'll see how the patient doesn't make 24-48 hours. If no significant improvement or further declined and hospice is to be considered. If any improvement then we'll take it accordingly. Everybody seems to be in the same page especially the patient. If she decides to choose hospice she wants to go home and patient's family's able to support the same. Patient is a DO NOT RESUSCITATE. Time spent for a CPE about 25 minutes
[2020-06-26 21:10] LABS: Glucose,Whole Blood 212 mg/dL (75-99)
[2020-06-26] MEDS: AMOXIC-POT CLAV 875-125MG 1 EACH TAB PO SCH (22:05)
[2020-06-26] MEDS: guaiFENesin 600 MG TABLET.ER PO SCH (22:05)
[2020-06-26] MEDS: ATORVASTATIN 20 MG TAB PO SCH (22:05)
[2020-06-26] MEDS: PANTOPRAZOLE 40 MG TABLET PO SCH (22:05)
[2020-06-27] MEDS: methylPREDNISolone SOD SUCCI 125 MG/2 ML VIAL IV SCH ×4 (00:45→17:17)
[2020-06-27] MEDS: MORPHINE SULFATE 2 MG/ML SYRINGE IVP PRN ×2 (00:52→22:38)
[2020-06-27] MEDS: LEVOTHYROXINE 100 MCG TAB PO SCH (06:19)
[2020-06-27 07:14] LABS: Glucose,Whole Blood 266 mg/dL (75-99)
[2020-06-27] MEDS: FAMOTIDINE 20 MG TAB PO SCH (07:45)
[2020-06-27] MEDS: amLODIPine 10 MG TAB PO SCH (07:45)
[2020-06-27] MEDS: ENOXAPARIN 30 MG/0.3 ML SYRINGE SQ SCH ×2 (07:45→21:31)
[2020-06-27] MEDS: ZINC SULFATE 220 MG CAP PO SCH (07:45)
[2020-06-27] MEDS: CHOLECALCIFEROL 25 MCG (1000 IU) TABLET PO SCH (07:46)
[2020-06-27] MEDS: INSULIN ASPART (NovoLOG) 100 UNIT/ML VIAL SQ SCH ×4 (07:46→21:32)
[2020-06-27] MEDS: ASCORBIC ACID 500 MG TAB PO SCH (07:46)
[2020-06-27] MEDS: guaiFENesin 600 MG TABLET.ER PO SCH ×2 (07:46→21:32)
[2020-06-27] MEDS: NYSTATIN 100,000 UNIT/ML SUSP 500,000 UNIT/5 ML CUP PO SCH ×4 (07:47→22:36)
[2020-06-27] MEDS: AMOXIC-POT CLAV 875-125MG 1 EACH TAB PO SCH ×2 (07:47→21:32)
[2020-06-27] MEDS: ALBUTEROL HFA INHALER INHALATION PRN ×4 (08:00→19:17)
[2020-06-27] MEDS: TIOTROPIUM 2.5 MCG INHALER INHALATION PRN (08:00)
[2020-06-27] MEDS: FLUTICASONE 110 MCG INHALER INHALATION SCH ×2 (08:00→19:17)
--- NOTE | 2020-06-27 11:32 | P.PN ---
Subjective Progress Note Date: 06/27/20 Principal diagnosis: Acute hypoxic failure secondary to acute covid 19 pneumonia and acute exacerbation of COPD, and underlying lung cancer. 84-year-old female who presented to the emergency department on June 18, with chief complaints of increasing shortness of breath. The patient was recently discharged from the hospital about 4 days ago having had a pneumonia and pleural effusion. She had a right-sided thoracentesis. Also, on June 10, she underwent bronchoscopy with biopsy by Dr. Rodriguez. My nurse practitioner tells me that the pathology came back positive for adenocarcinoma. Some of the biopsies are currently pending. I'm not sure if the fluid was sent for cy tology. The thoracentesis was done by interventional radiology. Anyway when she presented to the emergency department, her saturations are only 84% on room air. She was quite short of breath. She was coughing. She hasn't been feeling well for about 2 weeks now. She states that she tested positive for coronavirus just today. She apparently has a history of COPD/asthma, diabetes, acid reflux disease, and was also recently found to have a large mass in the right upper lobe. She also has a history of hypothyroidism, hyperlipidemia, and hypertension. White count is 5, he will become 0.4, hematocrit 33.9, and platelet count 209,000. Sodium 138, potassium 4.1, chlorides 101, CO2 33, anion gap 4, BUN 5, and creatinine 0.5. Urine was positive for leukocyte esterase, with rare bacteria, and 1 WBC. Chest x-ray shows a right-sided pleural effusion, with some basilar atelectasis and collapse. The pocket of fluid on the right side is 9.3 cm. The patient is seen today 06/20/2020 in follow-up on the regular medical floor. She is currently resting comfortably in bed. Awake and alert in no acute distress. Chest x-ray continues to revealed feel the right upper lobe mass which is confirmed adenocarcinoma. Improved aeration of the right lower lobe post thoracentesis. Bibasilar atelectasis. No pneumothorax. Repeat thoracentesis was performed yesterday with 1.7 L of dark yellow fluid removed. Plan was for Pleurx catheter placement however the patient is positive for CoVID 19. She remains on 6 L high flow nasal cannula to maintain O2 saturations in the 90s. White count 5.5. Hemoglobin 11.3. Lymphocytes 0.3. Sodium 132. Potassium 4.0. Creatinine 0.46. She remains on Decadron, Lovenox, vitamin supplements. The patient is seen today 06/21/2020 in follow-up on the regular medical floor. She is awake and alert in no acute distress. Currently resting fairly comfort ably in bed. Doing a little better today compared to yesterday. Less short of breath. Feeling a bit stronger. Down to 4 L nasal cannula and maintaining O2 saturations in the 90s. Chest x-ray showing stable density in the right upper lobe. There is some recurrent effusion. Some increased density of the right lower lobe. White count 3.6. Hemoglobin 10.5. Lymphocytes 0.4. D-dimer 5.44. Sodium 135. Potassium 2.5. Creatinine 0.51. LDH 701. C-reactive protein 44. She is on Lovenox 30 mg daily, dexamethasone, vitamin supplements. The patient is seen today 06/22/2020 in follow-up on the regular medical floor. She is currently up ambulating in her room. Awake and alert in no acute distress. Breathing better today compared to yesterday. She is currently on 4 liters per minute per nasal cannula. She remains on ceftriaxone and azithromycin. Continued on Lovenox, dexamethasone, vitamin supplements. Sodium 136. Potassium 4.2. Creatinine 0.51. Glucose 171. The patient is seen today 06/23/2020 in follow-up on the regular medical floor. She is currently resting comfortably in bed. Awake and alert in no acute distress. She is having some increasing shortness of breath however, continued with a cough and congestion. She is having some complaints of thrush in her mout h. She is currently on 12 L high flow nasal cannula. Glucose 189. He remains on ceftriaxone, azithromycin. Continued on dexamethasone, Lovenox, vitamin supplements. On 06/25/2023 patient seen in follow-up on medical floor, patient is currently on 15 L high flow per partial rebreather, and her pulse ox is between 89-93%, she does desaturate with exertion. No compressive chest discomfort, or h emoptysis, no fever, no nausea vomiting, she is generally very weak. She was diagnosed with Covid 19 pneumonia, she does have adenocarcinoma of the lungs, awaiting to get stronger to start treatment. Today's chest x-ray shows diffuse bilateral infiltrates with some progression on the left, and subpleural fluid collection or mass on the right. MRI of the brain was negative for intracranial metastasis. Patient remains on Lovenox 30 mg twice daily, Decadron vitamins, patient is on empiric antibiotics in the form of ceftriaxone and azithromycin. Procalcitonin level was low at 0.22, and we will stop the antibiotics On 06/25/2020 patient seen in follow-up on medical floor, remains on 15 L high flow, and nonrebreather, her pulse ox is marginal, at 90%, she appears very weak, fatigued, but no acute distress DuoNeb. She continues on oral dexamethasone, vitamins, and vitamins in the form of ceftriaxone and Rocephin have been discontinued. Her inflammatory markers are improving, LDH is down to 453, CRP is 7.8, purple calcitonin level was low at 0.22, d-dimer is trending down, and is at 2.36 on today's labs, electrolytes are within normal limits, BUN is 11, creatinine 0.5. Patient's brother is at the bedside, patient's family along with the patient decided on DO NOT RESUSCITATE CODE STATUS, we'll continue supportive treatment, and a follow-up chest x-ray tomorrow On 06/26/2020 patient seen in follow-up on medical floor. She appears a bit more upbeat, and conversant today, although still requiring high flow oxygen, she is on 15 L high flow nasal cannula, her pulse ox is 91%, and she also has 100% nonrebreather mask on top of it, she has a loose congested cough, lung sounds are coarse, and patient is at times bringing up some whitish yellowish colored sputum, she has been afebrile. Denies any chest pain or hemoptysis, today's chest x-ray showing diffuse bilateral infiltrates with right lung mass involving the right lung. Today's labs have been reviewed, showing d-dimer which has creased to 4.26 from 2.36 on yesterday's labs, CRP is up to 140.5 from 7.8, and LDH is pending. The patient is more congested, and wheezy, she has been on oral Decadron. Patient's daughter is at the bedside she is here from [place] she was updated in the patient's condition, patient is generally weak, still requiring high flow oxygen, patient is hoping to get to the point when she can receive treatment for her underlying lung cancer. Patient was reevaluated today on 06/27/2020, continues to require significant amount of oxygenation she is now on 15 L/nonrebreather mask, and her O2 saturations 92% only. Apparently the issue of hospice was brought up with the family yesterday, and the patient seems to be quite agreeable to proceed with hospice. I believe considering her underlying metastatic lung cancer, this is not a bad idea. I honestly feel it would be best to pursue the issue of hospice at this point. Objective - Vital Signs Vital signs: Vital Signs Temp 99.2 F 06/27/20 10:00 Pulse 87 06/27/20 10:00 Resp 20 06/27/20 10:00 BP 107/56 06/27/20 10:00 Pulse Ox 92 L 06/27/20 10:00 Intake & Output 06/26/20 06/27/20 06/27/20 18:59 06:59 18:59 Intake Total 500 Balance 500 Weight 58.967 kg Intake: Oral 500 Other: Voiding Method Bedpan Bedpan # Voids 3 - Exam GENERAL EXAM: Alert, pleasant, frail 84-year-old female patient, on high flow oxygen and nonrebreather mask. HEAD: Normocephalic. EYES: Normal reaction of pupils, equal size. NOSE: Clear with pink turbinates. THROAT: No erythema or exudates. NECK: No masses, no JVD. CHEST: No chest wall deformity. LUNGS: Equal air entry with bibasilar crackles right greater than left. CVS: S1 and S2 normal with no audible murmur, regular rhythm. ABDOMEN: No hepatosplenomegaly, normal bowel sounds, no guarding or rigidity. SPINE: No scoliosis or deformity SKIN: No rashes CENTRAL NERVOUS SYSTEM: No focal deficits, tone is normal in all 4 extremities. EXTREMITIES: There is no peripheral edema. No clubbing, no cyanosis. Peripheral pulses are intact. - Labs CBC & Chem 7: 06/21/20 07:24 06/25/20 06:09 Labs: Abnormal Lab Results - Last 24 Hours (Table) 06/26/20 06/26/20 06/26/20 Range/Units 06:36 11:57 16:55 D-Dimer (<0.60) mg/L FEU POC Glucose (mg/dL) 210 H 263 H (75-99) mg/dL C-Reactive Protein (<10.0) mg/L Procalcitonin 0.23 H (0.02-0.09) ng/mL 06/26/20 06/27/20 06/27/20 Range/Units 21:04 05:01 05:01 D-Dimer 5.03 H (<0.60) mg/L FEU POC Glucose (mg/dL) 212 H (75-99) mg/dL C-Reactive Protein 56.2 H (<10.0) mg/L Procalcitonin (0.02-0.09) ng/mL 06/27/20 Range/Units 07:12 D-Dimer (<0.60) mg/L FEU POC Glucose (mg/dL) 266 H (75-99) mg/dL C-Reactive Protein (<10.0) mg/L Procalcitonin (0.02-0.09) ng/mL Assessment and Plan Assessment: 1 Acute right acute hypoxemic respiratory failure secondary to acute CoVID 19 i nfection complicated by adenocarcinoma of the right lung, right sided pleural effusion. 2 Recurrent right-sided pleural effusion, status post thoracentesis on 06/19/2020 with 1.7 L of fluid removed 3 Recent diagnosis of lung cancer, adenocarcinoma post biopsy 06/11/2020 4 Hypertension 5 Hyperlipidemia 6 Diabetes mellitus 7 Chronic obstructive pulmonary disease/asthma 8 Gastroesophageal reflux disease 9 Of his history of chronic tobacco dependence 10 Osteoporosis Recommendation: Continue present supportive care measures, However I believe it is best to pursue the issue of hospice in this patient, Prognosis is extremely poor. Hospice would be the most appropriate to do at this point.
[2020-06-27 11:55] LABS: Glucose,Whole Blood 215 mg/dL (75-99)
[2020-06-27] MEDS: ACETAMINOPHEN TAB 325 MG TAB PO PRN (13:32)
[2020-06-27 16:55] LABS: Glucose,Whole Blood 269 mg/dL (75-99)
[2020-06-27 20:36] LABS: Glucose,Whole Blood 296 mg/dL (75-99)
[2020-06-27] MEDS: ATORVASTATIN 20 MG TAB PO SCH (21:32)
[2020-06-27] MEDS: PANTOPRAZOLE 40 MG TABLET PO SCH (21:33)
--- NOTE | 2020-06-27 22:17 | P.PN ---
Progress Note - Text Progress Note Date: 06/27/20 History of presenting complaint 82-year-old female was admitted for right-sided pleural effusion secondary to adenocarcinoma of the right lung. Patient had recurrent pleural effusion was evaluated by cardiothoracic surgery for Pleurx catheter placement since the patient ended up being diagnosed with Covid 19, they recommended thoracentesis, patient underwent removal of around 1.6 L of pleural fluid. Patient was also started treatment for Covid with the Decadron, vitamin C vitamin D3 and zinc. Patient's pulse oxygen requirement is slowly been going up. Admitted with right pleural effusion secondary to carcinoma. Acute hypoxic respiratory failure. Hyponatremia. Also suspected to have secondary right lower lobe pneumonia for which he started and antibiotics including ceftriaxone and Zithromax Today: A bit more cheerful today. Short of breath. Requiring high flow oxygen. Did eat some. Patient's 2 daughters and son at the bedside. Earlier liaison from [facility] had spoken to the family and and decided to proceed with comfort measures. When I arrived, the nurse expressed concerned about ethical issues about getting the same. I did reassure the nurse that the consultation was done for hospice information only. Patient the nurse was pablo stuart. Had a lengthy discussion with the patient's family and the patient again in the treating 1. Discussed yesterday that depending on patient's clinical course we'll decide whether we will make a GI if her symptoms were to progress rapidly and she is in distress or she can go homeopathic auctioned requirement goes down. At this point patient is actively eating able to communicate, able to carry on a conversation. Total of 45 minutes was spent with over 25% discussion Review of systems: Was done for constitutional, cardiovascular, GI, pulmonary. relevant finding as above Active Medications Acetaminophen (Acetaminophen Tab 325 Mg Tab) 650 mg PO Q4HR PRN PRN Reason: Fever and/ or Pain Last Admin: 06/27/20 13:32 Dose: 650 mg Documented by: Albuterol Sulfate (Albuterol Hfa Inhaler) 2 puff INHALATION RT-QID PRN PRN Reason: Shortness Of Breath Or Wheezing Last Admin: 06/27/20 19:17 Dose: 2 puff Documented by: Amlodipine Besylate (Amlodipine 10 Mg Tab) 10 mg PO DAILY YUMIKO Last Admin: 06/27/20 07:45 Dose: 10 mg Documented by: Amoxicillin/Clavulanate Potassium (Amoxic-Pot Clav 875-125mg 1 Each Tab) 1 each PO Q12HR [facility] Last Admin: 06/27/20 21:32 Dose: 1 each Documented by: Ascorbic Acid (Ascorbic Acid 500 Mg Tab) 1,000 mg PO DAILY [facility] Last Admin: 06/27/20 07:46 Dose: 1,000 mg Documented by: Atorvastatin Calcium (Atorvastatin 20 Mg Tab) 20 mg PO HS [facility] Last Admin: 06/27/20 21:32 Dose: 20 mg Documented by: Cholecalciferol (Cholecalciferol 25 Mcg (1000 Iu) Tablet) 125 mcg PO DAILY [facility] Last Admin: 06/27/20 07:46 Dose: 125 mcg Documented by: Enoxaparin Sodium (Enoxaparin 30 Mg/0.3 Ml Syringe) 30 mg SQ BID [facility] Last Admin: 06/27/20 21:31 Dose: 30 mg Documented by: Famotidine (Famotidine 20 Mg Tab) 40 mg PO DAILY [facility] Last Admin: 06/27/20 07:45 Dose: 40 mg Documented by: Fluticasone Propionate (Fluticasone 110 Mcg Inhaler) 2 puff INHALATION RT-BID [facility] Last Admin: 06/27/20 19:17 Dose: 2 puff Documented by: Guaifenesin (Guaifenesin 600 Mg Tablet.Er) 1,200 mg PO Q12HR [facility] Last Admin: 06/27/20 21:32 Dose: 1,200 mg Documented by: Guaifenesin/Dextromethorphan (Guaifenesin-Dm 100-10mg/5ml 10 Ml Cup) 10 ml PO Q6H PRN PRN Reason: Cough Last Admin: 06/26/20 22:06 Dose: 10 ml Documented by: Insulin Aspart (Insulin Aspart (Novolog) 100 Unit/Ml Vial) 0 unit SQ [facility]; Protocol Last Admin: 06/27/20 21:32 Dose: 8 unit Documented by: Levothyroxine Sodium (Levothyroxine 100 Mcg Tab) 100 mcg PO 0630 [facility] Last Admin: 06/27/20 06:19 Dose: 100 mcg Documented by: Lorazepam (Lorazepam 0.5 Mg Tab) 0.5 mg PO Q8H PRN PRN Reason: Anxiety Last Admin: 06/26/20 11:56 Dose: 0.5 mg Documented by: Methylprednisolone Sodium Succinate (Methylprednisolone Sod Succi 125 Mg/2 Ml Vial) 60 mg IV Q6HR [facility] Last Admin: 06/27/20 17:17 Dose: 60 mg Documented by: Metoclopramide HCl (Metoclopramide 5 Mg Tab) 5 mg PO TID PRN PRN Reason: Nausea Last Admin: 06/20/20 12:13 Dose: 5 mg Documented by: Morphine Sulfate (Morphine Sulfate 2 Mg/Ml Syringe) 2 mg IVP Q4H PRN PRN Reason: Pain/Discomfort Last Admin: 06/27/20 00:52 Dose: 2 mg Documented by: Naloxone HCl (Naloxone 0.4 Mg/Ml 1 Ml Vial) 0.2 mg IV Q2M PRN PRN Reason: Opioid Reversal Non-Formulary Medication (Exenatide Microspheres [Bydureon Pen]) 2 mg SQ [place] [facility] Last Admin: 06/23/20 09:35 Dose: Not Given Documented by: Nystatin (Nystatin 100,000 Unit/Ml Susp 500,000 Unit/5 Ml Cup) 500,000 unit PO QID [facility] Last Admin: 06/27/20 17:17 Dose: 500,000 unit Documented by: Ondansetron HCl (Ondansetron 4 Mg/2 Ml Vial) 4 mg IVP Q6HR PRN PRN Reason: Nausea And Vomiting Last Admin: 06/26/20 20:39 Dose: 4 mg Documented by: Pantoprazole Sodium (Pantoprazole 40 Mg Tablet) 40 mg PO HS [facility] Last Admin: 06/27/20 21:33 Dose: 40 mg Documented by: Tiotropium [place] (Tiotropium 2.5 Mcg Inhaler) 2 puff INHALATION RT-DAILY PRN PRN Reason: Shortness Of Breath Or Wheezing Last Admin: 06/27/20 08:00 Dose: 2 puff Documented by: Zinc Sulfate (Zinc Sulfate 220 Mg Cap) 220 mg PO DAILY [facility] Last Admin: 06/27/20 07:45 Dose: 220 mg Documented by: On examination: VITAL SIGNS: 97.7, 86, 20, 120/6790% on 15 L nonrebreather GENERAL APPEARANCE: Sitting up in bed, talking, some shortness of breath. RESPIRATORY: Respiratory effort increased , using accessory muscles NEUROLOGICAL: No facial asymmetry. Moving all 4 limbs PSYCHIATRY: Alert and oriented x3. Mood and affect anxious Rest of exam as per pulmonary and nursing INVESTIGATIONS, reviewed in the clinical context: June 27: D-dimer 5 CRP 56 June 26: D-dimer 4.26 CRP 140.5 Chest x-ray film personally reviewed by me-/June 26: Right lung mass. Bilateral infiltrates June 25: D-dimer 2.3 potassium 4 creatinine 0.5 CRP 7.8 Sodium 136 potassium 4.2 creatinine 0.51 WBC 3.6 hemoglobin 10.5 Pro-calcitonin 0.2 to D-dimer 5.44 CRP 44 Chest x-ray film personally reviewed by me-diffuse bilateral infiltrates Assessment and plan: -Acute hypoxic respiratory failure: Secondary to right-sided pleural effusion and COVID 19 : Not improving Continue with oxygen supplementation. Currently at high flow 15 L, nonrebreather - malignant pleural effusion recurrent pleural effusion because of which a thoracic surgery evaluated the patient as patient the is found to have Covid 19 and they recommended just a regular Thotacentesis and if this recurs then Pleurx catheter will be considered at that time. Patient is status post rmoval of 1.6 L of pleural fluid. Slow to respond -Covid 19 pneumonia leading to hypoxic respiratory failure, not improving On dexamethasone, Lovenox -Adenocarcinoma of the right lung MRI negative for metastasis to the brain , during her last hospitalization . Molecular testing has been requested on biopsy specimen by oncology. Given patient's COVID 19 and probably status post unable to offer any further treatment for the present time -Hypervolemic hyponatremia improved with IV Lasix, may have diastolic dysfunction with acute exacerbation. Presently appears to be euvolemic -Type 2 diabetes mellitus, uncontrolled with hyperglycemia Follow Accu-Cheks -Essential Hypertension Continue with amlodipine -COPD with acute exacerbation on inhalational treatments. , on Decadron -CODE STATUS DO NOT RESUSCITATE Additionally I spoke to Janeth from oncology. Agreeable to the current plan. Also spoke to Han Kruse, from pulmonary. Agreeable to same. We will continue current medication treatment plan. I did inform that is all from [facility] to check from day to day with us regarding patient's progress. Patient's family in full understanding of the plan.
[2020-06-27] MEDS: guaiFENesin-DM 100-10MG/5ML 10 ML CUP PO PRN (22:38)
[2020-06-28] MEDS: methylPREDNISolone SOD SUCCI 125 MG/2 ML VIAL IV SCH ×4 (00:58→17:18)
[2020-06-28] MEDS: MORPHINE SULFATE 2 MG/ML SYRINGE IVP PRN ×4 (04:04→22:35)
[2020-06-28] MEDS: LEVOTHYROXINE 100 MCG TAB PO SCH (06:06)
[2020-06-28] MEDS: LORazepam 0.5 MG TAB PO PRN ×3 (06:15→22:35)
[2020-06-28 06:59] LABS: Glucose,Whole Blood 235 mg/dL (75-99)
[2020-06-28] MEDS: FLUTICASONE 110 MCG INHALER INHALATION SCH ×2 (07:19→20:24)
[2020-06-28] MEDS: TIOTROPIUM 2.5 MCG INHALER INHALATION PRN (07:19)
[2020-06-28] MEDS: ALBUTEROL HFA INHALER INHALATION PRN ×3 (07:19→20:24)
[2020-06-28] MEDS: CHOLECALCIFEROL 25 MCG (1000 IU) TABLET PO SCH (07:27)
[2020-06-28] MEDS: ZINC SULFATE 220 MG CAP PO SCH (07:27)
[2020-06-28] MEDS: amLODIPine 10 MG TAB PO SCH (07:27)
[2020-06-28] MEDS: FAMOTIDINE 20 MG TAB PO SCH ×2 (07:28→07:38)
[2020-06-28] MEDS: ASCORBIC ACID 500 MG TAB PO SCH (07:28)
[2020-06-28] MEDS: AMOXIC-POT CLAV 875-125MG 1 EACH TAB PO SCH (07:28)
[2020-06-28] MEDS: guaiFENesin-DM 100-10MG/5ML 10 ML CUP PO PRN ×2 (07:28→22:23)
[2020-06-28] MEDS: ENOXAPARIN 30 MG/0.3 ML SYRINGE SQ SCH (07:28)
[2020-06-28] MEDS: guaiFENesin 600 MG TABLET.ER PO SCH (07:28)
[2020-06-28] MEDS: INSULIN ASPART (NovoLOG) 100 UNIT/ML VIAL SQ SCH ×3 (07:30→17:10)
[2020-06-28] MEDS: NYSTATIN 100,000 UNIT/ML SUSP 500,000 UNIT/5 ML CUP PO SCH ×3 (07:32→17:11)
--- NOTE | 2020-06-28 08:53 | XR ---
EXAMINATION TYPE: XR chest 1V portable DATE OF EXAM: 06/28/2020 COMPARISON: 06/26/2020 HISTORY: Difficulty breathing TECHNIQUE: Single frontal view of the chest is obtained. FINDINGS: Diffuse bilateral infiltrates stable. Heart size stable. No pneumothorax. Chronic rib defo rmity and left humeral deformity compatible with remote trauma stable. Atherosclerotic change aorta. Surgical the abdomen. IMPRESSION: Diffuse bilateral infiltrate stable
[2020-06-28 11:11] LABS: Glucose,Whole Blood 187 mg/dL (75-99)
[2020-06-28 16:32] LABS: Glucose,Whole Blood 159 mg/dL (75-99)
--- NOTE | 2020-06-28 17:00 | P.PN ---
Subjective Progress Note Date: 06/28/20 Principal diagnosis: COVID 19 pneumonia, adenocarcinoma of the lung, pleural effusion 84-year-old female who presented to the emergency department on June 18, with chief complaints of increasing shortness of breath. The patient was recently discharged from the hospital about 4 days ago having had a pneumonia and pleural effusion. She had a right-sided thoracentesis. Also, on June 10, she underwent bronchoscopy with biopsy by Dr. Rodriguez. My nurse practitioner tells me that the pathology came back positive for adenocarcinoma. Some of the biopsies are currently pending. I'm not sure if the fluid was sent for cytology. The thoracentesis was done by interventional radiology. Anyway when she presented to the emergency department, her saturations are only 84% on room air. She was quite short of breath. She was coughing. She hasn't been feeling well for about 2 weeks now. She states that she tested positive for coronavirus just today. She apparently has a history of COPD/asthma, diabetes, acid reflux disease, and was also recently found to have a large mass in the right upper lobe. She also has a history of hypothyroidism, hyperlipidemia, and hyperten lora. White count is 5, he will become 0.4, hematocrit 33.9, and platelet count 209,000. Sodium 138, potassium 4.1, chlorides 101, CO2 33, anion gap 4, BUN 5, and creatinine 0.5. Urine was positive for leukocyte esterase, with rare bacteria, and 1 WBC. Chest x-ray shows a right-sided pleural effusion, with some basilar atelectasis and collapse. The pocket of fluid on the right side is 9.3 cm. The patient is seen today 06/20/2020 in follow-up on the regular medical floor. She is currently resting comfortably in bed. Awake and alert in no acute distress. Chest x-ray continues to revealed feel the right upper lobe mass which is confirmed adenocarcinoma. Improved aeration of the right lower lobe post thoracentesis. Bibasilar atelectasis. No pneumothorax. Repeat thoracentesis was performed yesterday with 1.7 L of dark yellow fluid removed. Plan was for Pleurx catheter placement however the patient is positive for CoVID 19. She remains on 6 L high flow nasal cannula to maintain O2 saturations in the 90s. White count 5.5. Hemoglobin 11.3. Lymphocytes 0.3. Sodium 132. Pot assium 4.0. Creatinine 0.46. She remains on Decadron, Lovenox, vitamin supplements. The patient is seen today 06/21/2020 in follow-up on the regular medical floor. She is awake and alert in no acute distress. Currently resting fairly comfortably in bed. Doing a little better today compared to yesterday. Less short of breath. Feeling a bit stronger. Down to 4 L nasal cannula and maintaining O2 saturations in the 90s. Chest x-ray showing stable density in the right upper lobe. There is some recurrent effusion. Some increased density of the right lower lobe. White count 3.6. Hemoglobin 10.5. Lymphocytes 0.4. D-dimer 5.44. Sodium 135. Potassium 2.5. Creatinine 0.51. LDH 701. C- reactive protein 44. She is on Lovenox 30 mg daily, dexamethasone, vitamin supplements. The patient is seen today 06/22/2020 in follow-up on the regular medical floor. She is currently up ambulating in her room. Awake and alert in no acute distress. Breathing better today compared to yesterday. She is currently on 4 liters per minute per nasal cannula. She remains on ceftriaxone and azit hromycin. Continued on Lovenox, dexamethasone, vitamin supplements. Sodium 136. Potassium 4.2. Creatinine 0.51. Glucose 171. The patient is seen today 06/23/2020 in follow-up on the regular medical floor. She is currently resting comfortably in bed. Awake and alert in no acute distress. She is having some increasing shortness of breath however, continued with a cough and congestion. She is having some complaints of thrush in her mouth. She is currently on 12 L high flow nasal cannula. Glucose 189. He remains on ceftriaxone, azithromycin. Continued on dexamethasone, Lovenox, vitamin supplements. On 06/25/2023 patient seen in follow-up on medical floor, patient is currently on 15 L high flow per partial rebreather, and her pulse ox is between 89-93%, she does desaturate with exertion. No compressive chest discomfort, or hemoptysis, no fever, no nausea vomiting, she is generally very weak. She was diagnosed with Covid 19 pneumonia, she does have adenocarcinoma of the lungs, awaiting to get stronger to start treatment. Today's chest x-ray shows diffuse bilateral infiltrates with some progression on the left, and subpleural fluid collection or mass on the right. MRI of the brain was negative for intracranial metastasis. Patient remains on Lovenox 30 mg twice daily, Decadron vitamins, patient is on empiric antibiotics in the form of ceftriaxone and azithromycin. Procalcitonin level was low at 0.22, and we will stop the antibiotics On 06/25/2020 patient seen in follow-up on medical floor, remains on 15 L high flow, and nonrebreather, her pulse ox is marginal, at 90%, she appears very weak, fatigued, but no acute distress DuoNeb. She continues on oral dexame thasone, vitamins, and vitamins in the form of ceftriaxone and Rocephin have been discontinued. Her inflammatory markers are improving, LDH is down to 453, CRP is 7.8, purple calcitonin level was low at 0.22, d-dimer is trending down, and is at 2.36 on today's labs, electrolytes are within normal limits, BUN is 11, creatinine 0.5. Patient's brother is at the bedside, patient's family along with the patient decided on DO NOT RESUSCITATE CODE STATUS, we'll continue supportive treatment, and a follow-up chest x-ray tomorrow On 06/26/2020 patient seen in follow-up on medical floor. She appears a bit more upbeat, and conversant today, although still requiring high flow oxygen, she is on 15 L high flow nasal cannula, her pulse ox is 91%, and she also has 100% nonrebreather mask on top of it, she has a loose congested cough, lung sounds are coarse, and patient is at times bringing up some whitish yellowish colored sputum, she has been afebrile. Denies any chest pain or hemoptysis, today's chest x-ray showing diffuse bilateral infiltrates with right lung mass involving the right lung. Today's labs have been reviewed, showing d-dimer which has creased to 4.26 from 2.36 on yesterday's labs, CRP is up to 140.5 from 7.8, and LDH is pending. The patient is more congested, and wheezy, she has been on oral Decadron. Patient's daughter is at the bedside she is here from [place] she was updated in the patient's condition, patient is generally weak, still requiring high flow oxygen, patient is hoping to get to the point when she can receive treatment for her underlying lung cancer. On 06/28/2020 patient seen in follow-up on medical floor, she remains on high flow oxygen both with high flow nasal cannula at 15 L, and 100% nonrebreather, her pulse ox is only 85-88%, she is awake and alert, she is talking, and oriented 3, she is short of breath with conversation, and at rest, she is been bedbound, she's been very limited in terms of exercise capability related to severe hypoxia and dyspnea, she remains afebrile, chest x-ray today continues to show diffuse bilateral infiltrates. His labs have been reviewed, showing d- dimer up to 5.03, LDH is 453, CRP is 56.2, pro-calcitonin level was 0.23. Patient is generally weak, she has a loose congested cough, she is unable to bring up any phlegm, lung sounds are positive for diffuse crackles and coarse rhonchi. She continues on oral Augmentin, IV Solu-Medrol. She is on Lovenox 30 mg twice daily. Objective - Vital Signs Vital signs: Vital Signs Temp 98.5 F 06/28/20 14:00 Pulse 87 06/28/20 14:00 Resp 22 06/28/20 14:00 BP 136/71 06/28/20 14:00 Pulse Ox 86 L 06/28/20 14:00 Intake & Output 06/27/20 06/28/20 06/28/20 18:59 06:59 18:59 Output Total 800 Balance -800 Output: Urine 800 Other: Voiding Method Bedpan # Voids 2 - Exam GENERAL EXAM: Alert, debilitated-looking 84-year-old white female, a partial nonrebreather mask at 15 L, 100 percent nonrebreather the pulse ox of 91% comfortable in no apparent distress. HEAD: Normocephalic/atraumatic. EYES: Normal reaction of pupils, equal size. Conjunctiva pink, sclera white. NOSE: Clear with pink turbinates. THROAT: No erythema or exudates. NECK: No masses, no JVD, no thyroid enlargement, no adenopathy. CHEST: No chest wall deformity. Symmetrical expansion. LUNGS: Equal air entry with no crackles, wheeze, rhonchi or dullness. CVS: Regular rate and rhythm, normal S1 and S2, no gallops, no murmurs, no rubs ABDOMEN: Soft, nontender. No hepatosplenomegaly, normal bowel sounds, no guarding or rigidity. EXTREMITIES: No clubbing, no edema, no cyanosis, 2+ pulses and upper and lower extremities. MUSCULOSKELETAL: Muscle strength and tone normal. SPINE: No scoliosis or deformity SKIN: No rashes CENTRAL NERVOUS SYSTEM: Alert and oriented -3. No focal deficits, tone is normal in all 4 extremities. PSYCHIATRIC: Alert and oriented -3. Appropriate affect. Intact judgment and insight. - Labs CBC & Chem 7: 06/21/20 07:24 06/25/20 06:09 Labs: Abnormal Lab Results - Last 24 Hours (Table) 06/27/20 06/27/20 06/28/20 Range/Units 16:52 20:34 06:53 POC Glucose (mg/dL) 269 H 296 H 235 H (75-99) mg/dL 06/28/20 06/28/20 Range/Units 11:05 16:27 POC Glucose (mg/dL) 187 H 159 H (75-99) mg/dL Assessment and Plan Plan: Assessment: #1. Acute hypoxic respiratory failure secondary to acute COVID 19 infection, and acute exacerbation of COPD #2. Non-small cell lung carcinoma of the right lung #3. Recent diagnosis of lung cancer, adenocarcinoma of the right lung post biopsy on 06/11/2020 the right upper lobe mass, with biopsy results positive for invasive non-small cell carcinoma compatible with poorly differentiated pulmonary adenocarcinoma. Patient also had right-sided thoracentesis on 06/11/2020. The pleural fluid cytology was nondiagnostic for malignancy #4. Hypertension #5. Hyperlipidemia #6. Diabetes mellitus type 2 #7. COPD #8. GERD #9. Previous history of chronic tobacco dependence #10. History of right-sided breast cancer status post lumpectomy and radiation treatments in 2009, completed a five-year course of tamoxifen Plan: Patient has failed to make any progress in terms of oxygenation, or dyspnea, [facility] [facility] x-ray still shows bilateral infiltrates related to acute COVID 19 pneumonia, she is quite debilitated, it is doubtful that she will survive this illness, the family and the patient has been with hospice, for information. They're leaning towards hospice and making the patient comfortable, patient made it clear she wants to go home. Although she still is assuming that she will reach a point where she can get treatment for her lung cancer. The family would like to get the patient home. Is recommended that the family discuss this among themselves the goals of treatment, and if they decide to take patient home consider doing so sooner rather than later in view of worsening oxygenation and dyspnea. She can be sent home on supplemental oxygen at 10 L, morphine and anxiolytics, under the hospice care. I performed a history & physical examination of the patient and discussed their management with my nurse practitioner, Aixa Riley. I reviewed the nurse practitioner's note and agree with the documented findings and plan of care. Lung sounds are positive for diminished breath sounds. The findings and the impression was discussed with the patient. I attest to the documentation by the nurse practitioner. Time with Patient: Less than 30
[2020-06-28] MEDS: ONDANSETRON 4 MG/2 ML VIAL IVP PRN (19:59)
[2020-06-28 20:47] LABS: Glucose,Whole Blood 288 mg/dL (75-99)
--- NOTE | 2020-06-28 20:55 | P.PN ---
Progress Note - Text Progress Note Date: 06/28/20 History of presenting complaint 82-year-old female was admitted for right-sided pleural effusion secondary to adenocarcinoma of the right lung. Patient had recurrent pleural effusion was evaluated by cardiothoracic surgery for Pleurx catheter placement since the patient ended up being diagnosed with Covid 19, they recommended thoracentesis, patient underwent removal of around 1.6 L of pleural fluid. Patient was also started treatment for Covid with the Decadron, vitamin C vitamin D3 and zinc. Patient's pulse oxygen requirement is slowly been going up. Admitted with right pleural effusion secondary to carcinoma. Acute hypoxic respiratory failure. Hyponatremia. Also suspected to have secondary right lower lobe pneumonia for which he started and antibiotics including ceftriaxone and Zithromax June 27: A bit more cheerful today. Short of breath. Requiring high flow oxygen. Did eat some. Patient's 2 daughters and son at the bedside. Earlier liaison from [facility] had spoken to the family and and decided to proceed with comfort measures. When I arrived, the nurse expressed concerned about ethical issues about getting the same. I did reassure the nurse that the consultation was done for hospice information only. Patient the nurse was hipolito alarcon. Had a lengthy discussion with the patient's family and the patient again in the treating 1. Discussed yesterday that depending on patient's clinical course we'll decide whether we will make a GI if her symptoms were to progress rapidly and she is in distress or she can go homeopathic auctioned requirement goes down. At this point patient is actively eating able to communicate, able to carry on a conversation. June 28: Sitting up at 15 L of oxygen. High flow. Requesting the oxygen to be reduced she does want to go home. Did explain to her that she cannot be discharged and sent high flow of oxygen. She is eating some. Late in the afternoon patient became a bit anxious. And having some nonspecific pain. Morphine was made more frequent and asked the nurse to give it. Also Ativan was used for anxiety. Review of systems: Was done for constitutional, cardiovascular, GI, pulmonary. relevant finding as above Active Medications Acetaminophen (Acetaminophen Tab 325 Mg Tab) 650 mg PO Q4HR PRN PRN Reason: Fever and/ or Pain Last Admin: 06/27/20 13:32 Dose: 650 mg Documented by: Albuterol Sulfate (Albuterol Hfa Inhaler) 2 puff INHALATION RT-QID PRN PRN Reason: Shortness Of Breath Or Wheezing Last Admin: 06/28/20 20:24 Dose: 2 puff Documented by: Amlodipine Besylate (Amlodipine 10 Mg Tab) 10 mg PO DAILY [facility] Last Admin: 06/28/20 07:27 Dose: 10 mg Documented by: Amoxicillin/Clavulanate Potassium (Amoxic-Pot Clav 875-125mg 1 Each Tab) 1 each PO Q12HR [facility] Last Admin: 06/28/20 07:28 Dose: 1 each Documented by: Ascorbic Acid (Ascorbic Acid 500 Mg Tab) 1,000 mg PO DAILY [facility] Last Admin: 06/28/20 07:28 Dose: 1,000 mg Documented by: Atorvastatin Calcium (Atorvastatin 20 Mg Tab) 20 mg PO HS [facility] Last Admin: 06/27/20 21:32 Dose: 20 mg Documented by: Cholecalciferol (Cholecalciferol 25 Mcg (1000 Iu) Tablet) 125 mcg PO DAILY [facility] Last Admin: 06/28/20 07:27 Dose: 125 mcg Documented by: Enoxaparin Sodium (Enoxaparin 30 Mg/0.3 Ml Syringe) 30 mg SQ BID [facility] Last Admin: 06/28/20 07:28 Dose: 30 mg Documented by: Famotidine (Famotidine 20 Mg Tab) 40 mg PO DAILY [facility] Last Admin: 06/28/20 07:38 Dose: 40 mg Documented by: Fluticasone Propionate (Fluticasone 110 Mcg Inhaler) 2 puff INHALATION RT-BID [facility] Last Admin: 06/28/20 20:24 Dose: 2 puff Documented by: Guaifenesin (Guaifenesin 600 Mg Tablet.Er) 1,200 mg PO Q12HR [facility] Last Admin: 06/28/20 07:28 Dose: 1,200 mg Documented by: Guaifenesin/Dextromethorphan (Guaifenesin-Dm 100-10mg/5ml 10 Ml Cup) 10 ml PO Q6H PRN PRN Reason: Cough Last Admin: 06/28/20 07:28 Dose: 10 ml Documented by: Insulin Aspart (Insulin Aspart (Novolog) 100 Unit/Ml Vial) 0 unit SQ [facility]; Protocol Last Admin: 06/28/20 17:10 Dose: Not Given Documented by: Levothyroxine Sodium (Levothyroxine 100 Mcg Tab) 100 mcg PO 0630 [facility] Last Admin: 06/28/20 06:06 Dose: 100 mcg Documented by: Lorazepam (Lorazepam 0.5 Mg Tab) 0.5 mg PO Q8H PRN PRN Reason: Anxiety Last Admin: 06/28/20 13:43 Dose: 0.5 mg Documented by: Methylprednisolone Sodium Succinate (Methylprednisolone Sod Succi 40 Mg/Ml 1 Ml Vial) 40 mg IV Q8HR [facility] Metoclopramide HCl (Metoclopramide 5 Mg Tab) 5 mg PO TID PRN PRN Reason: Nausea Last Admin: 06/20/20 12:13 Dose: 5 mg Documented by: Morphine Sulfate (Morphine Sulfate 2 Mg/Ml Syringe) 2 mg IVP Q4H PRN PRN Reason: Pain/Discomfort Last Admin: 06/28/20 19:59 Dose: 2 mg Documented by: Naloxone HCl (Naloxone 0.4 Mg/Ml 1 Ml Vial) 0.2 mg IV Q2M PRN PRN Reason: Opioid Reversal Non-Formulary Medication (Exenatide Microspheres [Bydureon Pen]) 2 mg SQ [place] [facility] Last Admin: 06/23/20 09:35 Dose: Not Given Documented by: Nystatin (Nystatin 100,000 Unit/Ml Susp 500,000 Unit/5 Ml Cup) 500,000 unit PO QID [facility] Last Admin: 06/28/20 17:11 Dose: Not Given Documented by: Ondansetron HCl (Ondansetron 4 Mg/2 Ml Vial) 4 mg IVP Q6HR PRN PRN Reason: Nausea And Vomiting Last Admin: 06/28/20 19:59 Dose: 4 mg Documented by: Pantoprazole Sodium (Pantoprazole 40 Mg Tablet) 40 mg PO HS [facility] Last Admin: 06/27/20 21:33 Dose: 40 mg Documented by: Tiotropium Medon (Tiotropium 2.5 Mcg Inhaler) 2 puff INHALATION RT-DAILY PRN PRN Reason: Shortness Of Breath Or Wheezing Last Admin: 06/28/20 07:19 Dose: 2 puff Documented by: Zinc Sulfate (Zinc Sulfate 220 Mg Cap) 220 mg PO DAILY [facility] Last Admin: 06/28/20 07:27 Dose: 220 mg Documented by: On examination: VITAL SIGNS: 99.1, 90, 22, 141/61, 86% on 15 L GENERAL APPEARANCE: Sitting up in bed, talking, shortness of breath. RESPIRATORY: Respiratory effort increased , using accessory muscles NEUROLOGICAL: No facial asymmetry. Moving all 4 limbs PSYCHIATRY: Alert and oriented x3. Mood and affect anxious Rest of exam as per pulmonary and nursing INVESTIGATIONS, reviewed in the clinical context: June 27: D-dimer 5 CRP 56 June 26: D-dimer 4.26 CRP 140.5 Chest x-ray film personally reviewed by me-/June 26: Right lung mass. Bilateral infiltrates June 25: D-dimer 2.3 potassium 4 creatinine 0.5 CRP 7.8 Sodium 136 potassium 4.2 creatinine 0.51 WBC 3.6 hemoglobin 10.5 Pro-calcitonin 0.2 to D-dimer 5.44 CRP 44 Chest x-ray film personally reviewed by me-diffuse bilateral infiltrates Assessment and plan: -Acute hypoxic respiratory failure: Secondary to right-sided pleural effusion and COVID 19 : Worsening Continue with oxygen supplementation. Currently at high flow 15 L, nonrebreather - malignant pleural effusion recurrent pleural effusion because of which a thoracic surgery evaluated the patient as patient the is found to have Covid 19 and they recommended just a regular Thotacentesis and if this recurs then Pleurx catheter will be considered at that time. Patient is status post rmoval of 1.6 L of pleural fluid. Slow to respond -Covid 19 pneumonia leading to hypoxic respiratory failure, not improving On dexamethasone, Lovenox -Adenocarcinoma of the right lung MRI negative for metastasis to the brain , during her last hospitalization . Molecular testing has been requested on biopsy specimen by oncology. Given patient's COVID 19 and probably status post unable to offer any further treatment for the present time -Hypervolemic hyponatremia improved with IV Lasix, may have diastolic dysfunction with acute exacerbation. Presently appears to be euvolemic -Type 2 diabetes mellitus, uncontrolled with hyperglycemia Follow Accu-Cheks -Essential Hypertension Continue with amlodipine -COPD with acute exacerbation on inhalational treatments. , on Decadron -CODE STATUS DO NOT RESUSCITATE This point continue to use morphine and Ativan. Patient's to eating. Depending on the clinical course we'll decide about GIP. Now that may not be too far away.
[2020-06-28 22:09] VITALS: BP 137/55; PULSE 107; RESP 25; TEMP 97.8
[2020-06-29] MEDS ORDERED: methylPREDNISolone SOD SUCCI 40 MG/ML 1 ML VIAL IV SCH
--- NOTE | 2020-06-30 22:31 | P.DS ---
Providers Date of admission: 06/18/20 12:49 Expected date of discharge: 06/28/20 Attending physician: Quintin Judd Consults: 06/18/20 12:49 Consult Physician Stat Consulting Provider: Pete Rodriguez Consult Reason/Comments: Pleural effusion Do you want consulting provider notified?: Yes Consult Physician Stat Consulting Provider: Michael Gil Consult Reason/Comments: Lung mass, adenocarcinoma Do you want consulting provider notified?: Yes 06/18/20 12:58 Consult Physician Routine Consulting Provider: Varinder Ariza Consult Reason/Comments: pleural effusion Do you want consulting provider notified?: Yes Primary care physician: Aguilar Aj MD Hospital Course: History of presenting complaint 82-year-old female was admitted for right-sided pleural effusion secondary to adenocarcinoma of the right lung. Patient had recurrent pleural effusion was evaluated by cardiothoracic surgery for Pleurx catheter placement since the patient ended up being diagnosed with Covid 19, they recommended thoracentesis, patient underwent removal of around 1.6 L of pleural fluid. Patient was also started treatment for Covid with the Decadron, vitamin C vitamin D3 and zinc. Patient's pulse oxygen requirement is slowly been going up. Admitted with right pleural effusion secondary to carcinoma. Acute hypoxic respiratory failure. Hyponatremia. Also suspected to have secondary right lower lobe pneumonia for which he started and antibiotics including ceftriaxone and Zithromax June 27: A bit more cheerful today. Short of breath. Requiring high flow oxygen. Did eat some. Patient's 2 daughters and son at the bedside. Earlier liaison from [facility] had spoken to the family and and decided to proceed with comfort measures. When I arrived, the nurse expressed concerned about ethical issues about getting the same. I did reassure the nurse that the consultation was done for hospice information only. Patient the nurse was available. Had a lengthy discussion with the patient's family and the patient again in the treating 1. Discussed yesterday that depending on patient's clinical course we'll decide whether we will make a GI if her symptoms were to progress rapidly and she is in distress or she can go homeopathic auctioned requirement goes down. At this point patient is actively eating able to communicate, able to carry on a conversation. June 28: Sitting up at 15 L of oxygen. High flow. Requesting the oxygen to be reduced she does want to go home. Did explain to her that she cannot be discharged and sent high flow of oxygen. She is eating some. Late in the afternoon patient became a bit anxious. And having some nonspecific pain. Morphine was made more frequent and asked the nurse to give it. Also Ativan was used for anxiety. 8 in today patient went into more respiratory distress with some pain. Decision was made to proceed with inpatient hospice/GIP for symptom control. [facility] contacted Consultation: Dr. Velasquez in partners from pulmonary Dr. Gil from oncology Dr. Ariza from cardiothoracic surgery On examination: From earlier in the day VITAL SIGNS: 99.1, 90, 22, 141/61, 86% on 15 L GENERAL APPEARANCE: Sitting up in bed, talking, shortness of breath. RESPIRATORY: Respiratory effort increased , using accessory muscles NEUROLOGICAL: No facial asymmetry. Moving all 4 limbs PSYCHIATRY: Alert and oriented x3. Mood and affect anxious Rest of exam as per pulmonary and nursing INVESTIGATIONS, reviewed in the clinical context: June 27: D-dimer 5 CRP 56 June 26: D-dimer 4.26 CRP 140.5 Chest x-ray film personally reviewed by me-/June 26: Right lung mass. Bilateral infiltrates June 25: D-dimer 2.3 potassium 4 creatinine 0.5 CRP 7.8 Sodium 136 potassium 4.2 creatinine 0.51 WBC 3.6 hemoglobin 10.5 Pro-calcitonin 0.2 to D-dimer 5.44 CRP 44 Chest x-ray film personally reviewed by me-diffuse bilateral infiltrates Assessment and plan: -Acute hypoxic respiratory failure: Secondary to right-sided pleural effusion and COVID 19 : Worsening Continue with oxygen supplementation. Currently at high flow 15 L, nonrebreather - malignant pleural effusion recurrent pleural effusion because of which a thoracic surgery evaluated the patient as patient the is found to have Covid 19 and they recommended just a regular Thotacentesis and if this recurs then Pleurx catheter will be considered at that time. Patient is status post rmoval of 1.6 L of pleural fluid. Slow to respond -Covid 19 pneumonia leading to hypoxic respiratory failure, not improving On dexamethasone, Lovenox -Adenocarcinoma of the right lung MRI negative for metastasis to the brain , during her last hospitalization . Molecular testing has been requested on biopsy specimen by oncology. Given patient's COVID 19 and probably status post unable to offer any further treatment for the present time -Hypervolemic hyponatremia improved with IV Lasix, may have diastolic dysfunction with acute exacerbation. Presently appears to be euvolemic -Type 2 diabetes mellitus, uncontrolled with hyperglycemia Follow Accu-Cheks -Essential Hypertension Continue with amlodipine -COPD with acute exacerbation on inhalational treatments. , on Decadron -CODE STATUS DO NOT RESUSCITATE Disposition: Patient is being admitted to inpatient hospice/GIP for symptom control Patient Condition at Discharge: Fair Plan - Discharge Summary Discharge Rx Participant: No New Discharge Prescriptions: No Action amLODIPine [Norvasc] 10 mg PO DAILY Atorvastatin [Lipitor] 20 mg PO HS Levothyroxine Sodium [Synthroid] 100 mcg PO DAILY Metoclopramide HCl [Reglan] 5 mg PO TID PRN PRN Reason: Nausea Pantoprazole Sodium 40 mg PO HS Exenatide Microspheres [Bydureon Pen] 2 mg SQ [place] Famotidine 40 mg PO DAILY Discharge Medication List Atorvastatin [Lipitor] 20 mg PO HS 08/12/16 [History] Levothyroxine Sodium [Synthroid] 100 mcg PO DAILY 08/12/16 [History] amLODIPine [Norvasc] 10 mg PO DAILY 08/12/16 [History] Metoclopramide HCl [Reglan] 5 mg PO TID PRN 04/08/20 [History] Exenatide Microspheres [Bydureon Pen] 2 mg SQ [place] 06/10/20 [History] Famotidine 40 mg PO DAILY 06/10/20 [History] Pantoprazole Sodium 40 mg PO HS 06/10/20 [History] Follow up Appointment(s)/Referral(s): Varinder Ariza MD [STAFF PHYSICIAN] - As Needed (If pleural effusion recurs after successful treatment of Covid 19 may make appointment with our office for discussion regarding Pleurx catheter placement) Aguilar Aj MD [Primary Care Provider] - 1-2 days Discharge Disposition: DC/TRNS IP HOSP W/PLND IP READ
== END 2020-06-28 23:31 | disposition short-term general hospital, planned readmission (82) | DRG 177 ==
LOC: EC 09:44 → 5NMEDONC 12:49 → 4SSUR 18:31
PROVIDERS: ADMIT Hospitalist; ATTEND Hospitalist
PROC: 0W993ZZ Drainage of Right Pleural Cavity, Percutaneous Approach (ICD-10-PCS; principal; 2020-06-19)
PROC: 5A0945A Assistance with Respiratory Ventilation, 24-96 Consecutive Hours, High Flow/Velocity Cannula (ICD-10-PCS; 2020-06-20)
DX: U07.1 COVID-19 (principal); J96.01 Acute respiratory failure with hypoxia; J12.82 Pneumonia due to coronavirus disease 2019; C34.11 Malignant neoplasm of upper lobe, right bronchus or lung; J91.0 Malignant pleural effusion; C79.31 Secondary malignant neoplasm of brain; E87.1 Hypo-osmolality and hyponatremia; J44.1 Chronic obstructive pulmonary disease with (acute) exacerbation; J44.0 Chronic obstructive pulmonary disease with (acute) lower respiratory infection; Z51.5 Encounter for palliative care; Z66 Do not resuscitate; J98.11 Atelectasis; B37.0 Candidal stomatitis; Z87.01 Personal history of pneumonia (recurrent); Z79.890 Hormone replacement therapy; K21.9 Gastro-esophageal reflux disease without esophagitis; Z87.891 Personal history of nicotine dependence; M81.0 Age-related osteoporosis without current pathological fracture; I10 Essential (primary) hypertension; E87.70 Fluid overload, unspecified; Z85.3 Personal history of malignant neoplasm of breast; Z92.3 Personal history of irradiation; F41.9 Anxiety disorder, unspecified; E78.5 Hyperlipidemia, unspecified; E11.65 Type 2 diabetes mellitus with hyperglycemia; E03.9 Hypothyroidism, unspecified; Z74.01 Bed confinement status; Z79.01 Long term (current) use of anticoagulants; Z87.442 Personal history of urinary calculi
CPT/HCPCS: 36415; 71045; 71046; 76604; 80048; 80053; 81001; 83605; 83615; 83735; 84145; 85025; 85027; 85379; 85610; 85730; 86140; 87635; 93005; 94640; 94760; 96360; 96361; 99285

== ENCOUNTER 2020-06-28 23:35 | Inpatient (IN) | payer MEDICAID ==
[2020-06-28] MEDS ORDERED: ACETAMINOPHEN SUPPOSITORY 650 MG SUPP RECTAL PRN (23:44)
[2020-06-28] MEDS ORDERED: MORPHINE SULFATE 2 MG/ML SYRINGE IVP ONE (23:44)
[2020-06-28] MEDS ORDERED: ATROPINE OPHTH SOLN 1% 5ML BTL SUBLINGUAL PRN (23:44)
[2020-06-28] MEDS ORDERED: MORPHINE SULFATE (100 MG/2 ML) 100 MG in SODIUM CHLORIDE 0.9% 100 ML IV SCH (23:45)
[2020-06-28] MEDS ORDERED: bisacodyL 10 MG SUPP RECTAL PRN (23:46)
[2020-06-29] MEDS: LORazepam 2 MG/ML INJ IV PRN ×3 (00:09→04:10)
[2020-06-29] MEDS: MORPHINE SULFATE 2 MG/ML SYRINGE IV PRN ×5 (00:52→04:11)
--- NOTE | 2020-06-30 22:35 | P.DS ---
Providers Date of admission: 06/28/20 23:35 Expected date of discharge: 06/29/20 (Patient ) Attending physician: Quintin Judd Primary care physician: Aguilar Aj MD Hospital Course: Patient admitted to [facility] for symptom control. Under [facility] hospice. Comfort measures were initiated. Patient succumbed to the same. Family is present. Cause of : COVID 19 pneumonia Other diagnosis Adenocarcinoma of the lung COPD Plan - Discharge Summary Discharge Rx Participant: No New Discharge Prescriptions: No Action amLODIPine [Norvasc] 10 mg PO DAILY Atorvastatin [Lipitor] 20 mg PO HS Levothyroxine Sodium [Synthroid] 100 mcg PO DAILY Metoclopramide HCl [Reglan] 5 mg PO TID PRN PRN Reason: Nausea Pantoprazole Sodium 40 mg PO HS Exenatide Microspheres [Bydureon Pen] 2 mg SQ [place] Famotidine 40 mg PO DAILY Discharge Medication List Atorvastatin [Lipitor] 20 mg PO HS 08/12/16 [History] Levothyroxine Sodium [Synthroid] 100 mcg PO DAILY 08/12/16 [History] amLODIPine [Norvasc] 10 mg PO DAILY 08/12/16 [History] Metoclopramide HCl [Reglan] 5 mg PO TID PRN 04/08/20 [History] Exenatide Microspheres [Bydureon Pen] 2 mg SQ [place] 06/10/20 [History] Famotidine 40 mg PO DAILY 06/10/20 [History] Pantoprazole Sodium 40 mg PO HS 06/10/20 [History] Discharge Disposition: - Preliminary Cause of Preliminary Cause of : COVID 19 pneumonia
== END 2020-06-29 04:55 | disposition expired | DRG 951 ==
LOC: 4SSUR 23:35
PROVIDERS: ADMIT Hospitalist; ATTEND Hospitalist
DX: Z51.5 Encounter for palliative care (principal); U07.1 COVID-19; J12.82 Pneumonia due to coronavirus disease 2019; J96.01 Acute respiratory failure with hypoxia; J44.0 Chronic obstructive pulmonary disease with (acute) lower respiratory infection; J91.0 Malignant pleural effusion; C34.91 Malignant neoplasm of unspecified part of right bronchus or lung; E11.9 Type 2 diabetes mellitus without complications; K21.9 Gastro-esophageal reflux disease without esophagitis; M81.0 Age-related osteoporosis without current pathological fracture; Z79.890 Hormone replacement therapy; Z79.899 Other long term (current) drug therapy; Z87.891 Personal history of nicotine dependence; Z90.49 Acquired absence of other specified parts of digestive tract; Z87.19 Personal history of other diseases of the digestive system; Z87.81 Personal history of (healed) traumatic fracture; Z98.42 Cataract extraction status, left eye; Z98.41 Cataract extraction status, right eye; Z96.1 Presence of intraocular lens; Z87.39 Personal history of other diseases of the musculoskeletal system and connective tissue; Z87.2 Personal history of diseases of the skin and subcutaneous tissue; Z87.442 Personal history of urinary calculi; Z98.890 Other specified postprocedural states